=== PATIENT | female | born 1940 | race Caucasian/White ===

== ENCOUNTER → 2018-12-27 10:39 | Outpatient (CLI) | payer MEDICARE, OTHER, SELFPAY ==
[2018-12-24 13:00] VITALS: BMI 34.5
--- NOTE | 2018-12-27 10:43 | VDUE_ITS ---
Reason For Study: pre op testing, renal failure Right Arm Left Arm Right cephalic vein is compressible. Left cephalic vein is compressible. Right Cephalic Vein at the shoulder Left Cephalic Vein at the shoulder measures .269 x .285 cm. measures .333 x .366 cm. Right Cephalic Vein mid bicep measures .239 Left Cephalic Vein at mid bicep measures .316 x .255 cm. x .312 cm. Right Cephalic Vein above antecub Left Cephalic Vein above antecub measures .264 x .269 cm. measures .349 x .345 cm. Right Cephalic Vein below antecub Left Cephalic Vein below antecub measures .189 x .170 cm. measures .278 x .287 cm. Right Cephalic Vein in the forearm Left Cephalic Vein in the forearm measures .194 x .209 cm. measures .262 x .262 cm. Right Cephalic Vein at the wrist Left Cephalic Vein at the wrist measures .299 measures .254 x .259 cm. x .291 cm. Right basilic vein is compressible. Left basilic vein is compressible. Right Basilic Vein at the origin Basilic vein at origin measures .458 x .486 measures .332 x .332 cm. cm. Right Basilic Vein above antecub Basilic vein above antecub measures .316 measures .378 x .405 cm. x .325 cm. Right Basilic Vein below antecub Basilic vein below antecub measures .275 measures .199 x .224 cm. x .254 cm. Right Basilic Vein in the forearm Basilic vein in the forearm measures .242 measures .164 x .154 cm. x .270 cm. Right Basilic Vein at the wrist measures .119 Basilic vein at the wrist measures .212 x .135 cm. x .221 cm. Brachial artery 86.2 cm/s. Brachial artery 110 cm/s. Brachial artery .333 x .363 cm. Brachial artery .329 x .329 cm. Radial artery 83.8 cm/s. Radial artery 77.4 cm/s. Radial artery .191 x .179 cm. Radial artery .162 x .170 cm. Interpretation Summary Patent and compressible bilateral cephalic and basilic veins as noted. Small right forearm cephalic vein Adequate left forearm and upper arm cephalic vein. Adequate bilateral upper arm basilic veins. Small bilateral radial arteries. Normal bilateral brachial arteries. Ordering Physician: Hans Rousseau Performed By: Preston Hebert RVT ?
== END ==
PROVIDERS: Family Provider Internal Medicine; PCP Internal Medicine; Referring Provider Internal Medicine Cardiovascular Disease; Visit Provider Internal Medicine Cardiovascular Disease
DX: Z01.818 Encounter for other preprocedural examination (principal); N18.4 Chronic kidney disease, stage 4 (severe)
CPT/HCPCS: 93970; 93971; G0365

== ENCOUNTER 2019-01-14 07:28 | Day surgery (SDC) | payer MEDICARE, OTHER, SELFPAY ==
[2018-12-24 13:00] VITALS: BMI 34.5
[2019-01-14 07:55] VITALS: BP 141/61; PULSE 68; RESP 16; TEMP 36; O2SAT 94; BMI 33.2
[2019-01-14 08:20] LABS: Bedside Glucose 281 mg/dL (70-110)
[2019-01-14] MEDS: Insulin Lispro 100 UNIT/ML INSULN.PEN 6 UNIT SC (08:46)
[2019-01-14] MEDS: Heparin Injection (Vial) 5,000 UNIT/ML VIAL 5000 UNIT (09:37)
--- NOTE | 2019-01-14 09:57 | DCINST_ITS ---
Discharge Diet: Renal Diet Discharge Activity: May Not Drive - for 2-3 days or while taking narcotic pain medications., May Shower, May Take a Tub Bath - in 5 days. Lifting Restrictions: 5 pounds Keep extremity elevated above heart level: - - Keep arm elevated above the heart level for 3 days. Additional Activity Instructions:: Exercise hand vigorously with a stress ball. Call your doctor if your incision/area has: Continuous Slow Oozing, Sudden Increased Bleeding - apply pressure and call your doctor., Increased Pain/ Swelling, Increased Redness, Foul Smelling Discharge Call your doctor if you observe: Fever of 101 or Higher Suture Line Care: Avoid Pulling/Pushing, Avoid Pinching/Bending Cleanse incision/area with: Keep Dressing Clean & Dry Additional Dressing/Incision Instructions:: Change or remove dressing in 2-3 days. You may then protect with a gauze bandaid as needed Allergies/Adverse Reactions: Allergies No Known Allergies Allergy (Verified 01/07/19 12:46) Medications to take at Discharge Fenofibrate 134 mg PO DAILY 03/01/16 aspirin 81 mg tablet,delayed release 81 mg PO QDAY 11/09/17 atorvastatin 40 mg tablet 40 mg PO QDAY 11/09/17 carvedilol 25 mg tablet 12.5 mg PO BID tab 06/18/18 ranitidine 150 mg tablet 150 mg PO QDAY 06/18/18 clonidine HCl 0.3 mg tablet 0.3 mg PO TID tab 10/09/18 furosemide 40 mg tablet 40 mg PO BID 10/09/18 Insulin Glargine,Hum.rec.anlog [Basaglar Kwikpen U-100] 32 unit SC QHS 01/07/19 Insulin Lispro [Humalog] 20 unit SQ BREAKFAST 01/07/19 Insulin Lispro [Humalog] 20 unit SQ LUNCH 01/07/19 Insulin Lispro [Humalog] 29 unit SQ DINNER 01/07/19 Primary Care Physician: Gabriela Dickens [Primary Care Provider] - Test Results: Test results from this visit will be discussed in further detail at your follow- up appointment, if applicable. Please Follow Up With: Hans Rousseau MD - [phone] When: Call to make an appointment for suture removal and follow up in 7-10 days
[2019-01-14] MEDS: Bupivacaine Mpf 0.5% 30 ML VIAL (10:08)
--- NOTE | 2019-01-14 11:18 | OP.PCM_ITS ---
Problem List (1) Chronic renal failure, stage 4 (severe) Status: Acute Report of Operation Date of Procedure: 01/14/19 Pre-Operative Diagnosis: Stage IV chronic renal insufficiency Post-Operative Diagnosis: Same Surgery/Procedure Performed:: Left forearm radial to cephalic arteriovenous hemodialysis fistula creation Description of Surgical Findings:: Timeout and informed consent was obtained. 79-year-old female taken down from placement table underwent monitored anesthesia care. Left upper extremity was sterilely prepped and draped. Ultrasound mapping had been performed. 1% lidoc irving mixed 50-50 with 0.5% Marcaine was used as local anesthetic. A total of 8 cc was used. A slightly oblique transverse incision was made the left volar radial wrist. Sharp and blunt dissection was used to identify the cephalic vein and it was dissected free. Then sharp blunt dissection was used to identify the radial artery. The patient received 7000 units of heparin intravenously. The vein was secured distally with a Hemoclip was then spatulated to length. A peripheral vascular clamps were placed on these partially mobilized radial artery. 11 blade was used to make an arteriotomy which was extended with Jordan scissors. A end-to-side anastomosis was created with running 7-0 Prolene. Prior to completion there appeared to be adequate inflow and outflow. The anastomosis was completed with good flow. Some venospasm was gently treated with some massage. The vein appeared to have a good positional lie. Doppler suggested good flow. The wound was closed with a deep layer of interrupted 3-0 Vicryl and then a running septic or 4-0 Monocryl. Steri-Strips Telfa tape dressings applied. Sponge and instrument and needle counts were reported the surgery were correct. Blood loss was minimal. She tolerated procedure well was taken to the recovery area in satisfactory condition with a viable hand and no apparent complication. Specimens none. Drains none. Blood loss minimal. Hans Rousseau M.D., F.A.C.S. Type of Anesthesia:: Local MAC Anesthesiologist: Aaron Ruth
[2019-01-14 11:25] VITALS: BP 125/60; BP 141/61; PULSE 73; PULSE 75; RESP 18; TEMP 36.3; O2SAT 95; O2SAT 96
[2019-01-14 11:31] VITALS: BP 139/64; BP 141/61; PULSE 72; RESP 18; O2SAT 95
[2019-01-14 11:35] VITALS: BP 135/58; BP 141/61; PULSE 72; RESP 18; O2SAT 96
[2019-01-14 11:36] LABS: Bedside Glucose 205 mg/dL (70-110)
[2019-01-14 11:39] VITALS: BP 139/61; BP 141/61; PULSE 71; RESP 18; TEMP 36.2; O2SAT 96
[2019-01-14 12:58] VITALS: BP 141/57; BP 141/61; PULSE 65; RESP 18; TEMP 36.6; O2SAT 95
== END 2019-01-14 13:00 | disposition home or self-care (01) ==
LOC: SDC 07:29 → AC 07:30
PROVIDERS: Family Provider Internal Medicine; PCP Internal Medicine; Referring Provider Surgery; Visit Provider Surgery
PROC: (CPT 36821; principal; 2019-01-14 09:30)
DX: Z45.2 Encounter for adjustment and management of vascular access device (principal); I12.9 Hypertensive chronic kidney disease with stage 1 through stage 4 chronic kidney disease, or unspecified chronic kidney disease; E11.22 Type 2 diabetes mellitus with diabetic chronic kidney disease; N18.4 Chronic kidney disease, stage 4 (severe); E78.00 Pure hypercholesterolemia, unspecified; K21.9 Gastro-esophageal reflux disease without esophagitis; Z99.2 Dependence on renal dialysis; Z79.4 Long term (current) use of insulin; Z87.891 Personal history of nicotine dependence; Z79.899 Other long term (current) drug therapy
CPT/HCPCS: 36821; 82962

== ENCOUNTER 2019-02-14 11:49 | Day surgery (SDC) | payer MEDICARE, OTHER, SELFPAY ==
[2019-02-05 13:43] VITALS: BMI 34.2
[2019-02-14] VITALS (7 sets, daily range): BP systolic 141–165; BP diastolic 60–68; PULSE 65–73; RESP 16–17; TEMP 36.3–36.6; O2SAT 96–99; BMI 31.8
[2019-02-14 12:36] LABS: Bedside Glucose 155 mg/dL (70-110)
[2019-02-14] MEDS: Heparin Injection (Vial) 5,000 UNIT/ML VIAL 5000 UNIT (15:30)
[2019-02-14] MEDS: Bupivacaine Mpf 0.5% 30 ML VIAL (15:30)
--- NOTE | 2019-02-14 16:24 | PCM.OPRPT ---
Problem List (1) Problem with dialysis access Status: Acute Qualifiers: Encounter type: subsequent encounter Qualified Code(s): T82.898D - Other specified complication of vascular prosthetic devices, implants and grafts, subsequent encounter Report of Operation Date of Procedure: 02/14/19 Pre-Operative Diagnosis: Problem with left forearm radiocephalic hemodialysis access to deep for utilization Post-Operative Diagnosis: Same Surgery/Procedure Performed:: Transposition left forearm cephalic vein to radial artery arteriovenous hemodialysis fistula creation Description of Surgical Findings:: Timeout and informed consent was obtained. 79-year-old female was taken out from placement table underwent monitored anesthesia care local anesthetic. 30 cc of 1% lidocaine mixed 50-50 with 0.5% Marcaine and 15 cc of 0.5% lidocaine was used. The left upper extremity sterilely prepped draped. Ultrasound was used to map the course of the vein. Local was instilled. A longitudinal incision was made in the left forearm. Tedious sharp and blunt dissection was used to identify the cephalic vein. Side branches were secured with 3-0 Vicryl ligatures and hemoclips. The vein was completely released up to the antecubital space. Then sharp and blunt dissection was used at the wrist to identify the radial artery and circumferential control was obtained. The vein was ligated distally with 3-0 Vicryl it was irrigated and then using a [place] tunneler closer to the surface medial to the harvest site it was placed through the tunnel. Then the patient received 8000 units of heparin. Peripheral vascular clamps were placed on the radial artery and 11 blade was used to make an arteriotomy which was extended with Jordan scissors. The vein had been spatulated. A end-to-side anastomosis was created with a running 7-0 Prolene. Prior to completion was good antegrade and retrograde flow. The anastomosis was completed and noted to be widely patent. There was good flow through the fistula and this was confirmed with Doppler there was good positional lie. The wound was then closed with multiple deep layers of interrupted 3-0 Vicryl. The skin edges were approximated with a running subcuticular 4-0 Monocryl. Steri-Strips Telfa soft roll Uzair wrap applied. Sponge and instrument and needle counts were reported the surgeon be correct. Blood loss was she tolerated the procedure well hand was viable at the completion no apparent complication. Specimens none. Drains none. Blood loss minimal. Hans Rousseau M.D., F.A.C.S. Type of Anesthesia:: Local MAC Anesthesiologist: Aaron Ruth
--- NOTE | 2019-02-14 17:34 | DCINST_ITS ---
Discharge Diet: Renal Diet Discharge Activity: May Not Drive - for 2-3 days or while taking narcotic pain medications., May Not Shower, May Take a Tub Bath - in 5 days. Lifting Restrictions: 5 pounds Keep extremity elevated above heart level: - - Keep arm elevated above the heart level for 3 days. Additional Activity Instructions:: Exercise hand vigorously with a stress ball. Call your doctor if your incision/area has: Continuous Slow Oozing, Sudden Increased Bleeding - apply pressure and call your doctor., Increased Pain/ Swelling, Increased Redness, Foul Smelling Discharge Call your doctor if you observe: Fever of 101 or Higher Suture Line Care: Avoid Pulling/Pushing, Avoid Pinching/Bending Cleanse incision/area with: Keep Dressing Clean & Dry Additional Dressing/Incision Instructions:: You may remove your dressings in two days. Leave the steri strips on for one week. Elevate your arm for comfort. Please keep the incision clean and dry for 4 days then you may shower if no drainage from the wound Allergies/Adverse Reactions: Allergies No Known Allergies Allergy (Verified 02/11/19 11:09) Medications to take at Discharge Fenofibrate 134 mg PO DAILY 03/01/16 aspirin 81 mg tablet,delayed release 81 mg PO QDAY 11/09/17 atorvastatin 40 mg tablet 40 mg PO QDAY 11/09/17 ranitidine 150 mg tablet 150 mg PO QDAY 06/18/18 clonidine HCl 0.3 mg tablet 0.3 mg PO TID tab 10/09/18 furosemide 40 mg tablet 40 mg PO BID 10/09/18 Insulin Lispro [Humalog] 20 unit SQ BREAKFAST 01/07/19 Insulin Lispro [Humalog] 20 unit SQ LUNCH 01/07/19 Insulin Lispro [Humalog] 29 unit SQ DINNER 01/07/19 carvedilol 25 mg tablet 25 mg PO BID tab 01/29/19 Insulin Glargine [Lantus (BKC)] 32 units SC QHS 02/11/19 Primary Care Physician: Gabriela Dickens [Primary Care Provider] - Test Results: Test results from this visit will be discussed in further detail at your follow- up appointment, if applicable. Please Follow Up With: Hans Rousseau MD - [phone] When: Call to make an appointment for suture removal and follow up in 7-10 days
== END 2019-02-14 18:00 | disposition home or self-care (01) ==
LOC: SDC 11:51 → AC 11:51
PROVIDERS: Family Provider Internal Medicine; PCP Internal Medicine; Referring Provider Surgery; Visit Provider Surgery
PROC: (CPT 36820; principal; 2019-02-14 13:45)
DX: T82.898A Other specified complication of vascular prosthetic devices, implants and grafts, initial encounter (principal); I12.9 Hypertensive chronic kidney disease with stage 1 through stage 4 chronic kidney disease, or unspecified chronic kidney disease; E11.22 Type 2 diabetes mellitus with diabetic chronic kidney disease; N18.4 Chronic kidney disease, stage 4 (severe); E11.65 Type 2 diabetes mellitus with hyperglycemia; E78.5 Hyperlipidemia, unspecified; K21.9 Gastro-esophageal reflux disease without esophagitis; Z99.2 Dependence on renal dialysis; Z79.4 Long term (current) use of insulin; Z79.82 Long term (current) use of aspirin; Z79.899 Other long term (current) drug therapy; Z87.891 Personal history of nicotine dependence
CPT/HCPCS: 01844; 36820; 82962; J7120

== ENCOUNTER → 2020-01-01 13:58 | Outpatient (CLI) | payer MEDICARE, OTHER, SELFPAY ==
[2019-04-08 12:39] VITALS: BMI 31.8
--- NOTE | 2020-01-01 14:58 | NEURO_ITS ---
NCS and/or EMG Patient Report Ordering Doctor: Gabriela Dickens DATE OF SERVICE: 01/01/20 Brian Bentley is an 79-year-old female presents for electrodiagnostic testing of the left upper limb. She reports numbness and tingling in the left hand. Electrodiagnostic findings: Left median motor nerve demonstrates prolonged dista l latency with normal amplitude and reduced conduction velocity. Normal left ulnar motor response, including conduction across the elbow. Normal median ulnar F-wave. Prolonged left median sensory latency at the wrist. Needle EMG testing was deferred due to dialysis catheter in the left forearm. Electrodiagnostic impression: This is an abnormal study. 1. Electrodiagnostic findings demonstrate left-sided median mononeuropathy. This is consistent with a moderate left carpal tunnel syndrome. If there are any further questions, please do not hesitate to contact me.
== END ==
PROVIDERS: PCP Internal Medicine; Referring Provider Internal Medicine; Visit Provider Internal Medicine
DX: R20.0 Anesthesia of skin (principal); R20.2 Paresthesia of skin
CPT/HCPCS: 95909

== ENCOUNTER 2020-06-30 07:29 | Inpatient (IN) | payer MEDICARE, OTHER, SELFPAY ==
[2020-01-24 13:25] VITALS: BMI 31.8
[2020-06-30] VITALS (23 sets, daily range): BP systolic 92–167; BP diastolic 23–112; PULSE 77–93; RESP 17–24; TEMP 36.1–37.3; O2SAT 93–100; BMI 36.0
--- NOTE | 2020-06-30 06:50 | RAD_ITS ---
STUDY: X-RAY CHEST REASON FOR EXAM: Female, 80 years old. reps insufficiency, severe sepsis TECHNIQUE: Single AP portable view of the chest. COMPARISON: None. FINDINGS: EKG electrodes are seen. Minimal increased markings at the lung bases suggestive of bibasilar atelectasis. There is no demonstrated pleural abnormality. There is mild cardiac enlargement. Normal mediastinum and chaz. Normal visualized pulmonary arteries. There is atherosclerotic calcification of the aortic arch with tortuosity. Normal visualized thoracic spine. Normal visualized ribs, clavicles, and shoulders. There is no demonstrated abnormality of the visualized soft tissue structures of the upper abdomen. RAD/Chest 1 View (Portable) IMPRESSION: Minimal degree of increased linear markings at the lung bases suggestive of bibasilar atelectasis. Electronically Signed: Gal Guzman, at 9:49 EDT , Service support ,
--- NOTE | 2020-06-30 06:55 | CON.PCM_ITS ---
Reason for Consult Date of Consultation: 06/30/20 Reason for Consultation: Severe Sepsis History of Present Illness: The patient is an 80-year-old female, with a history as outlined below, who presented to the medical intensive care unit as a transfer of care from [facility] on the morning of June 30. The patient apparently presented to the outside emergency department at 2316 hours with subjective fever, chills and shortness of breath. The patient does have end-stage renal disease and is on hemodialysis on a Monday, Monday, Monday schedule. Outside laboratory work-up was significant for a creatinine of 4.2. Arterial blood gas revealed a pH of 7.4 with a corresponding PCO2 of 42 and PO2 of 72. Urine analysis was negative for nitrites, positive for leukocytes with greater than 50 white blood cells and 4+ urine bacteria. Lactate was elevated to 2.2. BNP and troponin were within normal limits. White blood cell count was within normal limits. The patient did have normal documented systolic blood pressures throughout her stay at the outside hospital emergency department. Of note, the patient was only given 500 cc of LR at the outside hospital but did receive both vancomycin and Zosyn. A CTA chest was obtained and revealed no evidence for pulmonary embolism. There was evidence of scattered subsegmental atelectasis without evidence of focal infiltrate. On initial presentation to the medical intensive care unit, the patient had several blood pressure readings with mean arterial pressures less than 60 mmHg. Orders for sepsis fluids at 30 cc/kg were ordered. Past Medical History Past Medical History (Chronic Problems): Chronic Problems (Last Reviewed 06/30/20 @ 09:[address] 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 Continues to use salt as well Hypertension associated with chronic kidney disease due to type 2 diabetes mellitus (Chronic) BP remains elevated. 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 Diet and food choices remain an issue. Has not changed her eating habits and therefore BG readings have never stabilized. Pt has made choices which have continued to create high BG readings. She is now being prepped for upcoming dialysis. She is doing well with making insulin adjustments and making BG corrections. She is doing fairly well with exercise. Lymphedema of left lower extremity (Chronic) Medical History: Medical History (Last Reviewed 06/30/20 @ 09:[address] Tadeo Larsen MD) Carpal tunnel syndrome of left wrist (Chronic) G56.02 Problem with dialysis access (Chronic) T82.898A Chronic renal failure, stage 4 (severe) (Chronic) N18.4 Melanoma (Chronic) C43.9 Carpal tunnel syndrome (Chronic) G56.00 HTN (hypertension) (Chronic) I10 Hyperlipidemia (Chronic) E78.5 Diabetes type 2, uncontrolled (Chronic) E11.65 dx : last exacerbation : dka : never hypoglycemic episode : 11/22 er visit : never Allergies No Known Allergies Allergy (Verified 06/30/20 06:11) Home Medications: Ambulatory Orders Medication Instructions Recorded Fenofibrate 134 mg PO DAILY 03/01/16 aspirin 81 mg tablet,delayed 81 mg PO QDAY 11/09/17 release atorvastatin 40 mg tablet 40 mg PO QHS 11/09/17 ranitidine HCl 150 mg tablet 150 mg PO QDAY 06/18/18 clonidine HCl 0.3 mg tablet 0.3 mg PO BID tab 10/09/18 furosemide 40 mg tablet 40 mg PO BID 10/09/18 Insulin Lispro [Humalog] 20 - 26 unit SQ TIDCM 01/07/19 carvedilol 25 mg tablet 25 mg PO QHS tab 01/29/19 Insulin Glargine [Lantus (BKC)] 45 units SUBCUT QHS 02/11/19 calcium carbonate 500 mg calcium 500 mg PO BID 01/24/20 (1,250 mg) chewable tablet pregabalin 100 mg capsule 100 mg PO QHS cap 01/24/20 Calcium Acetate 667 mg PO TID 06/30/20 Carvedilol [Coreg] 12.5 mg PO DAILY 06/30/20 Cholecalciferol (Vitamin D3) 5,000 unit PO DAILY 06/30/20 [Vitamin D3] Folic Acid/Vit B Complex and C 0.8 mg PO DAILY 06/30/20 [Renal-Shameka Tablet] Gabapentin [Neurontin] 100 mg PO DAILY 06/30/20 Surgical History: Surgical History (Last Reviewed 01/24/20 @ 13:23 by Jolene Juan) Hx of arteriovenostomy for renal dialysis (Chronic) Z99.2 01/14/19 Fistulagram- 02/14/19 S/P CECILIO-BSO (Chronic) Z90.710, Z90.722, Z90.79 H/O bilateral cataract extraction (Inactive) Z98.41, Z98.42 H/O colonoscopy (Inactive) Z98.890 H/O laminectomy (Inactive) Z98.890 melanoma removal (Acute) H/O carpal tunnel repair (Inactive) Z98.890 Surgical History: - - Lymph node resection L groin, otherwise noncontributory Smoking Status: Former smoker - *Family History Maternal Family History: Family History (Last Reviewed 06/30/20 @ 09:[address] Tadeo Larsen MD) Mother Diabetes Heart disease Hypertension High cholesterol Seizures Father Diabetes Heart disease High cholesterol Hypertension Kidney disease CVA (cerebral vascular accident) Review of Systems Constitutional: Reports: Chills, Fever Eyes: Denies: Blurred vision, Double vision HEENT: Denies: Head Aches, Sinus Congestion, Sinus Drainage Cardiovascular: Denies: Chest Pain, Palpitations Respiratory: Reports: Shortness of Breath. Denies: Cough Gastrointestinal: Denies: Abdominal Pain, Nausea, Vomiting Genitourinary: Denies: Dysuria Musculoskeletal: Denies: Joint Pain, Joint Tenderness Skin: Denies: Rash, Wounds Neurological: Denies: Numbness, Tingling, Focal weakness Psychiatric: Denies: Anxiety, Depression, Homicidal Ideations, Suicidal Ideations Hematologic/ Lymphatic: Reports: Anemia Patient Problems: Active and Suspected Problems (Last Reviewed 06/30/20 @ 09:[address] Tadeo Larsen MD) Sepsis (Acute) UTI (urinary tract infection) (Acute) ESRD (end stage renal disease) on dialysis (Acute) Objective: The patient's most recent lab work, culture data and imaging studies have all been personally reviewed. - Physical Exam Vitals/I&O's: Vital Signs Temp Pulse Resp BP Pulse Ox 98.1 F 90 17 92/23 L 93 06/30/20 06:07 06/30/20 06:30 06/30/20 06:30 06/30/20 06:30 06/30/20 06:30 Oxygen Flow Rate (L/min) 4 Oxygen Delivery Method Nasal Cannula Weight: 203 lb 7.787 oz Body Mass Index (BMI) 36.0 General: Alert, Cooperative HEENT: Atraumatic, PERRLA, Normocephalic Oral: Dry Mucosa Neck: Supple, No Nodes, Trachea Midline Lungs: No rhonchi, No wheeze, No rales, Diminished Cardiovascular: Regular rate, Regular Rhythm Abdomen: Bowel Sounds Present, Soft, Non Tender Extremities: No clubbing, No cyanosis, No edema Skin: No breakdown Musculoskeletal: No Muscle Wasting Lymphatic: No Cervical, Supraclavicular, or Inguinal Adenopathy Neurological: Cranial nerves II-XII grossly intact, Neuro grossly intact Psych/Mental Status: Flat Affect Labs (Last 48 Hours) 06/30/20 06/30/20 06/30/20 06:48 07:05 07:05 WBC 4.4 RBC 2.12 L Hgb 6.7 L Hct 22.1 L MCV 104.2 H MCH 31.6 MCHC 30.3 L RDW Std Deviation 54.6 H RDW Coeff of Rohan 14.6 Plt Count MPV 12.1 H Immature Gran % (Auto) 0.900 Neut % (Auto) 84.0 H Lymph % (Auto) 5.5 L [place] % (Auto) 7.1 Eos % (Auto) 2.5 Baso % (Auto) 0.0 Absolute Neuts (auto) 3.7 Absolute Lymphs (auto) 0.24 L Total Counted DISASTER OR DAMAGE [employer]OL SPECIALIST Neutrophils % (Manual) 82 H Lymphocytes % (Manual) 12 L Monocytes % (Manual) 6 Nucleated RBC % 0 Differential Comment MANUAL DIFF Platelet Estimate ADEQUATE Plt Morphology Comment LARGE RBC Morphology NORM C+C Hypochromasia 1+ Sodium 139 Potassium 3.7 Chloride 108 H Carbon Dioxide 16.0 L Anion Gap 15 BUN 28 H Creatinine 2.36 H Estim Creat Clear Calc 15.20 Est GFR (MDRD) Af Amer 25 L Est GFR (MDRD) Non-Af 21 L BUN/Creatinine Ratio 11.9 Glucose 72 L Lactic Acid Calcium 6.7 L Total Bilirubin 0.30 AST 26 ALT 18 Alkaline Phosphatase 32 L Total Protein 3.2 L Albumin 1.4 L Globulin 1.8 L Albumin/Globulin Ratio 0.8 L Urine Color Urine Clarity Urine pH Ur Specific [place] Urine Protein Urine Glucose (UA) Urine Ketones Urine Occult Blood Urine Nitrite Urine Bilirubin Urine Urobilinogen Ur Leukocyte Esterase Urine RBC Urine WBC Ur Squamous Epith Cells Urine Bacteria Urine Mucus COVID-19 (BRIAN) Not Detected MRSA (PCR) POC Glucose 06/30/20 06/30/20 06/30/20 07:05 08:10 09:40 WBC RBC Hgb Hct MCV MCH MCHC RDW Std Deviation RDW Coeff of Rohan Plt Count MPV Immature Gran % (Auto) Neut % (Auto) Lymph % (Auto) [place] % (Auto) Eos % (Auto) Baso % (Auto) Absolute Neuts (auto) Absolute Lymphs (auto) Total Counted Neutrophils % (Manual) Lymphocytes % (Manual) Monocytes % (Manual) Nucleated RBC % Differential Comment Platelet Estimate Plt Morphology Comment RBC Morphology Hypochromasia Sodium Potassium Chloride Carbon Dioxide Anion Gap BUN Creatinine Estim Creat Clear Calc Est GFR (MDRD) Af Amer Est GFR (MDRD) Non-Af BUN/Creatinine Ratio Glucose Lactic Acid 11.3 H* 1.3 Calcium Total Bilirubin AST ALT Alkaline Phosphatase Total Protein Albumin Globulin Albumin/Globulin Ratio Urine Color Urine Clarity Urine pH Ur Specific [place] Urine Protein Urine Glucose (UA) Urine Ketones Urine Occult Blood Urine Nitrite Urine Bilirubin Urine Urobilinogen Ur Leukocyte Esterase Urine RBC Urine WBC Ur Squamous Epith Cells Urine Bacteria Urine Mucus COVID-19 (BRIAN) MRSA (PCR) Negative POC Glucose 06/30/20 06/30/20 06/30/20 09:40 09:40 12:42 WBC 6.4 RBC 3.21 L Hgb 9.7 L Hct 32.3 L MCV 100.6 H MCH 30.2 MCHC 30.0 L RDW Std Deviation 54.1 H RDW Coeff of Rohan 14.6 Plt Count MPV 12.7 H Immature Gran % (Auto) 0.500 Neut % (Auto) 83.2 H Lymph % (Auto) 6.9 L [place] % (Auto) 6.4 Eos % (Auto) 2.8 Baso % (Auto) 0.2 Absolute Neuts (auto) 5.4 Absolute Lymphs (auto) 0.44 L Total Counted Neutrophils % (Manual) Lymphocytes % (Manual) Monocytes % (Manual) Nucleated RBC % 0 Differential Comment Not Reportable Platelet Estimate SLT DEC Plt Morphology Comment RBC Morphology Hypochromasia Sodium Potassium Chloride Carbon Dioxide Anion Gap BUN Creatinine Estim Creat Clear Calc Est GFR (MDRD) Af Amer Est GFR (MDRD) Non-Af BUN/Creatinine Ratio Glucose Lactic Acid Calcium Total Bilirubin AST ALT Alkaline Phosphatase Total Protein Albumin Globulin Albumin/Globulin Ratio Urine Color Straw Urine Clarity Sl. Cloudy Urine pH 5.0 Ur Specific [place] 1.015 Urine Protein 100 H Urine Glucose (UA) Normal Urine Ketones Negative Urine Occult Blood 50 H Urine Nitrite Negative Urine Bilirubin Negative Urine Urobilinogen Normal Ur Leukocyte Esterase 500 H Urine RBC 0-5 SEEN Urine WBC >100 SEEN Ur Squamous Epith Cells 0-5 SEEN Urine Bacteria 3+ Urine Mucus 0 SEEN COVID-19 (BRIAN) MRSA (PCR) POC Glucose 124 H Microbiology 06/30/20 06:55 Mucosa - Nasopharyngeal Respiratory Panel (PCR) - Final Clinical Impression(s) from Imaging Studies Chest X-Ray 06/30/20 06:50 IMPRESSION: Minimal degree of increased linear markings at the lung bases suggestive of bibasilar atelectasis. Electronically Signed: Gal Guzman, at 9:49 EDT , Service support , Current Medications Sodium Chloride () 250 mls @ 15 mls/hr IV .[id number] PRN PRN Reason: Saline Flush Sodium Chloride () 250 mls @ 15 mls/hr IV .[id number] PRN PRN Reason: Additional IVPB Infusion Sodium Chloride () 250 mls @ 15 mls/hr IV .[id number] PRN PRN Reason: Saline Flush Piperacillin Sod/Tazobactam (Sod 3.375 gm/ Sodium Chloride) 50 mls @ 12.5 mls/hr IV Q8 RAH Vancomycin IV Pharmacy to Dose (1 ea/ Sodium Chloride) 500 mls @ 250 mls/hr IV X1 PRN; Protocol PRN Reason: Rx to Dose Lactated Ringer's () 1,000 mls @ 999 mls/hr IV .[id number] [facility] Stop: 06/30/20 07:50 Sodium Chloride () 10 - 40 ml IV UD PRN PRN Reason: SALINE FLUSH Sodium Chloride () 10 - 40 ml IV UD PRN PRN Reason: SALINE FLUSH Assessment/Plan Active and Suspected Problems (Last Reviewed 06/30/20 @ 09:[address] Tadeo Larsen MD) Sepsis (Acute) UTI (urinary tract infection) (Acute) ESRD (end stage renal disease) on dialysis (Acute) RECOMMENDATIONS: 1. Additional fluid resuscitation per sepsis protocol. 2. Obtain repeat lactate level. 3. Initiate broad-spectrum antimicrobials. 4. Obtain blood and urine cultures. 5. Check MRSA screen and await results of coronavirus PCR. IMPRESSIONS: 1. Severe sepsis Most likely secondary to urinary tract source of infection. Sepsis protocol fluids have been ordered. The patient only received 500 cc at the outside hospital prior to transfer. Upon arrival to the ICU she was notably hypotensive. Plan to completely fluid resuscitate and reassess hemodynamics. In the interim, broad-spectrum antimicrobials will be initiated. Cultures will be obtained. MRSA screen and coronavirus PCR are pending. Although initial lactate was elevated to 11.3, I do suspect that this is erroneous, and likely the consequence of tourniquet use with blood draw. We will plan to repeat lactate and confirm. 2. End-stage renal disease on hemodialysis Nephrology will be consulted to assist with hemodialysis needs. The patient has not missed any sessions recently. 3. History of hypertension/hyperlipidemia/diabetes mellitus Complicates care, management, recovery and prognosis. Hold antihypertensives/Lasix for now, given tenuous hemodynamics. This note was generated with [employer] dictation software. It may contain incorrect words, spelling, and punctuation that were not noted in checking the note before signing. Inpatient E&M: [id number] Init Hosp L3
--- NOTE | 2020-06-30 06:56 | SEPSIS_ITS ---
Sepsis Note - Physical Exam/Vitals Subjective: The patient was reevaluated after fluid resuscitation efforts were completed. Objective: Temp Pulse Resp BP Pulse Ox 98.1 F 90 17 92/23 L 93 06/30/20 06:07 06/30/20 06:30 06/30/20 06:30 06/30/20 06:30 06/30/20 06:30 General: Alert, Cooperative Lungs: Diminished Cardiovascular: Regular rate, Regular Rhythm Capillary Refill: <3 seconds Peripheral Pulses: Normal Skin Color: [place] - Assessment/Plan Continue current supportive measures. - Attestation Sepsis Attestation: Sepsis re-evaluation was performed
[2020-06-30] MEDS: Lactated Ringers 1,000 ML 750 ML IV (07:05)
--- NOTE | 2020-06-30 07:28 | HP.PCM_ITS ---
Problem List (1) Carpal tunnel syndrome of left wrist Status: Chronic (2) Problem with dialysis access Status: Chronic Qualifiers: Encounter type: subsequent encounter Qualified Code(s): T82.898D - Other specified complication of vascular prosthetic devices, implants and grafts, subsequent encounter (3) Hx of arteriovenostomy for renal dialysis Status: Chronic Comment: 01/14/19 Fistulagram- 02/14/19 (4) Chronic renal failure, stage 4 (severe) Status: Chronic (5) S/P CECILIO-BSO Status: Chronic (6) Melanoma Status: Chronic (7) Carpal tunnel syndrome Status: Chronic (8) HTN (hypertension) Status: Chronic (9) Hyperlipidemia Status: Chronic (10) Diabetes type 2, uncontrolled Status: Chronic Comment: dx : last exacerbation : dka : never hypoglycemic episode : 11/22 er visit : never (11) melanoma removal Status: Acute (12) 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 Continues to use salt as well (14) Hypertension associated with chronic kidney disease due to type 2 diabetes mellitus Status: Chronic Comment: BP remains elevated. 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 Diet and food choices remain an issue. Has not changed her eating habits and therefore BG readings have never stabilized. Pt has made choices which have continued to create high BG readings. She is now being prepped for upcoming dialysis. She is doing well with making insulin adjustments and making BG corrections. She is doing fairly well with exercise. (17) Lymphedema of left lower extremity Status: Chronic (18) Sepsis Status: Acute (19) UTI (urinary tract infection) Status: Acute History of Present Illness Date of Admission: 06/30/20 Chief Complaint: Severe sepsis The patient is a 80 year old F last medical history single for diabetes mellitus type 2, end-stage renal disease on hemodialysis transferred from [facility] account of severe sepsis. Patient did have dialysis the day prior to his admission. Was seen and evaluated at the above hospital a diagnosis of sepsis secondary to UTI was made. Patient did ask to be transferred to the [facility]. Was transferred directly from [facility] ED to the ICU. Patient upon arrival to the emergency department was found to be hypotensive with elevated lactic acid level management was initiated per protocol. Severe sepsis order set. On further questioning patient admitted to still making urine. She also admitted to fever and chills. Past Medical History Past Medical History (Chronic Problems): Chronic Problems (Last Reviewed 06/30/20 @ 09:[address] 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 Continues to use salt as well Hypertension associated with chronic kidney disease due to type 2 diabetes mellitus (Chronic) BP remains elevated. 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 Diet and food choices remain an issue. Has not changed her eating habits and therefore BG readings have never stabilized. Pt has made choices which have continued to create high BG readings. She is now being prepped for upcoming dialysis. She is doing well with making insulin adjustments and making BG corrections. She is doing fairly well with exercise. Lymphedema of left lower extremity (Chronic) Medical History: Medical History (Last Reviewed 06/30/20 @ 09:[address] Tadeo Larsen MD) Carpal tunnel syndrome of left wrist (Chronic) G56.02 Problem with dialysis access (Chronic) T82.898A Chronic renal failure, stage 4 (severe) (Chronic) N18.4 Melanoma (Chronic) C43.9 Carpal tunnel syndrome (Chronic) G56.00 HTN (hypertension) (Chronic) I10 Hyperlipidemia (Chronic) E78.5 Diabetes type 2, uncontrolled (Chronic) E11.65 dx : last exacerbation : dka : never hypoglycemic episode : 11/22 er visit : never Allergies No Known Allergies Allergy (Verified 06/30/20 06:11) Home Medications: Ambulatory Orders Medication Instructions Recorded Fenofibrate 134 mg PO DAILY 03/01/16 aspirin 81 mg tablet,delayed 81 mg PO QDAY 11/09/17 release atorvastatin 40 mg tablet 40 mg PO QDAY 11/09/17 ranitidine HCl 150 mg tablet 150 mg PO QDAY 06/18/18 clonidine HCl 0.3 mg tablet 0.2 mg PO BID tab 10/09/18 furosemide 40 mg tablet 40 mg PO BID 10/09/18 Insulin Lispro [Humalog] 20 - 26 unit SQ TIDCM 01/07/19 carvedilol 25 mg tablet 25 mg PO BID tab 01/29/19 Insulin Glargine [Lantus (BKC)] 40 units SUBCUT QHS 02/11/19 calcium carbonate 500 mg calcium 500 mg PO BID 01/24/20 (1,250 mg) chewable tablet pregabalin 100 mg capsule 100 mg PO QHS cap 01/24/20 Surgical History: Surgical History (Last Reviewed 01/24/20 @ 13:23 by Jolene Juan) Hx of arteriovenostomy for renal dialysis (Chronic) Z99.2 01/14/19 Fistulagram- 02/14/19 S/P CECILIO-BSO (Chronic) Z90.710, Z90.722, Z90.79 H/O bilateral cataract extraction (Inactive) Z98.41, Z98.42 H/O colonoscopy (Inactive) Z98.890 H/O laminectomy (Inactive) Z98.890 melanoma removal (Acute) H/O carpal tunnel repair (Inactive) Z98.890 Surgical History: - - Lymph node resection L groin, otherwise noncontributory Smoking Status: Former smoker - *Family History Maternal Family History: Family History (Last Reviewed 06/30/20 @ 09:[address] Tadeo Larsen MD) Mother Diabetes Heart disease Hypertension High cholesterol Seizures Father Diabetes Heart disease High cholesterol Hypertension Kidney disease CVA (cerebral vascular accident) Review of Systems Constitutional: Reports: Chills, Fever, Malaise, Weakness HEENT: Denies: Head Aches, Sinus Congestion, Sinus Drainage Cardiovascular: Denies: Chest Pain, Orthopnea, Palpitations, Paroxysmal Noc. Dyspnea Respiratory: Denies: Cough, Shortness of breath at rest, Shortness of breath upon exertion, Sputum production Gastrointestinal: Denies: Abdominal Pain, Hematemesis, Hematochezia, Nausea, Melena, Vomiting Genitourinary: Denies: Dysuria, Frequency, Hematuria, Urgency Musculoskeletal: Denies: Joint Pain, Joint Tenderness Skin: Denies: Rash Neurological: Denies: Focal weakness, Numbness, Tingling Psychiatric: Denies: Homicidal Ideations, Suicidal Ideations Hematologic/ Lymphatic: Denies: Easy Bruising, Easy Bleeding VTE Information - Inpt Only VTE Present on Admission: No VTE Mechan Device Prophylaxis: None VTE Pharm Prophylaxis ordered?: Yes Patient Problems: Active and Suspected Problems (Last Reviewed 06/30/20 @ 09:[address] Tadeo Larsen MD) Sepsis (Acute) UTI (urinary tract infection) (Acute) Objective: GENERAL: Somewhat lethargic HEENT: Atraumatic; EYES; Anicteric, Normal Conjunctiva NECK; supple, normal thyroid, RESPIRATORY: Diminished to auscultation CARDIOVASCULAR: Regular S1 S2, GI: soft, normoactive bowel sounds, : No Renal angle tenderness; EXTREMITIES: No edema, no clubbing, MUSCULOSKELETAL: no muscle waisting NEURO: no lateralizing signs. SKIN: No Rash PSYCH; Flat affect - Physical Exam Vitals/I&O's: Vital Signs Temp Pulse Resp BP Pulse Ox 98.1 F 90 17 92/23 L 93 06/30/20 06:07 06/30/20 06:30 06/30/20 06:30 06/30/20 06:30 06/30/20 07:15 Oxygen Flow Rate (L/min) 4 Oxygen Delivery Method Nasal Cannula Weight: 92.3 kg Body Mass Index (BMI) 36.0 Laboratory Results 06/30/20 06:48: COVID-19 (BRIAN) Pending 06/30/20 07:05: WBC Pending, RBC Pending, Hgb Pending, Hct Pending, MCV Pending, MCH Pending, MCHC Pending, RDW Std Deviation Pending, RDW Coeff of Rohan Pending, Plt Count Pending, Neut % (Auto) Pending, Absolute Neuts (auto) Pending 06/30/20 07:05: Sodium Pending, Potassium Pending, Chloride Pending, Carbon Dioxide Pending, Anion Gap Pending, BUN Pending, Creatinine Pending, Est GFR (MDRD) Af Amer Pending, Est GFR (MDRD) Non-Af Pending, BUN/Creatinine Ratio Pending, Glucose Pending, Calcium Pending, Total Bilirubin Pending, AST Pending, ALT Pending, Alkaline Phosphatase Pending, Total Protein Pending, Albumin Pending 06/30/20 07:05: Lactic Acid Pending Current Medications Sodium Chloride () 250 mls @ 15 mls/hr IV .[id number] PRN PRN Reason: Saline Flush Sodium Chloride () 250 mls @ 15 mls/hr IV .[id number] PRN PRN Reason: Additional IVPB Infusion Sodium Chloride () 250 mls @ 15 mls/hr IV .[id number] PRN PRN Reason: Saline Flush Piperacillin Sod/Tazobactam (Sod 3.375 gm/ Sodium Chloride) 50 mls @ 12.5 mls/hr IV Q8 RAH Vancomycin IV Pharmacy to Dose (1 ea/ Sodium Chloride) 500 mls @ 250 mls/hr IV X1 PRN; Protocol PRN Reason: Rx to Dose Lactated Ringer's () 1,000 mls @ 999 mls/hr IV .Q1H1M RAH Stop: 06/30/20 07:50 Sodium Chloride () 1,000 mls @ 500 mls/hr IV .Q2H RAH Stop: 06/30/20 08:59 Sodium Chloride () 500 mls @ 999 mls/hr IV .Q31M ONE Stop: 06/30/20 07:30 Sodium Chloride () 10 - 40 ml IV UD PRN PRN Reason: SALINE FLUSH Sodium Chloride () 10 - 40 ml IV UD PRN PRN Reason: SALINE FLUSH Assessment/Plan All Active Problems (Last Reviewed 01/24/20 @ 13:23 by Jolene Juan) Sepsis (Acute) UTI (urinary tract infection) (Acute) melanoma removal (Acute) Patient is an 80-year-old lady admitted with severe sepsis 1. Septic shock ?Secondary to acute cystitis. Patient had markedly elevated lactic acid level of 11. Patient was hypotensive with a map of 50 when first arrived on the floor resuscitated with IV fluids per protocol in addition to broad-spectrum antibiotic therapy and consultation placed to interventional radiologist. Patient was placed in droplet and contact isolation whilst ruling out COVID-19 2. End-stage renal disease ?Patient is on hemodialysis on Wednesdays and Fridays consultation placed to nephrology for dialysis orders 3. Diabetes mellitus type II -Complications including diabetic nephropathy . Placed on long acting insulin, Accu-Cheks a.c. and at bedtime and covered with sliding scale insulin 4. Dyslipidemia ?Patient is on fenofibrate 5. Essential hypertension ?Patient blood pressure medications on hold in view of her presentation 6. DVT prophylaxis ?SC heparin Advance planning; did discuss with the patient and family regarding advanced directives as well as CODE STATUS. Did explain the various scenarios involved ( FULL CODE, DNR CCA, DNR CCA with no intubation, and DNR CC and what each meant) patient elected to be DNR CCA no intubation. Order was placed. Time spent on discussion 18 minutes. Inpatient E&M: 86957 Init Hosp L3 Procedures: 69223 Advncd Care Plan 30 Min
[2020-06-30 07:31] LABS: ALB/GLOB Ratio 0.8 RATIO (0.9-2.4); AST(SGOT) 26 U/L (15-37); Alanine Aminotransfer ALT/SGPT 18 U/L (13-56); Albumin, Serum 1.4 g/dL (3.2-5.0); Alkaline Phosphatase 32 U/L (45-117); Anion Gap 15 (5-15); BUN 28 mg/dL (7-18); BUN/Creat Ratio 11.9 RATIO (10-20); Calcium,Total 6.7 mg/dL (8.5-10.1); Chloride 108 mmol/L (98-107); Creatinine, Serum 2.36 mg/dL (0.55-1.02); EST Glomerular Filtration Rate 21 mL/min (>60); Est Glom Filt Rate - Afr Amer 25 mL/min (>60); Globulin 1.8 g/dL (2.2-4.2); Glucose 72 mg/dL (74-106); Potassium 3.7 mmol/L (3.5-5.1); Protein, Total 3.2 g/dL (6.4-8.2); Sodium Level 139 mmol/L (136-145)
[2020-06-30 07:43] LABS: Lymphocyte 12 % (19-41); Monocyte 6 % (0-10); Neutrophil-Segmented 82 % (47-70)
[2020-06-30 07:44] LABS: Differential Comment MANUAL DIFF; Platelet Estimate ADEQUATE (ADEQ); Red Cell Morphology NORM C+C NORMAL (NORM C&C)
[2020-06-30 07:45] LABS: Lactic Acid 11.3 mmol/L (0.4-1.9)
[2020-06-30 08:36] LABS: Absolute Lymphocyte Count 0.24 X10^3/uL (0.83-4.51); Absolute Neutrophil Count 3.7 X10^3/uL (2.0-7.7); Eosinophil# 0.11 X10^3/uL; Eosinophils% 2.5 % (0-5); Hematocrit 22.1 % (37-47); Hemoglobin 6.7 g/dL (12.0-15.0); Lymphocyte # 0.24 X10^3/ul (4.0); Lymphocyte % 5.5 % (19-41); Mean Corp Hgb Conc 30.3 g/dL (32-36); Mean Corpuscular Hgb 31.6 pg (27.0-32.0); Mean Corpuscular Volume 104.2 fL (81-99); Mean Platelet Vol. 12.1 fl (6.2-12.0); Monocyte# 0.31 X10^3/uL; Monocyte% 7.1 % (0-10); NRBC Flagged by Analyzer 0 % (0-5); Neutrophil # 3.66 X10^3/uL (2.7-7.7); POSITIVE COUNT YES; POSITIVE DIFFERENTIAL YES; POSITIVE MORPHOLOGY YES; RBC Distribution Width CV 14.6 % (11.6-14.6); RBC Distribution Width SD 54.6 fl (35.1-43.9); Red Blood Count 2.12 M/mm3 (4.2-5.4); White Blood Count 4.4 K/mm3 (4.4-11.0)
[2020-06-30] MEDS: 0.9% Normal Saline 1,000 ML 500 ML IV (09:27)
[2020-06-30 09:30] LABS: Differential Indicated SCAN CRITERIA MET
[2020-06-30 09:34] LABS: Hypochromasia 1+; Platelet Morphology LARGE
[2020-06-30] MEDS: Heparin Injection (Vial) 5,000 UNIT/ML VIAL 5000 UNIT SC ×2 (09:34→21:39)
[2020-06-30 09:47] LABS: Mucous, Urine 0 SEEN /hpf (<or=2+)
[2020-06-30 09:50] LABS: Color, Urine Straw (Yellow); Glucose, Dipstick Normal (Normal); Ketone-Dipstick Negative (Negative); Leukocyte Esterase-Dipstick 500 /ul (Negative); Nitrite-Dipstick Negative (Negative); Occult Blood-Urine 50 /ul (Negative); Protein-Dipstick 100 mg/dl (Negative); Specific Gravity, Urine 1.015 (1.002-1.030); Urine Bilirubin Dipstick Negative (Negative); Urine Clarity Sl. Cloudy (Clear); Urine Urobilinogen Normal (Normal)
[2020-06-30 10:03] LABS: Absolute Lymphocyte Count 0.44 X10^3/uL (0.83-4.51); Absolute Neutrophil Count 5.4 X10^3/uL (2.0-7.7); Basophil# 0.01 X10^3/uL; Basophil% 0.2 % (0-1); Eosinophil# 0.18 X10^3/uL; Eosinophils% 2.8 % (0-5); Hematocrit 32.3 % (37-47); Hemoglobin 9.7 g/dL (12.0-15.0); Lymphocyte # 0.44 X10^3/ul (4.0); Lymphocyte % 6.9 % (19-41); Mean Corpuscular Hgb 30.2 pg (27.0-32.0); Mean Corpuscular Volume 100.6 fL (81-99); Mean Platelet Vol. 12.7 fl (6.2-12.0); Monocyte# 0.41 X10^3/uL; Monocyte% 6.4 % (0-10); NRBC Flagged by Analyzer 0 % (0-5); Neutrophil # 5.35 X10^3/uL (2.7-7.7); Neutrophil % 83.2 % (47-70); POSITIVE COUNT YES; POSITIVE DIFFERENTIAL YES; POSITIVE MORPHOLOGY YES; RBC Distribution Width CV 14.6 % (11.6-14.6); RBC Distribution Width SD 54.1 fl (35.1-43.9); Red Blood Count 3.21 M/mm3 (4.2-5.4); White Blood Count 6.4 K/mm3 (4.4-11.0)
[2020-06-30 10:08] LABS: M R Staph aureus DNA By PCR Negative (Negative); Probe Check PASS; Specimen Processing Control PASS
[2020-06-30 10:08] LABS: Bacteria 3+ /hpf (None Seen); Red Blood Cells-Urine 0-5 SEEN /hpf (0-5); Squamous Epithelial Cells - UA 0-5 SEEN /hpf (5-10); White Blood Cells >100 SEEN /hpf (0-5)
--- NOTE | 2020-06-30 10:16 | CASEMGMT ---
RN CM Assessment Note: Unable to speak with patient currently for assessment. Mary MCCANNN RN ACM
[2020-06-30 10:26] LABS: Lactic Acid 1.3 mmol/L (0.4-1.9)
[2020-06-30 10:28] LABS: Differential Indicated SCAN CRITERIA MET
[2020-06-30 10:29] LABS: Platelet Estimate SLT DEC (ADEQ)
[2020-06-30 11:10] LABS: Reflex Lactate? Y
[2020-06-30 12:46] LABS: Bedside Glucose 124 mg/dL (70-110)
--- NOTE | 2020-06-30 14:43 | CASEMGMT ---
RN CM Assessment Note Intro role of CM to patient in room. COVID testing was negative and isolation discontinued. Patient is sitting in the chair and able to participate in assessment. Demographics, PCP, insurance verified. Patient states she lives independently at home with her . Patient states she is completes own ADL's, but does admit to difficulty with house cleaning. Denies using ambulatory DME or oxygen at home. Presentation: from [facility] with severe sepsis/UTI Diagnosis: sepsis, UTI PMH: CRF, hemodialysis, HTN, Melanoma, DM 2 PCP: Dr. Gabriela Dickens Specialists: [facility] in [place] Dialysis: hemodialysis MWF @ [facility] in [place] @ 6:15 am Insurance: [facility] Preferred Pharmacy: [facility] Prescription Benefit: yes LNOK: , Anders Bentley Living Arrangements: Lives independently in home with 6 steps into home, but has railing and pt states she does not have difficulty with stairs. No care needs identified by patient. Tranportation: drives to dialysis herself. DME: does not use ambulatory DME. states they have walker, cane, wheelchair @ home that her used in past, but not being used currently. HHC: None SNF: None Patient DC Goals: Home DC Plan: Home on discharge. Denies any needs at this time.Contact CM for any concerns/needs that may arise. Mary THOMPSON RN ACM
--- NOTE | 2020-06-30 15:00 | PCM.RX.CS ---
Consult Pharmacy has been consulted to manage selected antiobiotic: Vancomycin Type of Consult: New start Suspected Infection: Sepsis Labs: Sodium 139 mmol/L (136-145) 06/30/20 07:05 Potassium 3.7 mmol/L (3.5-5.1) 06/30/20 07:05 Chloride 108 mmol/L (98-107) H 06/30/20 07:05 Carbon Dioxide 16.0 mmol/L (21.0-32.0) L 06/30/20 07:05 Anion Gap 15 (5-15) 06/30/20 07:05 BUN 28 mg/dL (7-18) H 06/30/20 07:05 Creatinine 2.36 mg/dL (0.55-1.02) H 06/30/20 07:05 Est GFR (MDRD) Af Amer 25 mL/min (>60) L 06/30/20 07:05 Est GFR (MDRD) Non-Af 21 mL/min (>60) L 06/30/20 07:05 BUN/Creatinine Ratio 11.9 RATIO (10-20) 06/30/20 07:05 Glucose 72 mg/dL (74-106) L 06/30/20 07:05 Microbiology: Microbiology 06/30/20 06:55 Mucosa - Nasopharyngeal Respiratory Panel (PCR) - Final Goal Trough: 15-20 mcg/mL Pharmacy Plan for Drug Dosing: NEW START IV VANCOMYCIN Consulting Physician: AGUS Indication: SEPSIS/UTI Goal Trough: 15-20 MG/DL SrCr: 2.36 --> HD PT WITH M/W/F SCHEDULE CrCl: HD (15ML/MIN) Comments: OUTSIDE ED DOSE OF 1000MG GIVEN 06/30 @ 0105 Vancomycin Dose: 750MG X1 TO GIVE 07/01 AFTER HD Pharmacy Service will continue to monitor and adjust dosing as required. Labs to be done on [date and time ordered]: 07/03 @ 0600 (RANDOM)
--- NOTE | 2020-06-30 16:02 | PCM.CONS.R ---
Problem List (1) ESRD (end stage renal disease) on dialysis Status: Acute Consultation - Renal 06/30/20 PCP/ Referring MD: Requesting physician: [] Primary care physician: Dr. Gabriela Dickens MD Reason for Consultation:: ESRD - History of Present Illness History of Present Illness: The patient is a 80 year old F admitted to hospital with complaints of abdomen discomfort, nausea, vomitings, chills. renal consulted for ESRD. ESRD on HD MWF schedule. last HD was yesterday. access is left arm AVF. apparently HD yesterday was uneventful. admitted for sepsis. lactate was high, now better. gm positive cocci in blood as per prelim data from [facility]. - Allergies Allergies: Allergies No Known Allergies Allergy (Verified 06/30/20 06:11) - Current Medications Current Medications: Current Medications Acetaminophen (Tylenol) 650 mg PO Q6H PRN PRN PRN Reason: Pain Score 1-10/Temp > 100.7 F Al Hydroxide/Mg Hydroxide (Mylanta Ii) 30 ml PO Q6H PRN PRN PRN Reason: Gastric Burning Albuterol Sulfate (Ventolin Aerosols) 2.5 mg INHALATION Q2H PRN PRN PRN Reason: SOB/Wheezing Aspirin (Ecotrin) 81 mg PO DAILY [facility] Atorvastatin Calcium (Lipitor) 40 mg PO QHS [facility] Calcium Carbonate (Tums) 500 mg PO BIDCM [facility] Famotidine (Pepcid) 20 mg PO DAILY [facility] Guaifenesin (Robitussin) 10 ml PO Q4H PRN PRN PRN Reason: COUGH Heparin Sodium (Porcine) (Heparin Na) 5,000 unit SC Q12 [facility] Last Admin: 06/30/20 09:34 Dose: 5,000 unit Documented by: Sodium Chloride () 250 mls @ 15 mls/hr IV .[id number] PRN PRN Reason: Saline Flush Last Infusion: 06/30/20 09:31 Dose: 0 mls/hr Documented by: Sodium Chloride () 250 mls @ 15 mls/hr IV .[id number] PRN PRN Reason: Additional IVPB Infusion Sodium Chloride () 250 mls @ 15 mls/hr IV .[id number] PRN PRN Reason: Saline Flush Piperacillin Sod/Tazobactam (Sod 3.375 gm/ Sodium Chloride) 50 mls @ 12.5 mls/hr IV Q12 [facility] Last Infusion: 06/30/20 15:02 Dose: Infused Documented by: Vancomycin IV Pharmacy to Dose (1 ea/ Sodium Chloride) 500 mls @ 250 mls/hr IV X1 PRN; Protocol PRN Reason: Rx to Dose Vancomycin HCl 750 mg/ Sodium (Chloride) 265 mls @ 250 mls/hr IV X1 ONE Stop: 07/01/20 18:03 Insulin Human Lispro (Humalog Kwikpen (Bkc)) 0 unit SC ACHS [facility]; Protocol Last Admin: 06/30/20 13:23 Dose: Not Given Documented by: Melatonin (Melatonin) 3 mg PO QHS PRN PRN PRN Reason: INSOMNIA Ondansetron HCl (Zofran) 4 mg IV Q8H PRN PRN PRN Reason: NAUSEA/VOMITING Pregabalin (Lyrica) 100 mg PO QHS [facility] Promethazine HCl (Phenergan) 25 mg IM Q6H PRN PRN PRN Reason: Breakthrough Nausea/Vomiting Senna/Docusate Sodium (Senokot-S, Justa-Colace) 2 tablet PO BID PRN PRN Reason: Constipation Sodium Chloride () 10 - 40 ml IV UD PRN PRN Reason: SALINE FLUSH Sodium Chloride () 10 - 40 ml IV UD PRN PRN Reason: SALINE FLUSH - Past Medical History Past Medical History (Chronic Problems): Chronic Problems (Last Reviewed 06/30/20 @ 09:[address] 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 Continues to use salt as well Hypertension associated with chronic kidney disease due to type 2 diabetes mellitus (Chronic) BP remains elevated. 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 Diet and food choices remain an issue. Has not changed her eating habits and therefore BG readings have never stabilized. Pt has made choices which have continued to create high BG readings. She is now being prepped for upcoming dialysis. She is doing well with making insulin adjustments and making BG corrections. She is doing fairly well with exercise. Lymphedema of left lower extremity (Chronic) - Past Surgical History Surgical History: - - Lymph node resection L groin, otherwise noncontributory - Social History Smoking Status: Former smoker - Family History Maternal Family History: Family History (Last Reviewed 06/30/20 @ 09:[address] Tadeo Larsen MD) Mother Diabetes Heart disease Hypertension High cholesterol Seizures Father Diabetes Heart disease High cholesterol Hypertension Kidney disease CVA (cerebral vascular accident) Review of Systems Constitutional: Denies: Chills, Fever, Weight Change HEENT: Denies: Head Aches, Sinus Congestion, Sinus Drainage Cardiovascular: Denies: Chest Pain, Palpitations Respiratory: Denies: Cough, Shortness of breath at rest, Sputum production Gastrointestinal: Denies: Abdominal Pain, Nausea, Vomiting Genitourinary: Denies: Dysuria Musculoskeletal: Denies: Joint Pain, Joint Tenderness Skin: Denies: Rash, Wounds Neurological: Denies: Numbness, Tingling, Focal weakness Psychiatric: Denies: Anxiety, Depression, Homicidal Ideations, Suicidal Ideations Hematologic/ Lymphatic: Denies: Easy Bruising, Easy Bleeding Patient Problems: Active and Suspected Problems (Last Reviewed 06/30/20 @ 09:[address] Tadeo Larsen MD) Sepsis (Acute) UTI (urinary tract infection) (Acute) ESRD (end stage renal disease) on dialysis (Acute) - Physical Exam Vitals/I&O's: Vital Signs Temp Pulse Resp BP Pulse Ox 97.5 F L 80 21 H 134/57 H 100 06/30/20 12:00 06/30/20 15:00 06/30/20 15:00 06/30/20 15:00 06/30/20 15:00 Oxygen Flow Rate (L/min) 3 Oxygen Delivery Method Nasal Cannula Weight: 92.3 kg Body Mass Index (BMI) 36.0 Intake and Output for Last 24 Hours 06/28/20 06/29/20 06/30/20 23:59 23:59 23:59 Intake Total 2551.25 / 2551.25 Output Total 250 / 250 Balance 2301.25 / 2301.25 General: Alert, Oriented x3, Cooperative HEENT: Atraumatic, PERRLA, EOMI, Normocephalic Neck: Supple, No JVD, Negative Carotid Bruits Lungs: Clear to auscultation, Normal air movement Cardiovascular: Regular rate, No murmurs Abdomen: Bowel Sounds Present, Soft, Non Tender Extremities: No edema, Capillary Refill Less than 3 Seconds Skin: No rashes, No breakdown Musculoskeletal: No Tenderness to Palpation of Joints or Extremities Neurological: Cranial nerves II-XII grossly intact Psych/Mental Status: Normal Affect, Appropriate Microbiology Past 72 Hours 06/30/20 06:55 Mucosa - Nasopharyngeal Respiratory Panel (PCR) - Final Laboratory Results 06/30/20 06:48: COVID-19 (BRIAN) Not Detected 06/30/20 07:05: WBC 4.4, RBC 2.12 L, Hgb 6.7 L, Hct 22.1 L, MCV 104.2 H, MCH 31.6, MCHC 30.3 L, RDW Std Deviation 54.6 H, RDW Coeff of Rohan 14.6, Plt Count , MPV 12.1 H, Immature Gran % (Auto) 0.900, Neut % (Auto) 84.0 H, Lymph % (Auto) 5.5 L, Z[place]ala % (Auto) 7.1, Eos % (Auto) 2.5, Baso % (Auto) 0.0, Absolute Neuts (auto) 3.7, Absolute Lymphs (auto) 0.24 L, Total Counted [employer], Neutrophils % (Manual) 82 H, Lymphocytes % (Manual) 12 L, Monocytes % (Manual) 6, Nucleated RBC % 0, Differential Comment MANUAL DIFF, Platelet Estimate ADEQUATE, Plt Morphology Comment LARGE, RBC Morphology NORM C+C, Hypochromasia 1+ 06/30/20 07:05: Sodium 139, Potassium 3.7, Chloride 108 H, Carbon Dioxide 16.0 L, Anion Gap 15, BUN 28 H, Creatinine 2.36 H, Estim Creat Clear Calc 15.20, Est GFR (MDRD) Af Amer 25 L, Est GFR (MDRD) Non-Af 21 L, BUN/Creatinine Ratio 11.9, Glucose 72 L, Calcium 6.7 L, Total Bilirubin 0.30, AST 26, ALT 18, Alkaline Phosphatase 32 L, Total Protein 3.2 L, Albumin 1.4 L, Globulin 1.8 L, Albumin/Globulin Ratio 0.8 L 06/30/20 07:05: Lactic Acid 11.3 H* 06/30/20 08:10: MRSA (PCR) Negative 06/30/20 09:40: Lactic Acid 1.3 06/30/20 09:40: Urine Color Straw, Urine Clarity Sl. Cloudy, Urine pH 5.0, Ur Specific Basye 1.015, Urine Protein 100 H, Urine Glucose (UA) Normal, Urine Ketones Negative, Urine Occult Blood 50 H, Urine Nitrite Negative, Urine Bilirubin Negative, Urine Urobilinogen Normal, Ur Leukocyte Esterase 500 H, Urine RBC 0-5 SEEN, Urine WBC >100 SEEN, Ur Squamous Epith Cells 0-5 SEEN, Urine Bacteria 3+, Urine Mucus 0 SEEN 06/30/20 09:40: WBC 6.4, RBC 3.21 L, Hgb 9.7 L, Hct 32.3 L, MCV 100.6 H, MCH 30.2, MCHC 30.0 L, RDW Std Deviation 54.1 H, RDW Coeff of Rohan 14.6, Plt Count , MPV 12.7 H, Immature Gran % (Auto) 0.500, Neut % (Auto) 83.2 H, Lymph % (Auto) 6.9 L, Zavala % (Auto) 6.4, Eos % (Auto) 2.8, Baso % (Auto) 0.2, Absolute Neuts (auto) 5.4, Absolute Lymphs (auto) 0.44 L, Nucleated RBC % 0, Differential Comment Not Reportable, Platelet Estimate SLT 06/30/20 12:42: POC Glucose 124 H Current Medications Acetaminophen (Tylenol) 650 mg PO Q6H PRN PRN PRN Reason: Pain Score 1-10/Temp > 100.7 F Al Hydroxide/Mg Hydroxide (Mylanta Ii) 30 ml PO Q6H PRN PRN PRN Reason: Gastric Burning Albuterol Sulfate (Ventolin Aerosols) 2.5 mg INHALATION Q2H PRN PRN PRN Reason: SOB/Wheezing Aspirin (Ecotrin) 81 mg PO DAILY [facility] Atorvastatin Calcium (Lipitor) 40 mg PO QHS [facility] Calcium Carbonate (Tums) 500 mg PO BIDCM [facility] Famotidine (Pepcid) 20 mg PO DAILY [facility] Guaifenesin (Robitussin) 10 ml PO Q4H PRN PRN PRN Reason: COUGH Heparin Sodium (Porcine) (Heparin Na) 5,000 unit SC Q12 [facility] Last Admin: 06/30/20 09:34 Dose: 5,000 unit Documented by: Sodium Chloride () 250 mls @ 15 mls/hr IV .[id number] PRN PRN Reason: Saline Flush Last Infusion: 06/30/20 09:31 Dose: 0 mls/hr Documented by: Sodium Chloride () 250 mls @ 15 mls/hr IV .[id number] PRN PRN Reason: Additional IVPB Infusion Sodium Chloride () 250 mls @ 15 mls/hr IV .[id number] PRN PRN Reason: Saline Flush Piperacillin Sod/Tazobactam (Sod 3.375 gm/ Sodium Chloride) 50 mls @ 12.5 mls/hr IV Q12 [facility] Last Infusion: 06/30/20 15:02 Dose: Infused Documented by: Vancomycin IV Pharmacy to Dose (1 ea/ Sodium Chloride) 500 mls @ 250 mls/hr IV X1 PRN; Protocol PRN Reason: Rx to Dose Vancomycin HCl 750 mg/ Sodium (Chloride) 265 mls @ 250 mls/hr IV X1 ONE Stop: 07/01/20 18:03 Insulin Human Lispro (Humalog Kwikpen (Bkc)) 0 unit SC ACHS [facility]; Protocol Last Admin: 06/30/20 13:23 Dose: Not Given Documented by: Melatonin (Melatonin) 3 mg PO QHS PRN PRN PRN Reason: INSOMNIA Ondansetron HCl (Zofran) 4 mg IV Q8H PRN PRN PRN Reason: NAUSEA/VOMITING Pregabalin (Lyrica) 100 mg PO QHS [facility] Promethazine HCl (Phenergan) 25 mg IM Q6H PRN PRN PRN Reason: Breakthrough Nausea/Vomiting Senna/Docusate Sodium (Senokot-S, Justa-Colace) 2 tablet PO BID PRN PRN Reason: Constipation Sodium Chloride () 10 - 40 ml IV UD PRN PRN Reason: SALINE FLUSH Sodium Chloride () 10 - 40 ml IV UD PRN PRN Reason: SALINE FLUSH Assessment/Plan All Active Problems (Last Reviewed 01/24/20 @ 13:23 by Jolene Juan) Sepsis (Acute) UTI (urinary tract infection) (Acute) ESRD (end stage renal disease) on dialysis (Acute) melanoma removal (Acute) ESRD. HD tomorrow as per schedule anemia. JUSTIN with HD Bacteremia. Gm positive cocci in clusters as per staff. received vanco. no catheters, hardware.
[2020-06-30] MEDS: Calcium Carbonate 500 MG Tablet PO (16:39)
[2020-06-30] MEDS: Aspirin E.C. 81 MG Tablet PO (16:40)
[2020-06-30 16:56] LABS: Bedside Glucose 206 mg/dL (70-110)
[2020-06-30] MEDS: Insulin Lispro 100 UNIT/ML INSULN.PEN SC ×2 (16:56→21:47)
[2020-06-30] MEDS: Atorvastatin Calcium 40 MG Tablet PO (21:39)
[2020-06-30] MEDS: Pregabalin 50 MG Capsule 100 MG PO (21:47)
[2020-06-30 22:11] LABS: Bedside Glucose 235 mg/dL (70-110)
[2020-07-01] VITALS (13 sets, daily range): BP systolic 110–181; BP diastolic 43–84; PULSE 74–99; RESP 18–20; TEMP 36.6–37.8; O2SAT 92–96
[2020-07-01 05:53] LABS: Absolute Lymphocyte Count 0.58 X10^3/uL (0.83-4.51); Basophil# 0.01 X10^3/uL; Basophil% 0.2 % (0-1); Eosinophil# 0.01 X10^3/uL; Eosinophils% 0.2 % (0-5); Hematocrit 31.1 % (37-47); Hemoglobin 9.4 g/dL (12.0-15.0); Lymphocyte # 0.58 X10^3/ul (4.0); Lymphocyte % 9.3 % (19-41); Mean Corp Hgb Conc 30.2 g/dL (32-36); Mean Corpuscular Hgb 30.8 pg (27.0-32.0); Mean Platelet Vol. 12.2 fl (6.2-12.0); Monocyte# 0.44 X10^3/uL; NRBC Flagged by Analyzer 0 % (0-5); Neutrophil # 5.04 X10^3/uL (2.7-7.7); Neutrophil % 80.3 % (47-70); POSITIVE COUNT YES; POSITIVE DIFFERENTIAL YES; POSITIVE MORPHOLOGY YES; RBC Distribution Width CV 14.8 % (11.6-14.6); RBC Distribution Width SD 55.9 fl (35.1-43.9); Red Blood Count 3.05 M/mm3 (4.2-5.4); White Blood Count 6.3 K/mm3 (4.4-11.0)
[2020-07-01 05:56] LABS: Differential Indicated SCAN CRITERIA MET
[2020-07-01] MEDS: Acetaminophen 325 MG Tablet 650 MG PO (05:59)
[2020-07-01 06:30] LABS: Differential Comment SCANNED; Platelet Estimate ADEQUATE (ADEQ)
[2020-07-01] MEDS: Insulin Lispro 100 UNIT/ML INSULN.PEN SC ×3 (06:54→21:32)
[2020-07-01 06:55] LABS: Bedside Glucose 217 mg/dL (70-110)
[2020-07-01 06:55] LABS: ALB/GLOB Ratio 0.7 RATIO (0.9-2.4); AST(SGOT) 43 U/L (15-37); Alanine Aminotransfer ALT/SGPT 40 U/L (13-56); Albumin, Serum 2.4 g/dL (3.2-5.0); Alkaline Phosphatase 35 U/L (45-117); Anion Gap 10 (5-15); BUN 55 mg/dL (7-18); BUN/Creat Ratio 10.9 RATIO (10-20); Calcium,Total 7.3 mg/dL (8.5-10.1); Chloride 108 mmol/L (98-107); Creatinine, Serum 5.03 mg/dL (0.55-1.02); EST Glomerular Filtration Rate 9 mL/min (>60); Est Glom Filt Rate - Afr Amer 11 mL/min (>60); Estimated Creatinine Clearance 7.13 ml/min; Globulin 3.4 g/dL (2.2-4.2); Glucose 202 mg/dL (74-106); Phosphorus 4.5 mg/dL (2.5-4.9); Potassium 4.3 mmol/L (3.5-5.1); Protein, Total 5.8 g/dL (6.4-8.2); Sodium Level 140 mmol/L (136-145)
[2020-07-01] MEDS: Heparin Injection (Vial) 5,000 UNIT/ML VIAL 5000 UNIT SC ×2 (09:34→21:32)
[2020-07-01] MEDS: Famotidine 20 MG Tablet PO (09:34)
[2020-07-01] MEDS: Aspirin E.C. 81 MG Tablet PO (09:34)
[2020-07-01] MEDS: 0.9% Saline Lock 10 ML Syringe IV ×2 (09:35→21:31)
--- NOTE | 2020-07-01 10:44 | PCM.PN.REN ---
Patient Problems: Active and Suspected Problems (Last Reviewed 06/30/20 @ 09:[address] Tadeo Larsen MD) Sepsis (Acute) UTI (urinary tract infection) (Acute) ESRD (end stage renal disease) on dialysis (Acute) Subjective: no new complaints - Physical Exam Vitals/I&O's: Vital Signs Temp Pulse Resp BP Pulse Ox 98.0 F 79 18 110/73 94 07/01/20 09:29 07/01/20 09:29 07/01/20 09:29 07/01/20 09:29 07/01/20 09:38 Oxygen Flow Rate (L/min) 2 Oxygen Delivery Method Room Air Weight: 94.6 kg Body Mass Index (BMI) 36.0 Intake and Output for Last 24 Hours 06/29/20 06/30/20 07/01/20 23:59 23:59 23:59 Intake Total 2559.00 / 2559.00 532.75 / 532.75 Output Total 450 / 450 1050 / 1050 Balance 2109.00 / 2109.00 -517.25 / -517.25 General: Alert, Oriented x3, Cooperative HEENT: Atraumatic, PERRLA, EOMI, Normocephalic Neck: Supple, No JVD, Negative Carotid Bruits Lungs: Clear to auscultation, Normal air movement Cardiovascular: Regular rate, No murmurs Abdomen: Bowel Sounds Present, Soft, Non Tender Extremities: No edema, Capillary Refill Less than 3 Seconds Skin: No rashes, No breakdown Musculoskeletal: No Tenderness to Palpation of Joints or Extremities Neurological: Cranial nerves II-XII grossly intact Psych/Mental Status: Normal Affect, Appropriate Microbiology Past 72 Hours 06/30/20 06:55 Mucosa - Nasopharyngeal Respiratory Panel (PCR) - Final Laboratory Results 06/30/20 12:42: POC Glucose 124 H 06/30/20 16:48: POC Glucose 206 H 06/30/20 21:46: POC Glucose 235 H 07/01/20 05:14: WBC 6.3, RBC 3.05 L, Hgb 9.4 L, Hct 31.1 L, MCV 102.0 H, MCH 30.8, MCHC 30.2 L, RDW Std Deviation 55.9 H, RDW Coeff of Rohan 14.8 H, Plt Count Not Reportable, MPV 12.2 H, Immature Gran % (Auto) 3.000 H, Neut % (Auto) 80.3 H, Lymph % (Auto) 9.3 L, [place] % (Auto) 7.0, Eos % (Auto) 0.2, Baso % (Auto) 0.2, Absolute Neuts (auto) 5.0, Absolute Lymphs (auto) 0.58 L, Nucleated RBC % 0, Differential Comment SCANNED, Platelet Estimate ADEQUATE 07/01/20 05:14: Sodium 140, Potassium 4.3, Chloride 108 H, Carbon Dioxide 22.0, Anion Gap 10, BUN 55 H, Creatinine 5.03 H, Estim Creat Clear Calc 7.13, Est GFR (MDRD) Af Amer 11 L, Est GFR (MDRD) Non-Af 9 L, BUN/Creatinine Ratio 10.9, Glucose 202 H, Calcium 7.3 L, Phosphorus 4.5, Total Bilirubin 0.50, AST 43 H, ALT 40, Alkaline Phosphatase 35 L, Total Protein 5.8 L, Albumin 2.4 L, Globulin 3.4, Albumin/Globulin Ratio 0.7 L 07/01/20 06:44: POC Glucose 217 H Current Medications Acetaminophen (Tylenol) 650 mg PO Q6H PRN PRN PRN Reason: Pain Score 1-10/Temp > 100.7 F Last Admin: 07/01/20 05:59 Dose: 650 mg Documented by: Al Hydroxide/Mg Hydroxide (Mylanta Ii) 30 ml PO Q6H PRN PRN PRN Reason: Gastric Burning Albuterol Sulfate (Ventolin Aerosols) 2.5 mg INHALATION Q2H PRN PRN PRN Reason: SOB/Wheezing Aspirin (Ecotrin) 81 mg PO DAILY [facility] Last Admin: 07/01/20 09:34 Dose: 81 mg Documented by: Atorvastatin Calcium (Lipitor) 40 mg PO QHS [facility] Last Admin: 06/30/20 21:39 Dose: 40 mg Documented by[facility] Last Admin: 07/01/20 09:35 Dose: Not Given Documented by: Famotidine (Pepcid) 20 mg PO DAILY [facility] Last Admin: 07/01/20 09:34 Dose: 20 mg Documented by: Guaifenesin (Robitussin) 10 ml PO Q4H PRN PRN PRN Reason: COUGH Heparin Sodium (Porcine) (Heparin Na) 5,000 unit SC Q12 [facility] Last Admin: 07/01/20 09:34 Dose: 5,000 unit Documented by: Sodium Chloride () 250 mls @ 15 mls/hr IV .[id number] PRN PRN Reason: Saline Flush Last Infusion: 07/01/20 08:14 Dose: 0 mls/hr Documented by: Sodium Chloride () 250 mls @ 15 mls/hr IV .[id number] PRN PRN Reason: Additional IVPB Infusion Sodium Chloride () 250 mls @ 15 mls/hr IV .[id number] PRN PRN Reason: Saline Flush Piperacillin Sod/Tazobactam (Sod 3.375 gm/ Sodium Chloride) 50 mls @ 12.5 mls/hr IV Q12 [facility] Last Admin: 07/01/20 09:34 Dose: 12.5 mls/hr Documented by: Vancomycin IV Pharmacy to Dose (1 ea/ Sodium Chloride) 500 mls @ 250 mls/hr IV X1 PRN; Protocol PRN Reason: Rx to Dose Vancomycin HCl 750 mg/ Sodium (Chloride) 265 mls @ 250 mls/hr IV X1 ONE Stop: 07/01/20 18:03 Insulin Human Lispro (Humalog Kwikpen (Bkc)) 0 unit SC ACHS [facility]; Protocol Last Admin: 07/01/20 06:54 Dose: 2 u Documented by: Melatonin (Melatonin) 3 mg PO QHS PRN PRN PRN Reason: INSOMNIA Ondansetron HCl (Zofran) 4 mg IV Q8H PRN PRN PRN Reason: NAUSEA/VOMITING Pregabalin (Lyrica) 100 mg PO QHS [facility] Last Admin: 06/30/20 21:47 Dose: 100 mg Documented by: Promethazine HCl (Phenergan) 25 mg IM Q6H PRN PRN PRN Reason: Breakthrough Nausea/Vomiting Senna/Docusate Sodium (Senokot-S, Justa-Colace) 2 tablet PO BID PRN PRN Reason: Constipation Sodium Chloride () 10 - 40 ml IV UD PRN PRN Reason: SALINE FLUSH Last Admin: 07/01/20 09:35 Dose: 10 ml Documented by: Sodium Chloride () 10 - 40 ml IV UD PRN PRN Reason: SALINE FLUSH Medical Necessity - Tobacco Use Smoking Status: Former smoker Assessment/Plan All Active Problems (Last Reviewed 01/24/20 @ 13:23 by Jolene Juan) Sepsis (Acute) UTI (urinary tract infection) (Acute) ESRD (end stage renal disease) on dialysis (Acute) melanoma removal (Acute) ESRD. HD today anemia. JUSTIN with HD Bacteremia. Gm positive cocci in clusters as per staff. received vanco. no catheters, hardware.
[2020-07-01 11:25] LABS: Bedside Glucose 283 mg/dL (70-110)
--- NOTE | 2020-07-01 14:10 | PN_ITS ---
Patient Problems: Active and Suspected Problems (Last Reviewed 06/30/20 @ 09:[address] Tadeo Larsen MD) Sepsis (Acute) UTI (urinary tract infection) (Acute) ESRD (end stage renal disease) on dialysis (Acute) Subjective: The patient was seen and examined at the bedside this morning. Events from the last 24 hours have been reviewed. The patient is currently afebrile, hemodynamically stable and maintaining appropriate oxygen saturations on room air. The patient has remained clinically stable following transfer out of the intensive care unit last evening. Objective: The patient's most recent lab work, culture data and imaging studies have all been personally reviewed. Urine culture revealed presumptive E. coli. Blood cultures are still pending. - Physical Exam Vitals/I&O's: Vital Signs Temp Pulse Resp BP Pulse Ox 98.0 F 79 18 110/73 94 07/01/20 09:29 07/01/20 09:29 07/01/20 09:29 07/01/20 09:29 07/01/20 09:38 Oxygen Flow Rate (L/min) 2 Oxygen Delivery Method Room Air Weight: 208 lb 8.917 oz Body Mass Index (BMI) 36.0 Intake and Output for Last 24 Hours 06/29/20 06/30/20 07/01/20 23:59 23:59 23:59 Intake Total 2559.00 / 2559.00 582.75 / 582.75 Output Total 450 / 450 1050 / 1050 Balance 2109.00 / 2109.00 -467.25 / -467.25 General: Alert, Cooperative, No apparent distress HEENT: Atraumatic, Normocephalic Oral: Moist Mucosa, No Gingival or Mucosal Lesions/ Ulcerations Neck: Supple, No Nodes, Trachea Midline Lungs: Diminished Cardiovascular: Regular rate, Regular Rhythm Abdomen: Bowel Sounds Present, Soft, Non Tender, Obese Extremities: No clubbing, No cyanosis, No edema Skin: No breakdown Musculoskeletal: No Tenderness to Palpation of Joints or Extremities Lymphatic: No Cervical, Supraclavicular, or Inguinal Adenopathy Neurological: Cranial nerves II-XII grossly intact, Neuro grossly intact Psych/Mental Status: Normal Affect, Appropriate Labs (Last 48 Hours) 06/30/20 06/30/20 06/30/20 06:48 07:05 07:05 WBC 4.4 RBC 2.12 L Hgb 6.7 L Hct 22.1 L MCV 104.2 H MCH 31.6 MCHC 30.3 L RDW Std Deviation 54.6 H RDW Coeff of Rohan 14.6 Plt Count MPV 12.1 H Immature Gran % (Auto) 0.900 Neut % (Auto) 84.0 H Lymph % (Auto) 5.5 L [place] % (Auto) 7.1 Eos % (Auto) 2.5 Baso % (Auto) 0.0 Absolute Neuts (auto) 3.7 Absolute Lymphs (auto) 0.24 L Total Counted [employer] Neutrophils % (Manual) 82 H Lymphocytes % (Manual) 12 L Monocytes % (Manual) 6 Nucleated RBC % 0 Differential Comment MANUAL DIFF Platelet Estimate ADEQUATE Plt Morphology Comment LARGE RBC Morphology NORM C+C Hypochromasia 1+ Sodium 139 Potassium 3.7 Chloride 108 H Carbon Dioxide 16.0 L Anion Gap 15 BUN 28 H Creatinine 2.36 H Estim Creat Clear Calc 15.20 Est GFR (MDRD) Af Amer 25 L Est GFR (MDRD) Non-Af 21 L BUN/Creatinine Ratio 11.9 Glucose 72 L Lactic Acid Calcium 6.7 L Phosphorus Total Bilirubin 0.30 AST 26 ALT 18 Alkaline Phosphatase 32 L Total Protein 3.2 L Albumin 1.4 L Globulin 1.8 L Albumin/Globulin Ratio 0.8 L Urine Color Urine Clarity Urine pH Ur Specific [place] Urine Protein Urine Glucose (UA) Urine Ketones Urine Occult Blood Urine Nitrite Urine Bilirubin Urine Urobilinogen Ur Leukocyte Esterase Urine RBC Urine WBC Ur Squamous Epith Cells Urine Bacteria Urine Mucus COVID-19 (BRIAN) Not Detected MRSA (PCR) POC Glucose 06/30/20 06/30/20 06/30/20 07:05 08:10 09:40 WBC RBC Hgb Hct MCV MCH MCHC RDW Std Deviation RDW Coeff of Rohan Plt Count MPV Immature Gran % (Auto) Neut % (Auto) Lymph % (Auto) [place] % (Auto) Eos % (Auto) Baso % (Auto) Absolute Neuts (auto) Absolute Lymphs (auto) Total Counted Neutrophils % (Manual) Lymphocytes % (Manual) Monocytes % (Manual) Nucleated RBC % Differential Comment Platelet Estimate Plt Morphology Comment RBC Morphology Hypochromasia Sodium Potassium Chloride Carbon Dioxide Anion Gap BUN Creatinine Estim Creat Clear Calc Est GFR (MDRD) Af Amer Est GFR (MDRD) Non-Af BUN/Creatinine Ratio Glucose Lactic Acid 11.3 H* 1.3 Calcium Phosphorus Total Bilirubin AST ALT Alkaline Phosphatase Total Protein Albumin Globulin Albumin/Globulin Ratio Urine Color Urine Clarity Urine pH Ur Specific [place] Urine Protein Urine Glucose (UA) Urine Ketones Urine Occult Blood Urine Nitrite Urine Bilirubin Urine Urobilinogen Ur Leukocyte Esterase Urine RBC Urine WBC Ur Squamous Epith Cells Urine Bacteria Urine Mucus COVID-19 (BRIAN) MRSA (PCR) Negative POC Glucose 06/30/20 06/30/20 06/30/20 09:40 09:40 12:42 WBC 6.4 RBC 3.21 L Hgb 9.7 L Hct 32.3 L MCV 100.6 H MCH 30.2 MCHC 30.0 L RDW Std Deviation 54.1 H RDW Coeff of Rohan 14.6 Plt Count MPV 12.7 H Immature Gran % (Auto) 0.500 Neut % (Auto) 83.2 H Lymph % (Auto) 6.9 L [place] % (Auto) 6.4 Eos % (Auto) 2.8 Baso % (Auto) 0.2 Absolute Neuts (auto) 5.4 Absolute Lymphs (auto) 0.44 L Total Counted Neutrophils % (Manual) Lymphocytes % (Manual) Monocytes % (Manual) Nucleated RBC % 0 Differential Comment Not Reportable Platelet Estimate SLT DEC Plt Morphology Comment RBC Morphology Hypochromasia Sodium Potassium Chloride Carbon Dioxide Anion Gap BUN Creatinine Estim Creat Clear Calc Est GFR (MDRD) Af Amer Est GFR (MDRD) Non-Af BUN/Creatinine Ratio Glucose Lactic Acid Calcium Phosphorus Total Bilirubin AST ALT Alkaline Phosphatase Total Protein Albumin Globulin Albumin/Globulin Ratio Urine Color Straw Urine Clarity Sl. Cloudy Urine pH 5.0 Ur Specific [place] 1.015 Urine Protein 100 H Urine Glucose (UA) Normal Urine Ketones Negative Urine Occult Blood 50 H Urine Nitrite Negative Urine Bilirubin Negative Urine Urobilinogen Normal Ur Leukocyte Esterase 500 H Urine RBC 0-5 SEEN Urine WBC >100 SEEN Ur Squamous Epith Cells 0-5 SEEN Urine Bacteria 3+ Urine Mucus 0 SEEN COVID-19 (BRIAN) MRSA (PCR) POC Glucose 124 H 06/30/20 06/30/20 07/01/20 16:48 21:46 05:14 WBC 6.3 RBC 3.05 L Hgb 9.4 L Hct 31.1 L MCV 102.0 H MCH 30.8 MCHC 30.2 L RDW Std Deviation 55.9 H RDW Coeff of Rohan 14.8 H Plt Count Not Reportable MPV 12.2 H Immature Gran % (Auto) 3.000 H Neut % (Auto) 80.3 H Lymph % (Auto) 9.3 L [place] % (Auto) 7.0 Eos % (Auto) 0.2 Baso % (Auto) 0.2 Absolute Neuts (auto) 5.0 Absolute Lymphs (auto) 0.58 L Total Counted Neutrophils % (Manual) Lymphocytes % (Manual) Monocytes % (Manual) Nucleated RBC % 0 Differential Comment SCANNED Platelet Estimate ADEQUATE Plt Morphology Comment RBC Morphology Hypochromasia Sodium Potassium Chloride Carbon Dioxide Anion Gap BUN Creatinine Estim Creat Clear Calc Est GFR (MDRD) Af Amer Est GFR (MDRD) Non-Af BUN/Creatinine Ratio Glucose Lactic Acid Calcium Phosphorus Total Bilirubin AST ALT Alkaline Phosphatase Total Protein Albumin Globulin Albumin/Globulin Ratio Urine Color Urine Clarity Urine pH Ur Specific [place] Urine Protein Urine Glucose (UA) Urine Ketones Urine Occult Blood Urine Nitrite Urine Bilirubin Urine Urobilinogen Ur Leukocyte Esterase Urine RBC Urine WBC Ur Squamous Epith Cells Urine Bacteria Urine Mucus COVID-19 (BRIAN) MRSA (PCR) POC Glucose 206 H 235 H 07/01/20 07/01/20 07/01/20 05:14 06:44 11:19 WBC RBC Hgb Hct MCV MCH MCHC RDW Std Deviation RDW Coeff of Rohan Plt Count MPV Immature Gran % (Auto) Neut % (Auto) Lymph % (Auto) [place] % (Auto) Eos % (Auto) Baso % (Auto) Absolute Neuts (auto) Absolute Lymphs (auto) Total Counted Neutrophils % (Manual) Lymphocytes % (Manual) Monocytes % (Manual) Nucleated RBC % Differential Comment Platelet Estimate Plt Morphology Comment RBC Morphology Hypochromasia Sodium 140 Potassium 4.3 Chloride 108 H Carbon Dioxide 22.0 Anion Gap 10 BUN 55 H Creatinine 5.03 H Estim Creat Clear Calc 7.13 Est GFR (MDRD) Af Amer 11 L Est GFR (MDRD) Non-Af 9 L BUN/Creatinine Ratio 10.9 Glucose 202 H Lactic Acid Calcium 7.3 L Phosphorus 4.5 Total Bilirubin 0.50 AST 43 H ALT 40 Alkaline Phosphatase 35 L Total Protein 5.8 L Albumin 2.4 L Globulin 3.4 Albumin/Globulin Ratio 0.7 L Urine Color Urine Clarity Urine pH Ur Specific [place] Urine Protein Urine Glucose (UA) Urine Ketones Urine Occult Blood Urine Nitrite Urine Bilirubin Urine Urobilinogen Ur Leukocyte Esterase Urine RBC Urine WBC Ur Squamous Epith Cells Urine Bacteria Urine Mucus COVID-19 (BRIAN) MRSA (PCR) POC Glucose 217 H 283 H Microbiology 06/30/20 08:35 Urine Catheter - Catheter Urine Culture - Preliminary Presumptive E. coli 06/30/20 06:55 Mucosa - Nasopharyngeal Respiratory Panel (PCR) - Final Clinical Impression(s) from Imaging Studies Chest X-Ray 06/30/20 06:50 IMPRESSION: Minimal degree of increased linear markings at the lung bases suggestive of bibasilar atelectasis. Electronically Signed: Gal Jenningslove, at 9:49 EDT , Service support , Current Medications Acetaminophen (Tylenol) 650 mg PO Q6H PRN PRN PRN Reason: Pain Score 1-10/Temp > 100.7 F Last Admin: 07/01/20 05:59 Dose: 650 mg Documented by: Al Hydroxide/Mg Hydroxide (Mylanta Ii) 30 ml PO Q6H PRN PRN PRN Reason: Gastric Burning Albuterol Sulfate (Ventolin Aerosols) 2.5 mg INHALATION Q2H PRN PRN PRN Reason: SOB/Wheezing Aspirin (Ecotrin) 81 mg PO DAILY [facility] Last Admin: 07/01/20 09:34 Dose: 81 mg Documented by: Atorvastatin Calcium (Lipitor) 40 mg PO QHS [facility] Last Admin: 06/30/20 21:39 Dose: 40 mg Documented by: Calcium Carbonate (Tums) 500 mg PO BIDCM [facility] Last Admin: 07/01/20 09:35 Dose: Not Given Documented by: Famotidine (Pepcid) 20 mg PO DAILY [facility] Last Admin: 07/01/20 09:34 Dose: 20 mg Documented by: Guaifenesin (Robitussin) 10 ml PO Q4H PRN PRN PRN Reason: COUGH Heparin Sodium (Porcine) (Heparin Na) 5,000 unit SC Q12 [facility] Last Admin: 07/01/20 09:34 Dose: 5,000 unit Documented by: Sodium Chloride () 250 mls @ 15 mls/hr IV .[id number] PRN PRN Reason: Saline Flush Last Infusion: 07/01/20 08:14 Dose: 0 mls/hr Documented by: Sodium Chloride () 250 mls @ 15 mls/hr IV .[id number] PRN PRN Reason: Additional IVPB Infusion Sodium Chloride () 250 mls @ 15 mls/hr IV .[id number] PRN PRN Reason: Saline Flush Piperacillin Sod/Tazobactam (Sod 3.375 gm/ Sodium Chloride) 50 mls @ 12.5 mls/hr IV Q12 [facility] Last Infusion: 07/01/20 13:34 Dose: Infused Documented by: Vancomycin IV Pharmacy to Dose (1 ea/ Sodium Chloride) 500 mls @ 250 mls/hr IV X1 PRN; Protocol PRN Reason: Rx to Dose Vancomycin HCl 750 mg/ Sodium (Chloride) 265 mls @ 250 mls/hr IV X1 ONE Stop: 07/01/20 18:03 Insulin Human Lispro (Humalog Kwikpen (Bkc)) 0 unit SC [facility]; Protocol Last Admin: 07/01/20 11:21 Dose: 4 u Documented by: Melatonin (Melatonin) 3 mg PO QHS PRN PRN PRN Reason: INSOMNIA Ondansetron HCl (Zofran) 4 mg IV Q8H PRN PRN PRN Reason: NAUSEA/VOMITING Pregabalin (Lyrica) 100 mg PO QHS [facility] Last Admin: 06/30/20 21:47 Dose: 100 mg Documented by: Promethazine HCl (Phenergan) 25 mg IM Q6H PRN PRN PRN Reason: Breakthrough Nausea/Vomiting Senna/Docusate Sodium (Senokot-S, Justa-Colace) 2 tablet PO BID PRN PRN Reason: Constipation Sodium Chloride () 10 - 40 ml IV UD PRN PRN Reason: SALINE FLUSH Last Admin: 07/01/20 09:35 Dose: 10 ml Documented by: Sodium Chloride () 10 - 40 ml IV UD PRN PRN Reason: SALINE FLUSH Medical Necessity - Tobacco Use Smoking Status: Former smoker Assessment/Plan All Active Problems (Last Reviewed 01/24/20 @ 13:23 by Jolene Juan) Sepsis (Acute) UTI (urinary tract infection) (Acute) ESRD (end stage renal disease) on dialysis (Acute) melanoma removal (Acute) RECOMMENDATIONS: 1. Antimicrobial de-escalation once sensitivities are resulted. Okay to discontinue vancomycin from my perspective. 2. Hemodialysis support per nephrology recommendations. 3. Encourage incentive spirometer use while in bed and mobilize patient as tolerated. 4. As the patient has no further ICU or pulmonary needs, will sign off. Please call with any additional questions. IMPRESSIONS: 1. Severe sepsis Most likely secondary to urinary tract source of infection. Although initially hypotensive on presentation to the hospital, the patient did respond favorably to volume expansion. She never required vasopressor support. She remains hemodynamically stable. Preliminary urine culture was positive for E. coli. Antibiotics can be de-escalated accordingly. 2. End-stage renal disease on hemodialysis Nephrology following to assist with hemodialysis needs. 3. History of hypertension/hyperlipidemia/diabetes mellitus Complicates care, management, recovery and prognosis. Home medications can be restarted from my perspective. This note was generated with [employer] dictation software. It may contain incorrect words, spelling, and punctuation that were not noted in checking the note before signing. Inpatient E&M: 60004 Subs Hosp L2
--- NOTE | 2020-07-01 14:35 | PCM.PN.HOSP ---
Patient Problems: Active and Suspected Problems (Last Reviewed 06/30/20 @ 09:[address] Tadeo Larsen MD) Sepsis (Acute) UTI (urinary tract infection) (Acute) ESRD (end stage renal disease) on dialysis (Acute) Subjective: Pt states that she is feeling so much better since she came in. On RA. at bedside and inquiring about d/c to arrange for HD on Monday. Vitals/I&O's: Vital Signs Temp Pulse Resp BP Pulse Ox 98.0 F 79 18 110/73 94 07/01/20 09:29 07/01/20 09:29 07/01/20 09:29 07/01/20 09:29 07/01/20 09:38 Oxygen Flow Rate (L/min) 2 Oxygen Delivery Method Room Air Weight: 94.6 kg Body Mass Index (BMI) 36.0 Intake and Output for Last 24 Hours 06/29/20 06/30/20 07/01/20 23:59 23:59 23:59 Intake Total 2559.00 / 2559.00 582.75 / 582.75 Output Total 450 / 450 1050 / 1050 Balance 2109.00 / 2109.00 -467.25 / -467.25 General: Alert, Oriented x3, Cooperative, No apparent distress, Well developed, Well nourished HEENT: Atraumatic, PERRLA, EOMI, Normocephalic, TM's Clear Oral: Moist Mucosa, No Gingival or Mucosal Lesions/ Ulcerations, - - Mallampati 3 Neck: Supple, No JVD, No Nodes, No Nuchal Rigidity, Trachea Midline, Thyroid Normal Size and Texture Lungs: Clear to auscultation, Normal air movement, No rhonchi, No wheeze, No rales Cardiovascular: Regular rate, Regular Rhythm, Normal S1, Normal S2, No murmurs, No Ectopic Activity, No rub noted, No Gallop Abdomen: Bowel Sounds Present, Soft, Non Tender, Non-Distended, No Hepato-splenomegaly, No hernias noted Extremities: No clubbing, No cyanosis, No edema, Capillary Refill Less than 3 Seconds, Peripheral Pulses Normal Skin: No rashes, No breakdown Musculoskeletal: No Tenderness to Palpation of Joints or Extremities, No Muscle Wasting, Arthritic Changes Lymphatic: No Cervical, Supraclavicular, or Inguinal Adenopathy Neurological: Cranial nerves II-XII grossly intact, Neuro grossly intact, Muscle tone normal, Coordination normal, - - B LE neuropathy at feet Psych/Mental Status: Normal Affect, Appropriate, Alert and oriented to time, place, person, mood and affect Microbiology Past 72 Hours 06/30/20 08:35 Urine Catheter - Catheter Urine Culture - Preliminary Presumptive E. coli 06/30/20 06:55 Mucosa - Nasopharyngeal Respiratory Panel (PCR) - Final Laboratory Results 06/30/20 16:48: POC Glucose 206 H 06/30/20 21:46: POC Glucose 235 H 07/01/20 05:14: WBC 6.3, RBC 3.05 L, Hgb 9.4 L, Hct 31.1 L, MCV 102.0 H, MCH 30.8, MCHC 30.2 L, RDW Std Deviation 55.9 H, RDW Coeff of Rohan 14.8 H, Plt Count Not Reportable, MPV 12.2 H, Immature Gran % (Auto) 3.000 H, Neut % (Auto) 80.3 H, Lymph % (Auto) 9.3 L, [place] % (Auto) 7.0, Eos % (Auto) 0.2, Baso % (Auto) 0.2, Absolute Neuts (auto) 5.0, Absolute Lymphs (auto) 0.58 L, Nucleated RBC % 0, Differential Comment SCANNED, Platelet Estimate ADEQUATE 07/01/20 05:14: Sodium 140, Potassium 4.3, Chloride 108 H, Carbon Dioxide 22.0, Anion Gap 10, BUN 55 H, Creatinine 5.03 H, Estim Creat Clear Calc 7.13, Est GFR (MDRD) Af Amer 11 L, Est GFR (MDRD) Non-Af 9 L, BUN/Creatinine Ratio 10.9, Glucose 202 H, Calcium 7.3 L, Phosphorus 4.5, Total Bilirubin 0.50, AST 43 H, ALT 40, Alkaline Phosphatase 35 L, Total Protein 5.8 L, Albumin 2.4 L, Globulin 3.4, Albumin/Globulin Ratio 0.7 L 07/01/20 06:44: POC Glucose 217 H 07/01/20 11:19: POC Glucose 283 H Current Medications Acetaminophen (Tylenol) 650 mg PO Q6H PRN PRN PRN Reason: Pain Score 1-10/Temp > 100.7 F Last Admin: 07/01/20 05:59 Dose: 650 mg Documented by: Al Hydroxide/Mg Hydroxide (Mylanta Ii) 30 ml PO Q6H PRN PRN PRN Reason: Gastric Burning Albuterol Sulfate (Ventolin Aerosols) 2.5 mg INHALATION Q2H PRN PRN PRN Reason: SOB/Wheezing Aspirin (Ecotrin) 81 mg PO DAILY [facility] Last Admin: 07/01/20 09:34 Dose: 81 mg Documented by: Atorvastatin Calcium (Lipitor) 40 mg PO QHS [facility] Last Admin: 06/30/20 21:39 Dose: 40 mg Documented by: Calcium Carbonate (Tums) 500 mg PO BIDCM [facility] Last Admin: 07/01/20 09:35 Dose: Not Given Documented by: Famotidine (Pepcid) 20 mg PO DAILY [facility] Last Admin: 07/01/20 09:34 Dose: 20 mg Documented by: Guaifenesin (Robitussin) 10 ml PO Q4H PRN PRN PRN Reason: COUGH Heparin Sodium (Porcine) (Heparin Na) 5,000 unit SC Q12 [facility] Last Admin: 07/01/20 09:34 Dose: 5,000 unit Documented by: Sodium Chloride () 250 mls @ 15 mls/hr IV .[id number] PRN PRN Reason: Saline Flush Last Infusion: 07/01/20 08:14 Dose: 0 mls/hr Documented by: Sodium Chloride () 250 mls @ 15 mls/hr IV .[id number] PRN PRN Reason: Additional IVPB Infusion Sodium Chloride () 250 mls @ 15 mls/hr IV .[id number] PRN PRN Reason: Saline Flush Piperacillin Sod/Tazobactam (Sod 3.375 gm/ Sodium Chloride) 50 mls @ 12.5 mls/hr IV Q12 [facility] Last Infusion: 07/01/20 13:34 Dose: Infused Documented by: Vancomycin IV Pharmacy to Dose (1 ea/ Sodium Chloride) 500 mls @ 250 mls/hr IV X1 PRN; Protocol PRN Reason: Rx to Dose Vancomycin HCl 750 mg/ Sodium (Chloride) 265 mls @ 250 mls/hr IV X1 ONE Stop: 07/01/20 18:03 Insulin Human Lispro (Humalog Kwikpen (Bkc)) 0 unit SC [facility]; Protocol Last Admin: 07/01/20 11:21 Dose: 4 u Documented by: Melatonin (Melatonin) 3 mg PO QHS PRN PRN PRN Reason: INSOMNIA Ondansetron HCl (Zofran) 4 mg IV Q8H PRN PRN PRN Reason: NAUSEA/VOMITING Pregabalin (Lyrica) 100 mg PO QHS [facility] Last Admin: 06/30/20 21:47 Dose: 100 mg Documented by: Promethazine HCl (Phenergan) 25 mg IM Q6H PRN PRN PRN Reason: Breakthrough Nausea/Vomiting Senna/Docusate Sodium (Senokot-S, Justa-Colace) 2 tablet PO BID PRN PRN Reason: Constipation Sodium Chloride () 10 - 40 ml IV UD PRN PRN Reason: SALINE FLUSH Last Admin: 07/01/20 09:35 Dose: 10 ml Documented by: Sodium Chloride () 10 - 40 ml IV UD PRN PRN Reason: SALINE FLUSH Medical Necessity - Tobacco Use Smoking Status: Former smoker Assessment/Plan All Active Problems (Last Reviewed 01/24/20 @ 13:23 by Jolene Juan) Sepsis (Acute) UTI (urinary tract infection) (Acute) ESRD (end stage renal disease) on dialysis (Acute) melanoma removal (Acute) Severe Sepsis 2/2 UTI -resolved -responded to IVF and pressors never needed -BP normalized -urine + for UTI -Blood cx pending -MRSA PCR is pending E. Coli UTI -continue Zosyn and await sens -d/c Vanc Lactic Acidosis -resolved Anemia-Macrocytic -chronic and stable ESRD on HD -iHD MWF -was seen by Nephro today DM-2 -SSI -add Lantus 20 u now (home dose is 45 u at HS) HPL/HTN -continue statin -continue fenofibrate -restart coreg/clonidine once BP trends back up -hold lasix Neuropathy -Gabapentin GERD -continue H2 juan m DVT prophylaxis -Heparin Code Status -Full Inpatient E&M: 90828 [facility] Hosp L3
[2020-07-01 17:13] LABS: Hepatitis B Surface Antigen Non-Reactive (Nonreactive)
[2020-07-01] MEDS: Carvedilol 25 MG Tablet PO ×2 (17:39→21:31)
[2020-07-01] MEDS: cloNIDine HCl 0.1 MG Tablet 0.3 MG PO ×2 (17:39→21:32)
[2020-07-01 17:50] LABS: Bedside Glucose 134 mg/dL (70-110)
--- NOTE | 2020-07-01 18:24 | DIALYSIS ---
HD x3.5hrs completed at 1800 on a 3K bath, tolerated well, UF 1200mL, accessed via LFA AVF using 16G needles, worked well, needles pulled post tx and stasis achieved without issue
[2020-07-01] MEDS: Atorvastatin Calcium 40 MG Tablet PO (21:31)
[2020-07-01] MEDS: Pregabalin 50 MG Capsule 100 MG PO (21:31)
[2020-07-01 21:56] LABS: Bedside Glucose 319 mg/dL (70-110)
[2020-07-02 03:30] VITALS: BP 138/52; PULSE 73; RESP 16; TEMP 36.7; O2SAT 92
[2020-07-02 03:33] VITALS: PULSE 70
[2020-07-02 06:34] LABS: Absolute Lymphocyte Count 1.02 X10^3/uL (0.83-4.51); Absolute Neutrophil Count 4.8 X10^3/uL (2.0-7.7); Basophil# 0.02 X10^3/uL; Basophil% 0.3 % (0-1); Eosinophil# 0.12 X10^3/uL; Eosinophils% 1.9 % (0-5); Hemoglobin 9.2 g/dL (12.0-15.0); Lymphocyte # 1.02 X10^3/ul (4.0); Lymphocyte % 16.2 % (19-41); Mean Corp Hgb Conc 30.7 g/dL (32-36); Mean Corpuscular Hgb 30.4 pg (27.0-32.0); Mean Platelet Vol. 13.9 fl (6.2-12.0); Monocyte# 0.25 X10^3/uL; NRBC Flagged by Analyzer 0 % (0-5); Neutrophil # 4.83 X10^3/uL (2.7-7.7); Neutrophil % 76.8 % (47-70); POSITIVE COUNT YES; Platelet Count 61 K/mm3 (150-450); RBC Distribution Width CV 14.4 % (11.6-14.6); RBC Distribution Width SD 52.5 fl (35.1-43.9); Red Blood Count 3.03 M/mm3 (4.2-5.4); White Blood Count 6.3 K/mm3 (4.4-11.0)
[2020-07-02 06:40] LABS: Differential Indicated SCAN CRITERIA MET
[2020-07-02] MEDS: Insulin Lispro 100 UNIT/ML INSULN.PEN SC ×2 (06:42→11:06)
[2020-07-02 06:45] LABS: Bedside Glucose 234 mg/dL (70-110)
[2020-07-02 06:51] VITALS: PULSE 68
[2020-07-02 06:58] LABS: ALB/GLOB Ratio 0.6 RATIO (0.9-2.4); AST(SGOT) 28 U/L (15-37); Alanine Aminotransfer ALT/SGPT 35 U/L (13-56); Albumin, Serum 2.2 g/dL (3.2-5.0); Alkaline Phosphatase 46 U/L (45-117); Anion Gap 8 (5-15); BUN 36 mg/dL (7-18); BUN/Creat Ratio 9.3 RATIO (10-20); Calcium,Total 7.6 mg/dL (8.5-10.1); Chloride 100 mmol/L (98-107); Creatinine, Serum 3.87 mg/dL (0.55-1.02); EST Glomerular Filtration Rate 12 mL/min (>60); Est Glom Filt Rate - Afr Amer 14 mL/min (>60); Estimated Creatinine Clearance 9.27 ml/min; Globulin 3.7 g/dL (2.2-4.2); Glucose 225 mg/dL (74-106); Potassium 3.8 mmol/L (3.5-5.1); Protein, Total 5.9 g/dL (6.4-8.2); Sodium Level 136 mmol/L (136-145)
[2020-07-02 07:28] LABS: Differential Comment SCANNED
[2020-07-02 07:29] LABS: Platelet Estimate SLT DEC (ADEQ); Platelet Morphology CLUMPED
[2020-07-02 09:22] VITALS: BP 138/38; PULSE 74; RESP 18; TEMP 36.4; O2SAT 94
[2020-07-02] MEDS: Heparin Injection (Vial) 5,000 UNIT/ML VIAL 5000 UNIT SC (09:25)
[2020-07-02] MEDS: Famotidine 20 MG Tablet PO (09:25)
[2020-07-02] MEDS: Carvedilol 12.5 MG Tablet PO (09:25)
[2020-07-02] MEDS: Aspirin E.C. 81 MG Tablet PO (09:25)
[2020-07-02] MEDS: cloNIDine HCl 0.1 MG Tablet 0.3 MG PO (09:25)
[2020-07-02] MEDS: 0.9% Saline Lock 10 ML Syringe IV (09:25)
[2020-07-02 11:11] LABS: Bedside Glucose 306 mg/dL (70-110)
--- NOTE | 2020-07-02 11:47 | CASEMGMT ---
This RN CM to room to discuss discharge plan with pt at this time. Pt states no concerns with going home at time of discharge and states no need for any further therapy at discharge at this time. Pt states she does do water therapy twice daily. Pt voices no further questions/concerns/needs at this time. Pt states has equipment at home but does not currently use. Pt awaiting discharge at this time. [place] GEORGE TRIMBLE
--- NOTE | 2020-07-02 12:28 | DCINST_ITS ---
- Discharge Diagnoses Current Active Problems: Current Active and Chronic Problems (Last Reviewed 06/30/20 @ 09:[address] Tadeo Larsen MD) Sepsis (Acute) UTI (urinary tract infection) (Acute) ESRD (end stage renal disease) on dialysis (Acute) You will use the following diet at home:: Renal (restricted protein/sodium) Your food should be the consistency of: Regular Your liquids should be the consistency of: Regular/Thin Discharge Activity: Return to Normal Activity, No Restrictions Allergies/Adverse Reactions: Allergies No Known Allergies Allergy (Verified 06/30/20 06:11) Medications to take at Discharge Fenofibrate 134 mg PO DAILY 03/01/16 aspirin 81 mg tablet,delayed release 81 mg PO QDAY 11/09/17 atorvastatin 40 mg tablet 40 mg PO QHS 11/09/17 ranitidine HCl 150 mg tablet 150 mg PO QDAY 06/18/18 clonidine HCl 0.3 mg tablet 0.3 mg PO BID tab 10/09/18 furosemide 40 mg tablet 40 mg PO BID 10/09/18 Insulin Lispro [Humalog] 20 - 26 unit SQ TIDCM 01/07/19 carvedilol 25 mg tablet 25 mg PO QHS tab 01/29/19 Insulin Glargine [Lantus (BKC)] 45 units SUBCUT QHS 02/11/19 calcium carbonate 500 mg calcium (1,250 mg) chewable tablet 500 mg PO BID 01/24/20 pregabalin 100 mg capsule 100 mg PO QHS cap 01/24/20 Calcium Acetate 667 mg PO TID 06/30/20 Carvedilol [Coreg] 12.5 mg PO DAILY 06/30/20 Cholecalciferol (Vitamin D3) [Vitamin D3] 5,000 unit PO DAILY 06/30/20 Folic Acid/Vit B Complex and C [Renal-Shameka Tablet] 0.8 mg PO DAILY 06/30/20 Gabapentin [Neurontin] 100 mg PO DAILY 06/30/20 Ciprofloxacin [Cipro] 250 mg PO BID 3 Days #6 tab 07/02/20 The following prescriptions were given: Ciprofloxacin [Cipro] 250 mg PO BID 3 Days #6 tab Transmission Status: Pending to [id number] Primary Care Physician: Gabriela Dickens MD [Primary Care Provider] - Please follow up with your Primary Care Physician in: 1 week for hospital follow-up Test Results: Test results from this visit will be discussed in further detail at your follow- up appointment, if applicable.
--- NOTE | 2020-07-02 12:29 | DS.PCM_ITS ---
Discharge Date and Diagnosis - Problem List Patient Problems: Active and Suspected Problems (Last Reviewed 06/30/20 @ 09:[address] Tadeo Larsen MD) Sepsis (Acute) UTI (urinary tract infection) (Acute) ESRD (end stage renal disease) on dialysis (Acute) Date of Admission: 06/30/20 Date of Discharge: 07/02/20 - Primary Discharge Diagnosis Acute Problems: Active Problems (Last Reviewed 06/30/20 @ 09:[address] Tadeo Larsen MD) Sepsis (Acute) UTI (urinary tract infection) (Acute) ESRD (end stage renal disease) on dialysis (Acute) - Secondary Discharge Diagnosis Chronic Problems: Chronic Problems (Last Reviewed 06/30/20 @ 09:[address] 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 Continues to use salt as well Hypertension associated with chronic kidney disease due to type 2 diabetes mellitus (Chronic) BP remains elevated. 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 Diet and food choices remain an issue. Has not changed her eating habits and therefore BG readings have never stabilized. Pt has made choices which have continued to create high BG readings. She is now being prepped for upcoming dialysis. She is doing well with making insulin adjustments and making BG corrections. She is doing fairly well with exercise. Lymphedema of left lower extremity (Chronic) Hospital Course and Treatment Imaging Results: STUDY: X-RAY CHEST REASON FOR EXAM: Female, 80 years old. reps insufficiency, severe sepsis TECHNIQUE: Single AP portable view of the chest. COMPARISON: None. FINDINGS: EKG electrodes are seen. Minimal increased markings at the lung bases suggestive of bibasilar atelectasis. There is no demonstrated pleural abnormality. There is mild cardiac enlargement. Normal mediastinum and chaz. Normal visualized pulmonary arteries. There is atherosclerotic calcification of the aortic arch with tortuosity. Normal visualized thoracic spine. Normal visualized ribs, clavicles, and shoulders. There is no demonstrated abnormality of the visualized soft tissue structures of the upper abdomen. RAD/Chest 1 View (Portable) IMPRESSION: Minimal degree of increased linear markings at the lung bases suggestive of bibasilar atelectasis. CCM Operations: None Procedures: None Summary of Care Provided: The patient is a 80 year old F last medical history single for diabetes mellitus type 2 and end-stage renal disease on hemodialysis transferred from [facility] account of severe sepsis. Patient did have dialysis the day prior to his admission. She was seen and evaluated at the [facility] and a diagnosis of sepsis secondary to UTI was made. the patient asked to be transferred to the [facility] and was transferred directly from [facility] ED to the ICU. Patient upon arrival she was found to be hypotensive with elevated lactic acid level of 11 and management was initiated per sepsis protocol. Despite being ESRD the pt makes urine. Blood and urine cultures were sent. She responded well to IVF and never required pressors. She was able to be transferred out of the ICU shortly after arriving with stable BP and resolved lactic acidosis. She was found to have E. coli on urine cx with lower colony counts but she did receive abx prior to this culture and she was treated with IV zosyn. Blood cx were NGTD at 48 hrs. She was feeling much better after volume resuscitation and antibiotics. She will complete a course of ABX for uncomplicated UTI with Cipro based on sensitivities and a script was sent for this at d/c. She tolerated her normal HD on 07/01 and will go to her iHD site tomorrow am for HD. She was seen by PT and they felt she was ok for d/c home at this time. >31' D/C time Patient Problems: Active and Suspected Problems (Last Reviewed 06/30/20 @ 09:[address] Tadeo Larsen MD) Sepsis (Acute) UTI (urinary tract infection) (Acute) ESRD (end stage renal disease) on dialysis (Acute) Subjective: Pt is feeling much better overall. Got up with therapy today and she was able to ambulate but states she got tired to the end. Anxious to go home - Physical Exam Vitals/I&O's: Vital Signs Temp Pulse Resp BP Pulse Ox 97.5 F L 74 18 138/38 H 94 07/02/20 09:22 07/02/20 09:22 07/02/20 09:22 07/02/20 09:22 07/02/20 09:22 Oxygen Flow Rate (L/min) 2 Oxygen Delivery Method Room Air Weight: 93.1 kg Body Mass Index (BMI) 36.0 Intake and Output for Last 24 Hours 06/30/20 07/01/20 07/02/20 23:59 23:59 23:59 Intake Total 2559.00 / 2559.00 1222.75 / 1422.75 321.25 / 321.25 Output Total 450 / 450 2250 / 2250 Balance 2109.00 / 2109.00 -1027.25 / -827.25 321.25 / 321.25 General: Alert, Oriented x3, Cooperative, No apparent distress, Well developed, Well nourished, - - Obese WF sitting up in a chair, just arrived HEENT: Atraumatic, PERRLA, EOMI, Normocephalic, EAC Clear Oral: Moist Mucosa, No Gingival or Mucosal Lesions/ Ulcerations Neck: Supple, Trachea Midline, Thyroid Normal Size and Texture Lungs: Clear to auscultation, Normal air movement, No rhonchi, No wheeze, No rales Cardiovascular: Regular rate, Regular Rhythm, Normal S1, Normal S2, No murmurs, No Ectopic Activity, No rub noted, No Gallop Abdomen: Bowel Sounds Present, Soft, Non Tender, Non-Distended, Obese Extremities: No clubbing, No cyanosis, No edema, Capillary Refill Less than 3 Seconds, Peripheral Pulses Normal Skin: No rashes, No breakdown Musculoskeletal: No Tenderness to Palpation of Joints or Extremities, No Muscle Wasting, Arthritic Changes Neurological: Cranial nerves II-XII grossly intact, Neuro grossly intact, - - generalized weakness Psych/Mental Status: Normal Affect, Appropriate, Alert and oriented to time, place, person, mood and affect Microbiology Past 72 Hours 06/30/20 09:40 Blood Culture (Wb) - Right Forearm Blood Culture - Preliminary No growth in 48 hours. 06/30/20 07:05 Blood Culture (Wb) - Anticubital Right Blood Culture - Preliminary No growth in 48 hours. 06/30/20 08:35 Urine Catheter - Catheter Urine Culture - Final Presumptive E. coli 06/30/20 06:55 Mucosa - Nasopharyngeal Respiratory Panel (PCR) - Final Laboratory Results 07/01/20 15:55: Hep Bs Antigen Non-Reactive 07/01/20 17:44: POC Glucose 134 H 07/01/20 21:30: POC Glucose 319 H 07/02/20 05:40: WBC 6.3, RBC 3.03 L, Hgb 9.2 L, Hct 30.0 L, MCV 99.0, MCH 30.4, MCHC 30.7 L, RDW Std Deviation 52.5 H, RDW Coeff of Rohan 14.4, Plt Count 61 L, MPV 13.9 H, Immature Gran % (Auto) 0.800, Neut % (Auto) 76.8 H, Lymph % (Auto) 16.2 L, [place] % (Auto) 4.0, Eos % (Auto) 1.9, Baso % (Auto) 0.3, Absolute Neuts (auto) 4.8, Absolute Lymphs (auto) 1.02, Nucleated RBC % 0, Differential Comment SCANNED, Platelet Estimate SLT DEC, Plt Morphology Comment CLUMPED 07/02/20 05:40: Sodium 136, Potassium 3.8, Chloride 100, Carbon Dioxide 28.0, Anion Gap 8, BUN 36 H, Creatinine 3.87 H, Estim Creat Clear Calc 9.27, Est GFR (MDRD) Af Amer 14 L, Est GFR (MDRD) Non-Af 12 L, BUN/Creatinine Ratio 9.3 L, Glucose 225 H, Calcium 7.6 L, Total Bilirubin 0.60, AST 28, ALT 35, Alkaline Phosphatase 46, Total Protein 5.9 L, Albumin 2.2 L, Globulin 3.7, Albumin/Globulin Ratio 0.6 L 07/02/20 06:41: POC Glucose 234 H 07/02/20 11:05: POC Glucose 306 H Current Medications Acetaminophen (Tylenol) 650 mg PO Q6H PRN PRN PRN Reason: Pain Score 1-10/Temp > 100.7 F Last Admin: 07/01/20 05:59 Dose: 650 mg Documented by: Al Hydroxide/Mg Hydroxide (Mylanta Ii) 30 ml PO Q6H PRN PRN PRN Reason: Gastric Burning Albuterol Sulfate (Ventolin Aerosols) 2.5 mg INHALATION Q2H PRN PRN PRN Reason: SOB/Wheezing Aspirin (Ecotrin) 81 mg PO DAILY [facility] Last Admin: 07/02/20 09:25 Dose: 81 mg Documented by: Atorvastatin Calcium (Lipitor) 40 mg PO QHS [facility] Last Admin: 07/01/20 21:31 Dose: 40 mg Documented by: Calcium Carbonate (Tums) 500 [facility] Last Admin: 07/02/20 09:23 Dose: Not Given Documented by: Carvedilol (Coreg) 12.5 mg PO DAILY [facility] Last Admin: 07/02/20 09:25 Dose: 12.5 mg Documented by: Carvedilol (Coreg) 25 mg PO QHS [facility] Last Admin: 07/01/20 21:31 Dose: 25 mg Documented by: Clonidine (Catapres) 0.3 mg PO BID [facility] Last Admin: 07/02/20 09:25 Dose: 0.3 mg Documented by: Famotidine (Pepcid) 20 mg PO DAILY [facility] Last Admin: 07/02/20 09:25 Dose: 20 mg Documented by: Guaifenesin (Robitussin) 10 ml PO Q4H PRN PRN PRN Reason: COUGH Heparin Sodium (Porcine) (Heparin Na) 5,000 unit SC Q12 [facility] Last Admin: 07/02/20 09:25 Dose: 5,000 unit Documented by: Hydralazine HCl (Apresoline Iv) 10 mg IV Q6H PRN PRN PRN Reason: SBP >160 Sodium Chloride () 250 mls @ 15 mls/hr IV .[id number] PRN PRN Reason: Saline Flush Last Infusion: 07/02/20 06:17 Dose: 0 mls/hr Documented by: Sodium Chloride () 250 mls @ 15 mls/hr IV .[id number] PRN PRN Reason: Additional IVPB Infusion Sodium Chloride () 250 mls @ 15 mls/hr IV .[id number] PRN PRN Reason: Saline Flush Piperacillin Sod/Tazobactam (Sod 3.375 gm/ Sodium Chloride) 50 mls @ 12.5 mls/hr IV Q12 [facility] Last Admin: 07/02/20 09:25 Dose: 12.5 mls/hr Documented by: Insulin Glargine (Lantus (Bk)) 20 units SC QHS [facility] Last Admin: 07/01/20 21:33 Dose: 20 units Documented by: Insulin Human Lispro (Humalog Kwikpen (Bk)) 0 unit SC [facility]; Protocol Last Admin: 07/02/20 11:06 Dose: 4 u Documented by: Melatonin (Melatonin) 3 mg PO QHS PRN PRN PRN Reason: INSOMNIA Ondansetron HCl (Zofran) 4 mg IV Q8H PRN PRN PRN Reason: NAUSEA/VOMITING Pregabalin (Lyrica) 100 mg PO QHS [facility] Last Admin: 07/01/20 21:31 Dose: 100 mg Documented by: Promethazine HCl (Phenergan) 25 mg IM Q6H PRN PRN PRN Reason: Breakthrough Nausea/Vomiting Senna/Docusate Sodium (Senokot-S, Justa-Colace) 2 tablet PO BID PRN PRN Reason: Constipation Sodium Chloride () 10 - 40 ml IV UD PRN PRN Reason: SALINE FLUSH Last Admin: 07/02/20 09:25 Dose: 10 ml Documented by: Sodium Chloride () 10 - 40 ml IV UD PRN PRN Reason: SALINE FLUSH Discharge Activity: Return to Normal Activity, No Restrictions Home Medications: Medications to take at Discharge Fenofibrate 134 mg PO DAILY 03/01/16 aspirin 81 mg tablet,delayed release 81 mg PO QDAY 11/09/17 atorvastatin 40 mg tablet 40 mg PO QHS 11/09/17 ranitidine HCl 150 mg tablet 150 mg PO QDAY 06/18/18 clonidine HCl 0.3 mg tablet 0.3 mg PO BID tab 10/09/18 furosemide 40 mg tablet 40 mg PO BID 10/09/18 Insulin Lispro [Humalog] 20 - 26 unit SQ TIDCM 01/07/19 carvedilol 25 mg tablet 25 mg PO QHS tab 01/29/19 Insulin Glargine [Lantus (BKC)] 45 units SUBCUT QHS 02/11/19 calcium carbonate 500 mg calcium (1,250 mg) chewable tablet 500 mg PO BID 01/24/20 pregabalin 100 mg capsule 100 mg PO QHS cap 01/24/20 Calcium Acetate 667 mg PO TID 06/30/20 Carvedilol [Coreg] 12.5 mg PO DAILY 06/30/20 Cholecalciferol (Vitamin D3) [Vitamin D3] 5,000 unit PO DAILY 06/30/20 Folic Acid/Vit B Complex and C [Renal-Shameka Tablet] 0.8 mg PO DAILY 06/30/20 Gabapentin [Neurontin] 100 mg PO DAILY 06/30/20 Ciprofloxacin [Cipro] 250 mg PO BID 3 Days #6 tab 07/02/20 Following Prescriptions Were Given to Patient: Ciprofloxacin [Cipro] 250 mg PO BID 3 Days #6 tab Transmission Status: Pending to [id number] Primary Care Physician: Gabriela Dickens MD [Primary Care Provider] - Please follow up with your Primary Care Physician in: 1 week for hospital follow-up Medical Necessity - Tobacco Use Smoking Status: Former smoker Meaningful Use Info Meaningful Use Diagnoses (Choose all that apply): None applicable Inpatient E&M: 33726 Disch Hosp
--- NOTE | 2020-07-02 13:34 | PCM.PN.REN ---
Subjective: no new events - Physical Exam Vitals/I&O's: Vital Signs Temp Pulse Resp BP Pulse Ox 97.5 F L 74 18 138/38 H 94 07/02/20 09:22 07/02/20 09:22 07/02/20 09:22 07/02/20 09:22 07/02/20 09:22 Oxygen Flow Rate (L/min) 2 Oxygen Delivery Method Room Air Weight: 93.1 kg Body Mass Index (BMI) 36.0 Intake and Output for Last 24 Hours 06/30/20 07/01/20 07/02/20 23:59 23:59 23:59 Intake Total 2559.00 / 2559.00 1222.75 / 1422.75 771.25 / 771.25 Output Total 450 / 450 2250 / 2250 Balance 2109.00 / 2109.00 -1027.25 / -827.25 771.25 / 771.25 General: Alert, Oriented x3, Cooperative HEENT: Atraumatic, PERRLA, EOMI, Normocephalic Neck: Supple, No JVD, Negative Carotid Bruits Lungs: Clear to auscultation, Normal air movement Cardiovascular: Regular rate, No murmurs Abdomen: Bowel Sounds Present, Soft, Non Tender Extremities: No edema, Capillary Refill Less than 3 Seconds Skin: No rashes, No breakdown Musculoskeletal: No Tenderness to Palpation of Joints or Extremities Neurological: Cranial nerves II-XII grossly intact Psych/Mental Status: Normal Affect, Appropriate Microbiology Past 72 Hours 06/30/20 09:40 Blood Culture (Wb) - Right Forearm Blood Culture - Preliminary No growth in 48 hours. 06/30/20 07:05 Blood Culture (Wb) - Anticubital Right Blood Culture - Preliminary No growth in 48 hours. 06/30/20 08:35 Urine Catheter - Catheter Urine Culture - Final Presumptive E. coli 06/30/20 06:55 Mucosa - Nasopharyngeal Respiratory Panel (PCR) - Final Laboratory Results 07/01/20 15:55: Hep Bs Antigen Non-Reactive 07/01/20 17:44: POC Glucose 134 H 07/01/20 21:30: POC Glucose 319 H 07/02/20 05:40: WBC 6.3, RBC 3.03 L, Hgb 9.2 L, Hct 30.0 L, MCV 99.0, MCH 30.4, MCHC 30.7 L, RDW Std Deviation 52.5 H, RDW Coeff of Rohan 14.4, Plt Count 61 L, MPV 13.9 H, Immature Gran % (Auto) 0.800, Neut % (Auto) 76.8 H, Lymph % (Auto) 16.2 L, [place] % (Auto) 4.0, Eos % (Auto) 1.9, Baso % (Auto) 0.3, Absolute Neuts (auto) 4.8, Absolute Lymphs (auto) 1.02, Nucleated RBC % 0, Differential Comment SCANNED, Platelet Estimate SLT DEC, Plt Morphology Comment CLUMPED 07/02/20 05:40: Sodium 136, Potassium 3.8, Chloride 100, Carbon Dioxide 28.0, Anion Gap 8, BUN 36 H, Creatinine 3.87 H, Estim Creat Clear Calc 9.27, Est GFR (MDRD) Af Amer 14 L, Est GFR (MDRD) Non-Af 12 L, BUN/Creatinine Ratio 9.3 L, Glucose 225 H, Calcium 7.6 L, Total Bilirubin 0.60, AST 28, ALT 35, Alkaline Phosphatase 46, Total Protein 5.9 L, Albumin 2.2 L, Globulin 3.7, Albumin/Globulin Ratio 0.6 L 07/02/20 06:41: POC Glucose 234 H 07/02/20 11:05: POC Glucose 306 H Medical Necessity - Tobacco Use Smoking Status: Former smoker Assessment/Plan All Active Problems (Last Reviewed 01/24/20 @ 13:23 by Jolene Juan) Sepsis (Acute) UTI (urinary tract infection) (Acute) ESRD (end stage renal disease) on dialysis (Acute) melanoma removal (Acute) ESRD. HD today anemia. JUSTIN with HD sepsis. resolved. management as per primary
== END 2020-07-02 13:28 | disposition home or self-care (01) | DRG 871 ==
LOC: ICU 16:47 → PCU 07-01
PROVIDERS: Internal Medicine; Internal Medicine Critical Care Medicine; Internal Medicine Nephrology; Admitting Provider Family Medicine; PCP Internal Medicine; Visit Provider Internal Medicine
DX: A41.51 Sepsis due to Escherichia coli [E. coli] (principal); N18.6 End stage renal disease; N30.00 Acute cystitis without hematuria; I12.0 Hypertensive chronic kidney disease with stage 5 chronic kidney disease or end stage renal disease; E87.2 Acidosis; R65.20 Severe sepsis without septic shock; E78.5 Hyperlipidemia, unspecified; E11.40 Type 2 diabetes mellitus with diabetic neuropathy, unspecified; K21.9 Gastro-esophageal reflux disease without esophagitis; D63.1 Anemia in chronic kidney disease; E11.22 Type 2 diabetes mellitus with diabetic chronic kidney disease; E66.9 Obesity, unspecified; I89.0 Lymphedema, not elsewhere classified; Z99.2 Dependence on renal dialysis; Z87.891 Personal history of nicotine dependence; Z68.36 Body mass index [BMI] 36.0-36.9, adult
CPT/HCPCS: 36415; 71045; 80053; 81001; 82962; 83605; 84100; 85025; 87040; 87086; 87088; 87186; 87340; 87633; 87635; 87641; 90937; 94799; 97116; 97162; 97166; 97530; J7030; J7040; J7050; J7120; A4216; G0257; U0003

== ENCOUNTER 2020-07-05 12:23 | Inpatient (IN) | payer MEDICARE, OTHER, SELFPAY ==
[2020-06-30 06:11] VITALS: BMI 36.0
[2020-07-05 12:24] VITALS: BP 138/96; PULSE 67; RESP 18; TEMP 36.6; O2SAT 97; BMI 35.4
[2020-07-05 13:13] VITALS: BP 138/96; PULSE 67; RESP 17; TEMP 36.7; O2SAT 97
--- NOTE | 2020-07-05 13:20 | VDLE_ITS ---
Reason For Study: LLE swelling & redness RIGHT LEFT CFV is compressible, spontaneous, phasic, GSV is normal. competent and demonstrates normal CFV is compressible, spontaneous, phasic, augmentation. competent, and demonstrates normal Procedure augmentation. Exam performed portable in patient room. FV is compressible, spontaneous, phasic, The exam was diagnostic. competent and demonstrates normal A preliminary report was called and/or faxed augmentation. to [facility]. POP V is compressible, spontaneous, phasic, competent and demonstrates normal augmentation. T/P Trunk is compressible. PTV is compressible. LT PerV is compressible. Interpretation Summary There is no evidence of left lower extremity deep vein thrombosis. Left great saphenous vein appears patent and compressible segmentally. Patent and compressible right common femoral vein Ordering Physician: Mikaela Jacobson Referring Physician: Gabriela Dickens Performed By: Melany Shukla, BRE, RVT
[2020-07-05 13:59] LABS: Erythrocyte Sedimentation Rate 73 mm/hr (0-30)
[2020-07-05 14:02] LABS: Absolute Lymphocyte Count 0.92 X10^3/uL (0.83-4.51); Basophil# 0.02 X10^3/uL; Basophil% 0.4 % (0-1); Eosinophil# 0.17 X10^3/uL; Eosinophils% 3.6 % (0-5); Hematocrit 31.9 % (37-47); Hemoglobin 10.1 g/dL (12.0-15.0); Lymphocyte # 0.92 X10^3/ul (4.0); Lymphocyte % 19.6 % (19-41); Mean Corp Hgb Conc 31.7 g/dL (32-36); Mean Corpuscular Hgb 30.7 pg (27.0-32.0); Monocyte# 0.46 X10^3/uL; Monocyte% 9.8 % (0-10); NRBC Flagged by Analyzer 0 % (0-5); Neutrophil % 63.8 % (47-70); POSITIVE COUNT YES; Platelet Count 109 K/mm3 (150-450); RBC Distribution Width CV 13.8 % (11.6-14.6); RBC Distribution Width SD 48.7 fl (35.1-43.9); Red Blood Count 3.29 M/mm3 (4.2-5.4); White Blood Count 4.7 K/mm3 (4.4-11.0)
[2020-07-05 14:15] LABS: Anion Gap 10 (5-15); BUN 58 mg/dL (7-18); BUN/Creat Ratio 11.8 RATIO (10-20); Chloride 105 mmol/L (98-107); Creatinine, Serum 4.93 mg/dL (0.55-1.02); EST Glomerular Filtration Rate 9 mL/min (>60); Est Glom Filt Rate - Afr Amer 11 mL/min (>60); Estimated Creatinine Clearance 7.28 ml/min; Glucose 321 mg/dL (74-106); Sodium Level 138 mmol/L (136-145)
[2020-07-05 14:20] LABS: International Normalized Ratio 1.1; Prothrombin Time (Protime)PT. 14.1 SECONDS (11.7-14.9)
[2020-07-05 14:29] LABS: Differential Comment SCANNED; Differential Indicated SCAN CRITERIA MET
[2020-07-05 14:41] LABS: Lactic Acid 1.1 mmol/L (0.4-1.9)
--- NOTE | 2020-07-05 14:54 | ED.DCSUM_ITS ---
History of Present Illness Chief Complaint: Cellulitis Informant: Patient Narrative: Is an 80-year-old female presenting from home with worsening redness, warmth and discomfort of her left lower leg. Patient was recently hospitalized from 06/30 to 07/02 for UTI and sepsis. Patient states for the past 5 days she is had worsening redness and pain of her left leg. It is now moving up her leg from below her knee to her mid thigh. Patient finished a course of Cipro just recently for her UTI. She has end-stage renal disease and her last hemodialysis session was on Monday, 2 days ago. She feels that the redness of her leg is worsening and she is also having worsening discomfort associated with this. She states since yesterday the redness is now above the level of her knee. She denies any fever but states she did have an episode of diaphoresis and felt like a fever was breaking after she took Tylenol yesterday. Past Medical History - Allergies and Home Meds Allergies/Adverse Reactions: Allergies No Known Allergies Allergy (Verified 07/05/20 12:26) Past Medical History: - - Dialysis, UTI, end-stage renal disease Surgical History: - - Lymph node resection L groin, otherwise noncontributory Lives: Spouse/ Significant Other Smoking Status: Never smoker - Family History Maternal Family History: Family History (Last Reviewed 07/05/20 @ 16:01 by MARIBELL Williamson) Mother Diabetes Heart disease Hypertension High cholesterol Seizures Father Diabetes Heart disease High cholesterol Hypertension Kidney disease CVA (cerebral vascular accident) Paternal Family History: Family History (Last Reviewed 07/05/20 @ 16:01 by MARIBELL Williamson) Mother Diabetes Heart disease Hypertension High cholesterol Seizures Father Diabetes Heart disease High cholesterol Hypertension Kidney disease CVA (cerebral vascular accident) Review of Systems General: Denies: Chills, Fever, Sweats Eyes: Denies: Visual changes - bilaterally, Diplopia ENT: Denies: Rhinorrhea, Sore throat Cardiovascular: Denies: Chest pain, Palpitations Respiratory: Denies: Dyspnea, Cough, Dyspnea on exertion Gastrointestinal: Denies: Abdominal pain, Nausea, Vomiting, Diarrhea, Melena, Hematochezia Genitourinary: Denies: Dysuria, Hematuria, Frequency Musculoskeletal: Reports: Swelling - Left Lower leg, Extremity Pain - Mild throbbing, left lower leg . Denies: Back pain Skin: Reports: Rash - Left lower leg. Denies: Wounds Neurological: Denies: Headache, Weakness, Numbness Physical Exam Vital Signs/Narrative: Vital Signs Temp Pulse Resp BP Pulse Ox 07/05/20 13:13 98.0 F 67 17 138/96 H 97 07/05/20 12:24 98 F 67 18 138/96 H 97 General: Well nourished, Well developed, No Acute Distress Head: Normocephalic, Atraumatic Eyes: Perrl, EOMI ENT: Moist mucous membranes, No rhinorrhea Neck: Supple, Nontender Cardiovascular: Regular rate, Regular rhythm, No murmurs, - - Fistula in the left forearm with palpable thrill Respiratory: No distress, CTA bilaterally, Chest nontender Abdomen: Soft, Nontender, Nondistended, Normal bowel sounds Back: Nontender, Normal Inspection Extremities: Tenderness, Edema - Nonpitting, left lower extremity, - - 2+ bilateral DP pulses. Negative for: Calf Tenderness Skin: Rash - Warmth, erythema and mild petechia of the left lower leg extending from the ankle to the knee and then satellite lesions above the knee, mild associated tenderness to palpation, blanching Neurological: Alert, Oriented x3, Cranial nerves II-XII grossly intact, Normal Strength, Normal Sensation Psychological: Normal affect, Normal Mood Diagnostic/Tx/Re-eval Laboratory Data 07/05/20 07/05/20 07/05/20 13:40 13:40 13:40 WBC 4.7 RBC 3.29 L Hgb 10.1 L Hct 31.9 L MCV 97.0 MCH 30.7 MCHC 31.7 L RDW Std Deviation 48.7 H RDW Coeff of Rohan 13.8 Plt Count 109 L Immature Gran % (Auto) 2.800 H Neut % (Auto) 63.8 Lymph % (Auto) 19.6 [place] % (Auto) 9.8 Eos % (Auto) 3.6 Baso % (Auto) 0.4 Absolute Neuts (auto) 3.0 Absolute Lymphs (auto) 0.92 Nucleated RBC % 0 Differential Comment SCANNED ESR 73 H PT 14.1 INR 1.1 Sodium 138 Potassium 5.0 Chloride 105 Carbon Dioxide 23.0 Anion Gap 10 BUN 58 H Creatinine 4.93 H Estim Creat Clear Calc 7.28 Est GFR (MDRD) Af Amer 11 L Est GFR (MDRD) Non-Af 9 L BUN/Creatinine Ratio 11.8 Glucose 321 H Lactic Acid Calcium 8.0 L C-React Prot High Sens 95.50 H 07/05/20 14:05 WBC RBC Hgb Hct MCV MCH MCHC RDW Std Deviation RDW Coeff of Rohan Plt Count Immature Gran % (Auto) Neut % (Auto) Lymph % (Auto) [place] % (Auto) Eos % (Auto) Baso % (Auto) Absolute Neuts (auto) Absolute Lymphs (auto) Nucleated RBC % Differential Comment ESR PT INR Sodium Potassium Chloride Carbon Dioxide Anion Gap BUN Creatinine Estim Creat Clear Calc Est GFR (MDRD) Af Amer Est GFR (MDRD) Non-Af BUN/Creatinine Ratio Glucose Lactic Acid 1.1 Calcium C-React Prot High Sens - Medical Decision Making Patient is evaluated for worsening redness and warmth of her left lower leg. Patient peers nontoxic in no acute distress however she does have what appears to be significant cellulitis of the leg. There is no lymphangitic streaking but it is spread from her ankle all the way up to her mid thigh. I did initially order an ultrasound to definitively rule out a DVT given her recent hospitalization however ultrasounds no longer available. Patient does not have any symptoms consistent with a PE at this time. I think she stable to wait till an ultrasound for tomorrow. This is communicated to the admitting physician. Given that patient was on Cipro and continued have worsening of the cellulitis, I do think she would benefit from admission for IV antibiotics. Patient started on Ancef in the emergency room. She is agreeable with plan of care. She does not have a leukocytosis and blood cultures are pending. She does have elevated inflammatory markers including her CRP and ESR. She denies any crepitus I do not suspect necrotizing fasciitis. ED Disposition - Plan for ED Patient: Disposition: Acute Care Hospital [facility] Diagnosis: Diabetes type 2, uncontrolled, ESRD (end stage renal disease) on dialysis, Cellulitis of leg, left
[2020-07-05] MEDS: Cefazolin 1 GM/50 ML BAG IV (15:40)
[2020-07-05 15:44] VITALS: BP 140/74; PULSE 70; RESP 16; TEMP 36.8; O2SAT 96
--- NOTE | 2020-07-05 15:56 | PCM.HP.STD ---
<Caro Castaneda - Last Filed: 07/05/20 16:08> Problem List (1) Sepsis Status: Resolved (2) UTI (urinary tract infection) Status: Resolved (3) ESRD (end stage renal disease) on dialysis Status: Chronic (4) Carpal tunnel syndrome of left wrist Status: Chronic (5) Problem with dialysis access Status: Chronic Qualifiers: Encounter type: subsequent encounter Qualified Code(s): T82.898D - Other specified complication of vascular prosthetic devices, implants and grafts, subsequent encounter (6) Hx of arteriovenostomy for renal dialysis Status: Chronic Comment: 01/14/19 Fistulagram- 02/14/19 (7) Chronic renal failure, stage 4 (severe) Status: Chronic (8) S/P CECILIO-BSO Status: Chronic (9) Melanoma Status: Chronic (10) Carpal tunnel syndrome Status: Chronic (11) HTN (hypertension) Status: Chronic (12) Hyperlipidemia Status: Chronic (13) Diabetes type 2, uncontrolled Status: Chronic Comment: dx : last exacerbation : dka : never hypoglycemic episode : 11/22 er visit : never (14) H/O bilateral cataract extraction Status: Inactive (15) H/O colonoscopy Status: Inactive (16) H/O laminectomy Status: Inactive (17) melanoma removal Status: Acute (18) H/O carpal tunnel repair Status: Inactive (19) 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 Diet and food choices remain an issue. Has not changed her eating habits and therefore BG readings have never stabilized. Pt has made choices which have continued to create high BG readings. She is now being prepped for upcoming dialysis. She is doing well with making insulin adjustments and making BG corrections. She is doing fairly well with exercise. (24) Lymphedema of left lower extremity Status: Chronic History of Present Illness Date of Admission: 07/05/20 Chief Complaint: Left lower extremity redness and warmth. The patient is a 80 year old F who presents the emergency room due to worsening left lower extremity redness and warmth. Patient reports leg is painful to the touch as well. Denies fever, chills. Denies nausea, vomiting. Patient was recently discharged 07/02/2020 following treatment for sepsis secondary to UTI. She states her left lower extremity was mildly reddened during her recent hospitalization however over the last few days has significantly worsened. She denies calf pain. Denies injury to left lower extremity. She has a past medical history of type 2 diabetes mellitus, end-stage renal disease on hemodialysis, hypertension, hyperlipidemia, GERD. Past Medical History Past Medical History (Chronic Problems): Chronic Problems (Last Reviewed 06/30/20 @ 09:[address] 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 Continues to use salt as well Hypertension associated with chronic kidney disease due to type 2 diabetes mellitus (Chronic) BP remains elevated. 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 Diet and food choices remain an issue. Has not changed her eating habits and therefore BG readings have never stabilized. Pt has made choices which have continued to create high BG readings. She is now being prepped for upcoming dialysis. She is doing well with making insulin adjustments and making BG corrections. She is doing fairly well with exercise. Lymphedema of left lower extremity (Chronic) Medical History: Medical History (Last Reviewed 06/30/20 @ 09:[address] Tadeo Larsen MD) Carpal tunnel syndrome of left wrist (Chronic) G56.02 Problem with dialysis access (Chronic) T82.898A Chronic renal failure, stage 4 (severe) (Chronic) N18.4 Melanoma (Chronic) C43.9 Carpal tunnel syndrome (Chronic) G56.00 HTN (hypertension) (Chronic) I10 Hyperlipidemia (Chronic) E78.5 Diabetes type 2, uncontrolled (Chronic) E11.65 dx : last exacerbation : dka : never hypoglycemic episode : 11/22 er visit : never Allergies No Known Allergies Allergy (Verified 07/05/20 12:26) Home Medications: Ambulatory Orders Medication Instructions Recorded Fenofibrate 134 mg PO DAILY 03/01/16 aspirin 81 mg tablet,delayed 81 mg PO QDAY 11/09/17 release atorvastatin 40 mg tablet 40 mg PO QHS 11/09/17 ranitidine HCl 150 mg tablet 150 mg PO QDAY 06/18/18 clonidine HCl 0.3 mg tablet 0.3 mg PO BID tab 10/09/18 furosemide 40 mg tablet 40 mg PO BID 10/09/18 Insulin Lispro [Humalog] 20 - 26 unit SQ TIDCM 01/07/19 carvedilol 25 mg tablet 25 mg PO QHS tab 01/29/19 Insulin Glargine [Lantus (BKC)] 45 units SUBCUT QHS 02/11/19 calcium carbonate 500 mg calcium 500 mg PO BID 01/24/20 (1,250 mg) chewable tablet pregabalin 100 mg capsule 100 mg PO QHS cap 01/24/20 Calcium Acetate 667 mg PO TID 06/30/20 Carvedilol [Coreg] 12.5 mg PO DAILY 06/30/20 Cholecalciferol (Vitamin D3) 5,000 unit PO DAILY 06/30/20 [Vitamin D3] Folic Acid/Vit B Complex and C 0.8 mg PO DAILY 06/30/20 [Renal-Shameka Tablet] Surgical History: Surgical History (Last Reviewed 07/05/20 @ 16:01 by MARIBELL Williamson) Hx of arteriovenostomy for renal dialysis (Chronic) Z99.2 01/14/19 Fistulagram- 02/14/19 S/P CECILIO-BSO (Chronic) Z90.710, Z90.722, Z90.79 H/O bilateral cataract extraction (Inactive) Z98.41, Z98.42 H/O colonoscopy (Inactive) Z98.890 H/O laminectomy (Inactive) Z98.890 melanoma removal (Acute) H/O carpal tunnel repair (Inactive) Z98.890 Surgical History: - - Lymph node resection L groin Psychiatric History: No pertinent psych hx HOME COMPANION History: No pertinent HOME COMPANION history Lives: Spouse/ Significant Other Smoking Status: Never smoker Alcohol: None Drugs: None - *Family History Maternal Family History: Family History (Last Reviewed 07/05/20 @ 16:01 by MARIBELL Williamson) Mother Diabetes Heart disease Hypertension High cholesterol Seizures Father Diabetes Heart disease High cholesterol Hypertension Kidney disease CVA (cerebral vascular accident) Paternal Family History: Family History (Last Reviewed 07/05/20 @ 16:01 by MARIBELL Williamson) Mother Diabetes Heart disease Hypertension High cholesterol Seizures Father Diabetes Heart disease High cholesterol Hypertension Kidney disease CVA (cerebral vascular accident) Review of Systems Constitutional: Denies: Chills, Fever, Weight Change HEENT: Denies: Head Aches, Sinus Congestion, Sinus Drainage Cardiovascular: Denies: Chest Pain, Palpitations Respiratory: Denies: Cough, Shortness of breath at rest, Sputum production Gastrointestinal: Denies: Abdominal Pain, Nausea, Vomiting Genitourinary: Denies: Dysuria Musculoskeletal: Denies: Joint Pain, Joint Tenderness Skin: Reports: - - Left lower extremity redness and warmth Neurological: Denies: Numbness, Tingling, Focal weakness Psychiatric: Denies: Anxiety, Depression, Homicidal Ideations, Suicidal Ideations Hematologic/ Lymphatic: Denies: Easy Bruising, Easy Bleeding VTE Information - Inpt Only VTE Present on Admission: No VTE Mechan Device Prophylaxis: None VTE Pharm Prophylaxis ordered?: Yes - Physical Exam Vitals/I&O's: Vital Signs Temp Pulse Resp BP Pulse Ox 98.2 F 70 16 140/74 H 96 07/05/20 15:44 07/05/20 15:44 07/05/20 15:44 07/05/20 15:44 07/05/20 15:44 Oxygen Delivery Method Room Air Weight: 200 lb Body Mass Index (BMI) 35.4 General: Alert, Oriented x3, Cooperative HEENT: Atraumatic, PERRLA, EOMI, Normocephalic Neck: Supple, No JVD, Negative Carotid Bruits Lungs: Clear to auscultation, Normal air movement Cardiovascular: Regular rate, No murmurs Abdomen: Bowel Sounds Present, Soft, Non Tender, Non-Distended Extremities: No clubbing, No cyanosis, Edema - Left lower extremity Skin: - - Left lower extremity diffuse erythema from ankle to above left knee. No wounds noted. Dry appearing. Musculoskeletal: No Tenderness to Palpation of Joints or Extremities Neurological: Cranial nerves II-XII grossly intact, Neuro grossly intact Psych/Mental Status: Normal Affect, Appropriate Laboratory Results 07/05/20 13:40: WBC 4.7, RBC 3.29 L, Hgb 10.1 L, Hct 31.9 L, MCV 97.0, MCH 30.7, MCHC 31.7 L, RDW Std Deviation 48.7 H, RDW Coeff of Rohan 13.8, Plt Count 109 L, Immature Gran % (Auto) 2.800 H, Neut % (Auto) 63.8, Lymph % (Auto) 19.6, [place] % (Auto) 9.8, Eos % (Auto) 3.6, Baso % (Auto) 0.4, Absolute Neuts (auto) 3.0, Absolute Lymphs (auto) 0.92, Nucleated RBC % 0, Differential Comment SCANNED, ESR 73 H 07/05/20 13:40: PT 14.1, INR 1.1 07/05/20 13:40: Sodium 138, Potassium 5.0, Chloride 105, Carbon Dioxide 23.0, Anion Gap 10, BUN 58 H, Creatinine 4.93 H, Estim Creat Clear Calc 7.28, Est GFR (MDRD) Af Amer 11 L, Est GFR (MDRD) Non-Af 9 L, BUN/Creatinine Ratio 11.8, Glucose 321 H, Calcium 8.0 L, C-React Prot High Sens 95.50 H 07/05/20 14:05: Lactic Acid 1.1 Current Medications Acetaminophen (Tylenol) 650 mg PO Q6H PRN PRN PRN Reason: Pain Score 1-10/Temp > 100.7 F Heparin Sodium (Porcine) (Heparin Na) 5,000 unit SC Q8 [facility] Sodium Chloride () 1,000 mls @ 75 mls/hr IV .[id number] [facility] Stop: 07/06/20 05:11 Cefazolin Sodium () 1 gm in 50 mls @ 100 mls/hr IV Q6 [facility] Insulin Human Lispro (Humalog Kwikpen (Bkc)) 0 unit SC ACHS RAH; Protocol Ondansetron HCl (Zofran) 4 mg IV Q8H PRN PRN PRN Reason: NAUSEA/VOMITING Senna/Docusate Sodium (Senokot-S, Justa-Colace) 2 tablet PO BID PRN PRN PRN Reason: Constipation Assessment/Plan All Active Problems (Last Reviewed 06/30/20 @ 09:[address] Tadeo Larsen MD) melanoma removal (Acute) Sepsis (Resolved) UTI (urinary tract infection) (Resolved) 1. Left lower extremity cellulitis-IV cefazolin. Obtain Doppler left lower extremity. Elevate left lower extremity. 2. Recent sepsis with UTI-resolved. Completed treatment with Cipro. 3. Type 2 diabetes [id number] with sliding scale insulin. Continue home insulin regimen. 4. End-stage renal disease on hemodialysis-Monday, Monday, Monday dialysis schedule. Consult nephrology. Continue Lyrica for neuropathy. 5. Hypertension-stable, continue carvedilol, clonidine. 6. Hyperlipidemia-continue statin, fenofibrate. 7. GERD-continue ranitidine. DVT prophylaxis- Heparin sc This patient was seen by MARIBELL Williamson under the supervision of Dr. Delvalle. <Merle Delvalle - Last Filed: 07/05/20 17:26> History of Present Illness The patient is a 80 year old F [] Past Medical History Medical History: Medical History (Last Reviewed 06/30/20 @ 09:[address] Tadeo Larsen MD) Carpal tunnel syndrome of left wrist (Chronic) G56.02 Problem with dialysis access (Chronic) T82.898A Chronic renal failure, stage 4 (severe) (Chronic) N18.4 Melanoma (Chronic) C43.9 Carpal tunnel syndrome (Chronic) G56.00 HTN (hypertension) (Chronic) I10 Hyperlipidemia (Chronic) E78.5 Diabetes type 2, uncontrolled (Chronic) E11.65 dx : last exacerbation : dka : never hypoglycemic episode : 11/22 er visit : never Allergies No Known Allergies Allergy (Verified 07/05/20 12:26) Surgical History: Surgical History (Last Reviewed 07/05/20 @ 16:01 by MARIBELL Williamson) Hx of arteriovenostomy for renal dialysis (Chronic) Z99.2 01/14/19 Fistulagram- 02/14/19 S/P CECILIO-BSO (Chronic) Z90.710, Z90.722, Z90.79 H/O bilateral cataract extraction (Inactive) Z98.41, Z98.42 H/O colonoscopy (Inactive) Z98.890 H/O laminectomy (Inactive) Z98.890 melanoma removal (Acute) H/O carpal tunnel repair (Inactive) Z98.890 - *Family History Maternal Family History: Family History (Last Reviewed 07/05/20 @ 16:01 by SHERRI WilliamsonC) Mother Diabetes Heart disease Hypertension High cholesterol Seizures Father Diabetes Heart disease High cholesterol Hypertension Kidney disease CVA (cerebral vascular accident) Paternal Family History: Family History (Last Reviewed 07/05/20 @ 16:01 by HSERRI WilliamsonC) Mother Diabetes Heart disease Hypertension High cholesterol Seizures Father Diabetes Heart disease High cholesterol Hypertension Kidney disease CVA (cerebral vascular accident) - Physical Exam Vitals/I&O's: Vital Signs Temp Pulse Resp BP Pulse Ox 98.4 F 63 16 157/70 H 95 07/05/20 16:01 07/05/20 16:01 07/05/20 16:01 07/05/20 16:01 07/05/20 16:01 Oxygen Delivery Method Room Air Weight: 90.9 kg Body Mass Index (BMI) 35.4 Intake and Output for Last 24 Hours 07/03/20 07/04/20 07/05/20 23:59 23:59 23:59 Intake Total 50 / 50 Balance 50 / 50 Laboratory Results 07/05/20 13:40: WBC 4.7, RBC 3.29 L, Hgb 10.1 L, Hct 31.9 L, MCV 97.0, MCH 30.7, MCHC 31.7 L, RDW Std Deviation 48.7 H, RDW Coeff of Rohan 13.8, Plt Count 109 L, Immature Gran % (Auto) 2.800 H, Neut % (Auto) 63.8, Lymph % (Auto) 19.6, [place] % (Auto) 9.8, Eos % (Auto) 3.6, Baso % (Auto) 0.4, Absolute Neuts (auto) 3.0, Absolute Lymphs (auto) 0.92, Nucleated RBC % 0, Differential Comment SCANNED, ESR 73 H 07/05/20 13:40: PT 14.1, INR 1.1 07/05/20 13:40: Sodium 138, Potassium 5.0, Chloride 105, Carbon Dioxide 23.0, Anion Gap 10, BUN 58 H, Creatinine 4.93 H, Estim Creat Clear Calc 7.28, Est GFR (MDRD) Af Amer 11 L, Est GFR (MDRD) Non-Af 9 L, BUN/Creatinine Ratio 11.8, Glucose 321 H, Calcium 8.0 L, C-React Prot High Sens 95.50 H 07/05/20 14:05: Lactic Acid 1.1 Current Medications Acetaminophen (Tylenol) 650 mg PO Q6H PRN PRN PRN Reason: Pain Score 1-10/Temp > 100.7 F Aspirin (Ecotrin) 81 mg PO DAILY [facility] Atorvastatin Calcium (Lipitor) 40 mg PO QHS [facility] Calcium Acetate (Phoslo Gel Cap) 667 mg PO TIDCM [facility] Last Admin: 07/05/20 17:13 Dose: 667 mg Documented by: [facility]cium [facility] ([facility]ums) [address] Last Admin: 07/05/20 17:13 Dose: 500 mg Documented by: Carvedilol (Coreg) 25 mg PO QHS [facility] Carvedilol (Coreg) 12.5 mg PO DAILY [facility] Cholecalciferol (Vitamin D (25mcg)) 5,000 unit PO DAILY [facility] Clonidine (Catapres) 0.3 mg PO BID [facility] Famotidine (Pepcid) 20 mg PO DAILY [facility] Fenofibrate (Tricor) 145 mg PO DAILYCM [facility] Furosemide (Lasix) 40 mg PO BIDLX [facility] Gabapentin (Neurontin) 100 mg PO DAILY [facility] Heparin Sodium (Porcine) (Heparin Na) 5,000 unit SC Q8 [facility] Sodium Chloride () 1,000 mls @ 75 mls/hr IV .[id number] [facility] Stop: 07/06/20 05:11 Last Admin: 07/05/20 16:30 Dose: 75 mls/hr Documented by: Cefazolin Sodium () 1 gm in 50 mls @ 100 mls/hr IV Q6 [facility] Insulin Glargine (Lantus (Bkc)) 45 units SC QHS [facility] Insulin Human Lispro (Humalog Kwikpen (Bkc)) 0 unit SC ACHS [facility]; Protocol Last Admin: 07/05/20 17:12 Dose: 3 u Documented by: Multivit/Ca Carb/B Cmplx/FA/Prenat (Nephrocaps, Renaphro) 1 capsule PO DAILYCM [facility] Ondansetron HCl (Zofran) 4 mg IV Q8H PRN PRN PRN Reason: NAUSEA/VOMITING Pregabalin (Lyrica) 100 mg PO QHS [facility] Senna/Docusate Sodium (Senokot-S, Justa-Colace) 2 tablet PO BID PRN PRN PRN Reason: Constipation Sodium Chloride () 10 - 40 ml IV UD PRN PRN Reason: SALINE FLUSH Assessment/Plan This patient was seen in conjunction with Caro Castaneda SCORING MACHINE OPERATOR. I have independently interviewed and examined the patient and reviewed pertinent historical, laboratory, and other data. Please refer to her note for patient's presentation, findings, and recommendations. 1-year-old female with past medical history of ESRD on hemodialysis who was recently discharged after admission for severe sepsis secondary to UTI on 07/02/20 comes in with progressive left lower extremity redness and swelling ongoing. Patient stated that prior to discharge she noticed some redness but was not bad. She completed her Cipro for her UTI at home. She however noticed over the last 2 days that the redness in the lower extremity was progressively worse and was warm to touch. She came to the emergency department insistence of the . Vitals are stable. Admitting blood work WBC count of 4.7, hemoglobin 10.0, platelet count 109, her chemistries are stable. Lactic Acid is 1.1 Vitals were reviewed -stable Physical Exam: Gen: Comfortable, obese, not pale, not jaundiced, alert oriented x3 CVS:HS I +II, regular, no murmurs RESP: Clinically clear to auscultation GI: BS present and normal, nontender, no palpable organs EXT: Left lower extremity edema and redness with differential warmth, to the left lower knee, some patchy evidence of spread starting in the anterior left thigh Labs reviewed: ASSESSMENT: 1. Left lower extremity cellulitis 2. Recent severe sepsis secondary to UTI 3. Type II DM 4. ESRD on hemodialysis 5. Hypertension 6. Hyperlipidemia 7. GERD 8. Obesity Code Status is DNR [facility] Meds reviewed Plan: We will continue on IV cefazolin, elevate lower extremity Nephrology consult Continue with home medications Blood glucose check with insulin sliding scale. Inpatient E&M: [id number] [facility] Hosp L3
[2020-07-05 16:01] VITALS: BP 157/70; PULSE 63; RESP 16; TEMP 36.9; O2SAT 95
[2020-07-05] MEDS: 0.9% Normal Saline 1,000 ML 75 ML IV (16:30)
[2020-07-05 16:31] VITALS: BMI 35.4
[2020-07-05 16:39] VITALS: BMI 35.5
[2020-07-05] MEDS: Insulin Lispro 100 UNIT/ML INSULN.PEN SC ×2 (17:12→21:50)
[2020-07-05] MEDS: Calcium Acetate 667 MG Capsule PO (17:13)
[2020-07-05] MEDS: Calcium Carbonate 500 MG Tablet PO (17:13)
[2020-07-05] MEDS: Furosemide 40 MG Tablet PO (17:20)
[2020-07-05 17:36] LABS: Bedside Glucose 317 mg/dL (70-110)
[2020-07-05 21:29] VITALS: BP 170/61; PULSE 72; RESP 18; TEMP 36.8; O2SAT 97
[2020-07-05] MEDS: Heparin Injection (Vial) 5,000 UNIT/ML VIAL 5000 UNIT SC (21:50)
[2020-07-05] MEDS: Atorvastatin Calcium 40 MG Tablet PO (21:53)
[2020-07-05] MEDS: cloNIDine HCl 0.2 MG Tablet 0.3 MG PO (21:53)
[2020-07-05] MEDS: Carvedilol 25 MG Tablet PO (21:53)
[2020-07-05] MEDS: Pregabalin 50 MG Capsule 100 MG PO (21:54)
[2020-07-05 22:55] LABS: Bedside Glucose 377 mg/dL (70-110)
[2020-07-06] MEDS: Cefazolin 1 GM/50 ML BAG IV ×2 (00:23→06:51)
[2020-07-06 03:32] VITALS: BP 143/51; PULSE 70; RESP 18; TEMP 37.1; O2SAT 96
[2020-07-06 06:10] LABS: Absolute Neutrophil Count 2.2 X10^3/uL (2.0-7.7); Basophil# 0.01 X10^3/uL; Basophil% 0.2 % (0-1); Eosinophil# 0.25 X10^3/uL; Eosinophils% 5.9 % (0-5); Hematocrit 30.2 % (37-47); Hemoglobin 9.7 g/dL (12.0-15.0); Lymphocyte % 28.4 % (19-41); Mean Corp Hgb Conc 32.1 g/dL (32-36); Mean Corpuscular Hgb 31.2 pg (27.0-32.0); Mean Corpuscular Volume 97.1 fL (81-99); Mean Platelet Vol. 12.8 fl (6.2-12.0); Monocyte# 0.42 X10^3/uL; NRBC Flagged by Analyzer 0 % (0-5); Neutrophil % 52.2 % (47-70); POSITIVE COUNT YES; RBC Distribution Width CV 13.8 % (11.6-14.6); RBC Distribution Width SD 48.4 fl (35.1-43.9); Red Blood Count 3.11 M/mm3 (4.2-5.4); White Blood Count 4.2 K/mm3 (4.4-11.0)
[2020-07-06 06:11] LABS: Differential Indicated SCAN CRITERIA MET
[2020-07-06 06:30] LABS: ALB/GLOB Ratio 0.6 RATIO (0.9-2.4); AST(SGOT) 23 U/L (15-37); Alanine Aminotransfer ALT/SGPT 28 U/L (13-56); Albumin, Serum 2.3 g/dL (3.2-5.0); Alkaline Phosphatase 66 U/L (45-117); Anion Gap 8 (5-15); BUN 61 mg/dL (7-18); BUN/Creat Ratio 11.8 RATIO (10-20); Calcium,Total 8.1 mg/dL (8.5-10.1); Chloride 106 mmol/L (98-107); Creatinine, Serum 5.16 mg/dL (0.55-1.02); EST Glomerular Filtration Rate 9 mL/min (>60); Est Glom Filt Rate - Afr Amer 10 mL/min (>60); Estimated Creatinine Clearance 6.95 ml/min; Glucose 190 mg/dL (74-106); Potassium 3.7 mmol/L (3.5-5.1); Protein, Total 6.3 g/dL (6.4-8.2); Sodium Level 139 mmol/L (136-145)
[2020-07-06] MEDS: Insulin Lispro 100 UNIT/ML INSULN.PEN SC ×4 (06:56→22:24)
[2020-07-06 07:01] LABS: Differential Comment SCANNED; Platelet Estimate ADEQUATE (ADEQ)
[2020-07-06 07:16] LABS: Bedside Glucose 171 mg/dL (70-110)
[2020-07-06 07:35] VITALS: BP 119/92; PULSE 71; RESP 16; TEMP 36.8; O2SAT 94
[2020-07-06] MEDS: Aspirin E.C. 81 MG Tablet PO (07:36)
[2020-07-06] MEDS: Folic Acid/Vitamin B Comp W-C 1 Capsule 1 CAP PO (07:36)
[2020-07-06] MEDS: Fenofibrate 145 MG Tablet PO (07:37)
[2020-07-06] MEDS: cloNIDine HCl 0.2 MG Tablet 0.3 MG PO ×2 (07:37→22:19)
[2020-07-06] MEDS: Calcium Acetate 667 MG Capsule PO ×2 (07:37→16:38)
[2020-07-06] MEDS: Calcium Carbonate 500 MG Tablet PO ×2 (07:37→16:38)
[2020-07-06] MEDS: Carvedilol 12.5 MG Tablet PO (07:38)
[2020-07-06] MEDS: Gabapentin 100 MG Capsule PO (07:38)
[2020-07-06] MEDS: Famotidine 20 MG Tablet PO (07:38)
--- NOTE | 2020-07-06 08:37 | NURSING ---
acute dialysis nurse called and confirmed they are aware of patients admittance and gets dialysis normally on monday.
--- NOTE | 2020-07-06 11:00 | NURSING ---
Blood sugar 207, patient receiving dialysis and is going to eat later, no coverage given at this time per patient request.
[2020-07-06 11:01] LABS: Bedside Glucose 207 mg/dL (70-110)
--- NOTE | 2020-07-06 11:46 | PN_ITS ---
<Caro Castaneda - Last Filed: 07/06/20 11:50> Patient Problems: Active and Suspected Problems (Last Reviewed 06/30/20 @ 09:[address] Tadeo Larsen MD) Cellulitis of leg, left (Acute) Subjective: Patient seen and examined. Left lower extremity redness and pain improving. Denies fever, chills. Denies other current complaints. - Physical Exam Vitals/I&O's: Vital Signs Temp Pulse Resp BP Pulse Ox 98.2 F 71 16 119/92 H 94 07/06/20 07:35 07/06/20 07:35 07/06/20 07:35 07/06/20 07:35 07/06/20 07:35 Oxygen Delivery Method Room Air Weight: 200 lb 2.876 oz Body Mass Index (BMI) 35.4 Intake and Output for Last 24 Hours 07/04/20 07/05/20 07/06/20 23:59 23:59 23:59 Intake Total 50 / 50 2152.25 / 2152.25 Output Total 900 / 900 Balance 50 / 50 1252.25 / 1252.25 General: Alert, Oriented x3, Cooperative HEENT: Atraumatic, PERRLA, EOMI, Normocephalic Neck: Supple, No JVD, Negative Carotid Bruits Lungs: Clear to auscultation, Normal air movement Cardiovascular: Regular rate, No murmurs Abdomen: Bowel Sounds Present, Soft, Non Tender, Non-Distended Extremities: No clubbing, No cyanosis, Edema - Left lower extremity Skin: - - Left lower extremity erythema slightly improved from yesterday. Musculoskeletal: No Tenderness to Palpation of Joints or Extremities Neurological: Cranial nerves II-XII grossly intact, Neuro grossly intact Psych/Mental Status: Normal Affect, Appropriate Laboratory Results 07/05/20 13:40: WBC 4.7, RBC 3.29 L, Hgb 10.1 L, Hct 31.9 L, MCV 97.0, MCH 30.7, MCHC 31.7 L, RDW Std Deviation 48.7 H, RDW Coeff of Rohan 13.8, Plt Count 109 L, Immature Gran % (Auto) 2.800 H, Neut % (Auto) 63.8, Lymph % (Auto) 19.6, [place] % (Auto) 9.8, Eos % (Auto) 3.6, Baso % (Auto) 0.4, Absolute Neuts (auto) 3.0, Absolute Lymphs (auto) 0.92, Nucleated RBC % 0, Differential Comment SCANNED, ESR 73 H 07/05/20 13:40: PT 14.1, INR 1.1 07/05/20 13:40: Sodium 138, Potassium 5.0, Chloride 105, Carbon Dioxide 23.0, Anion Gap 10, BUN 58 H, Creatinine 4.93 H, Estim Creat Clear Calc 7.28, Est GFR (MDRD) Af Amer 11 L, Est GFR (MDRD) Non-Af 9 L, BUN/Creatinine Ratio 11.8, Glucose 321 H, Calcium 8.0 L, C-React Prot High Sens 95.50 H 07/05/20 14:05: Lactic Acid 1.1 07/05/20 17:05: POC Glucose 317 H 07/05/20 21:41: POC Glucose 377 H 07/06/20 05:45: WBC 4.2 L, RBC 3.11 L, Hgb 9.7 L, Hct 30.2 L, MCV 97.1, MCH 31.2, MCHC 32.1, RDW Std Deviation 48.4 H, RDW Coeff of Rohan 13.8, Plt Count , MPV 12.8 H, Immature Gran % (Auto) 3.300 H, Neut % (Auto) 52.2, Lymph % (Auto) 28.4, [place] % (Auto) 10.0, Eos % (Auto) 5.9 H, Baso % (Auto) 0.2, Absolute Neuts (auto) 2.2, Absolute Lymphs (auto) 1.20, Nucleated RBC % 0, Differential Comment SCANNED, Platelet Estimate ADEQUATE 07/06/20 05:45: Sodium 139, Potassium 3.7, Chloride 106, Carbon Dioxide 25.0, Anion Gap 8, BUN 61 H, Creatinine 5.16 H, Estim Creat Clear Calc 6.95, Est GFR (MDRD) Af Amer 10 L, Est GFR (MDRD) Non-Af 9 L, BUN/Creatinine Ratio 11.8, Glucose 190 H, Calcium 8.1 L, Total Bilirubin 0.40, AST 23, ALT 28, Alkaline Phosphatase 66, Total Protein 6.3 L, Albumin 2.3 L, Globulin 4.0, Albumin/Globulin Ratio 0.6 L 07/06/20 06:54: POC Glucose 171 H 07/06/20 10:56: POC Glucose 207 H Current Medications Acetaminophen (Tylenol) 650 mg PO Q6H PRN PRN PRN Reason: Pain Score 1-10/Temp > 100.7 F Aspirin (Ecotrin) 81 mg PO DAILY [facility] Last Admin: 07/06/20 07:36 Dose: 81 mg Documented by: Atorvastatin Calcium (Lipitor) 40 mg PO QHS [facility] Last Admin: 07/05/20 21:53 Dose: 40 mg Documented by: Calcium Acetate (Phoslo Gel Cap) 667 mg PO TIDCM [facility] Last Admin: 07/06/20 07:37 Dose: 667 mg Documented by: Calcium [facility] ([facility]) [facility] Last Admin: 07/06/20 07:37 Dose: 500 mg Documented by: Carvedilol (Coreg) 25 mg PO QHS [facility] Last Admin: 07/05/20 21:53 Dose: 25 mg Documented by: Carvedilol (Coreg) 12.5 mg PO DAILY [facility] Last Admin: 07/06/20 07:38 Dose: 12.5 mg Documented by: Cholecalciferol (Vitamin D (25mcg)) 5,000 unit PO DAILY [facility] Last Admin: 07/06/20 07:36 Dose: 5,000 unit Documented by: Clonidine (Catapres) 0.3 mg PO BID [facility] Last Admin: 07/06/20 07:37 Dose: 0.3 mg Documented by: Famotidine (Pepcid) 20 mg PO DAILY [facility] Last Admin: 07/06/20 07:38 Dose: 20 mg Documented by: Fenofibrate (Tricor) [facility] Last Admin: 07/06/20 07:37 Dose: 145 mg Documented by: Furosemide (Lasix) 40 mg PO SuSa@1000,1800 [facility] Gabapentin (Neurontin) 100 mg PO DAILY [facility] Last Admin: 07/06/20 07:38 Dose: 100 mg Documented by: Heparin Sodium (Porcine) (Heparin Na) 5,000 unit SC Q8 [facility] Last Admin: 07/06/20 06:50 Dose: Not Given Documented by: Cefazolin Sodium () 1 gm in 50 mls @ 100 mls/hr IV Q6 [facility] Last Infusion: 07/06/20 07:23 Dose: Infused Documented by: Sodium Chloride () 250 mls @ 15 mls/hr IV .[id number] PRN PRN Reason: Saline Flush Last Infusion: 07/06/20 08:21 Dose: Infused Documented by: Sodium Chloride () 250 mls @ 15 mls/hr IV .[id number] PRN PRN Reason: Additional IVPB Infusion Insulin Glargine (Lantus ([facility])) 45 units SC QHS [facility] Last Admin: 07/05/20 21:51 Dose: 45 u Documented by: Insulin Human Lispro (Humalog Kwikpen ([facility])) [facility]; Protocol Last Admin: 07/06/20 06:56 Dose: 1 u Documented by: Multivit/Ca Carb/B Cmplx/FA/Prenat (Nephrocaps, Renaphro) [facility] Last Admin: 07/06/20 07:36 Dose: 1 capsule Documented by: Ondansetron HCl (Zofran) 4 mg IV Q8H PRN PRN PRN Reason: NAUSEA/VOMITING Pregabalin (Lyrica) 100 mg PO QHS [facility] Last Admin: 07/05/20 21:54 Dose: 100 mg Documented by: Senna/Docusate Sodium (Senokot-S, Justa-Colace) 2 tablet PO BID PRN PRN PRN Reason: Constipation Sodium Chloride () 10 - 40 ml IV UD PRN PRN Reason: SALINE FLUSH Medical Necessity - Tobacco Use Smoking Status: Never smoker Assessment/Plan All Active Problems (Last Reviewed 06/30/20 @ 09:[address] Tadeo Larsen MD) Cellulitis of leg, left (Acute) melanoma removal (Acute) Sepsis (Resolved) UTI (urinary tract infection) (Resolved) 1. Left lower extremity cellulitis-IV cefazolin. Doppler of left lower extremity pending. Elevate left lower extremity. PRN pain regimen. 2. Recent sepsis with UTI-resolved. Completed treatment with Cipro. 3. Type 2 diabetes [id number] with sliding scale insulin. Continue home insulin regimen. 4. End-stage renal disease on hemodialysis-Monday, Monday, Monday dialysis schedule. Consult nephrology. Continue Lyrica for neuropathy. 5. Hypertension-stable, continue carvedilol, clonidine. 6. Hyperlipidemia-continue statin, fenofibrate. 7. GERD-continue ranitidine. DVT prophylaxis- Heparin sc This patient was seen by MARIBELL Williamson under the supervision of Dr. Delvalle. <Merle Delvalle - Last Filed: 07/06/20 12:49> - Physical Exam Vitals/I&O's: Vital Signs Temp Pulse Resp BP Pulse Ox 98.2 F 71 16 119/92 H 94 07/06/20 07:35 07/06/20 07:35 07/06/20 07:35 07/06/20 07:35 07/06/20 07:35 Oxygen Delivery Method Room Air Weight: 90.8 kg Body Mass Index (BMI) 35.4 Intake and Output for Last 24 Hours 07/04/20 07/05/20 07/06/20 23:59 23:59 23:59 Intake Total 50 / 50 2152.25 / 2152.25 Output Total 900 / 900 Balance 50 / 50 1252.25 / 1252.25 Laboratory Results 07/05/20 13:40: WBC 4.7, RBC 3.29 L, Hgb 10.1 L, Hct 31.9 L, MCV 97.0, MCH 30.7, MCHC 31.7 L, RDW Std Deviation 48.7 H, RDW Coeff of Rohan 13.8, Plt Count 109 L, Immature Gran % (Auto) 2.800 H, Neut % (Auto) 63.8, Lymph % (Auto) 19.6, [place] % (Auto) 9.8, Eos % (Auto) 3.6, Baso % (Auto) 0.4, Absolute Neuts (auto) 3.0, Absolute Lymphs (auto) 0.92, Nucleated RBC % 0, Differential Comment SCANNED, ESR 73 H 07/05/20 13:40: PT 14.1, INR 1.1 07/05/20 13:40: Sodium 138, Potassium 5.0, Chloride 105, Carbon Dioxide 23.0, Anion Gap 10, BUN 58 H, Creatinine 4.93 H, Estim Creat Clear Calc 7.28, Est GFR (MDRD) Af Amer 11 L, Est GFR (MDRD) Non-Af 9 L, BUN/Creatinine Ratio 11.8, Glucose 321 H, Calcium 8.0 L, C-React Prot High Sens 95.50 H 07/05/20 14:05: Lactic Acid 1.1 07/05/20 17:05: POC Glucose 317 H 07/05/20 21:41: POC Glucose 377 H 07/06/20 05:45: WBC 4.2 L, RBC 3.11 L, Hgb 9.7 L, Hct 30.2 L, MCV 97.1, MCH 31.2, MCHC 32.1, RDW Std Deviation 48.4 H, RDW Coeff of Rohan 13.8, Plt Count , MPV 12.8 H, Immature Gran % (Auto) 3.300 H, Neut % (Auto) 52.2, Lymph % (Auto) 28.4, [place] % (Auto) 10.0, Eos % (Auto) 5.9 H, Baso % (Auto) 0.2, Absolute Neuts (auto) 2.2, Absolute Lymphs (auto) 1.20, Nucleated RBC % 0, Differential Comment SCANNED, Platelet Estimate ADEQUATE 07/06/20 05:45: Sodium 139, Potassium 3.7, Chloride 106, Carbon Dioxide 25.0, Anion Gap 8, BUN 61 H, Creatinine 5.16 H, Estim Creat Clear Calc 6.95, Est GFR (MDRD) Af Amer 10 L, Est GFR (MDRD) Non-Af 9 L, BUN/Creatinine Ratio 11.8, Glucose 190 H, Calcium 8.1 L, Total Bilirubin 0.40, AST 23, ALT 28, Alkaline Phosphatase 66, Total Protein 6.3 L, Albumin 2.3 L, Globulin 4.0, Albumin/Globulin Ratio 0.6 L 07/06/20 06:54: POC Glucose 171 H 07/06/20 10:56: POC Glucose 207 H Current Medications Acetaminophen (Tylenol) 650 mg PO Q6H PRN PRN PRN Reason: Pain Score 1-10/Temp > 100.7 F Aspirin (Ecotrin) 81 mg PO DAILY [facility] Last Admin: 07/06/20 07:36 Dose: 81 mg Documented by: Atorvastatin Calcium (Lipitor) 40 mg PO QHS [facility] Last Admin: 07/05/20 21:53 Dose: 40 mg Documented by: Calcium Acetate (Phoslo Gel Cap) 667 mg PO TIDCM [facility] Last Admin: 07/06/20 07:37 Dose: 667 mg Documented by: Calcium Carbonate (Tums) 500 mg PO BIDCM [facility] Last Admin: 07/06/20 07:37 Dose: 500 mg Documented by: Carvedilol (Coreg) 25 mg PO QHS [facility] Last Admin: 07/05/20 21:53 Dose: 25 mg Documented by: Carvedilol (Coreg) 12.5 mg PO DAILY [facility] Last Admin: 07/06/20 07:38 Dose: 12.5 mg Documented by: Cholecalciferol (Vitamin D (25mcg)) 5,000 unit PO DAILY [facility] Last Admin: 07/06/20 07:36 Dose: 5,000 unit Documented by: Clonidine (Catapres) 0.3 mg PO BID [facility] Last Admin: 07/06/20 07:37 Dose: 0.3 mg Documented by: Famotidine (Pepcid) 20 mg PO DAILY [facility] Last Admin: 07/06/20 07:38 Dose: 20 mg Documented by: Fenofibrate (Tricor) [facility] Last Admin: 07/06/20 07:37 Dose: 145 mg Documented by: Furosemide (Lasix) 40 mg PO SuSa@1000,1800 [facility] Gabapentin (Neurontin) 100 mg PO DAILY [facility] Last Admin: 07/06/20 07:38 Dose: 100 mg Documented by: Heparin Sodium (Porcine) (Heparin Na) 5,000 unit SC Q8 [facility] Last Admin: 07/06/20 06:50 Dose: Not Given Documented by: Cefazolin Sodium () 1 gm in 50 mls @ 100 mls/hr IV Q6 [facility] Last Infusion: 07/06/20 07:23 Dose: Infused Documented by: Sodium Chloride () 250 mls @ 15 mls/hr IV .[id number] PRN PRN Reason: Saline Flush Last Infusion: 07/06/20 08:21 Dose: Infused Documented by: Sodium Chloride () 250 mls @ 15 mls/hr IV .[id number] PRN PRN Reason: Additional IVPB Infusion Insulin Glargine (Lantus (Bk)) 45 units SC QHS [facility] Last Admin: 07/05/20 21:51 Dose: 45 u Documented by: Insulin Human Lispro (Humalog Kwikpen (Bk)) 0 unit SC ACHS [facility]; Protocol Last Admin: 08/31/20 12:22 Dose: 1 u Documented by: Multivit/Ca Carb/B Cmplx/FA/Prenat (Nephrocaps, Renaphro) [facility] Last Admin: 07/06/20 07:36 Dose: 1 capsule Documented by: Ondansetron HCl (Zofran) 4 mg IV Q8H PRN PRN PRN Reason: NAUSEA/VOMITING Pregabalin (Lyrica) 100 mg PO QHS [facility] Last Admin: 07/05/20 21:54 Dose: 100 mg Documented by: Senna/Docusate Sodium (Senokot-S, Justa-Colace) 2 tablet PO BID PRN PRN PRN Reason: Constipation Sodium Chloride () 10 - 40 ml IV UD PRN PRN Reason: SALINE FLUSH Assessment/Plan This patient was seen in conjunction with Caro Castaneda LEARN TO SWIM INSTRUCTOR. I have independently interviewed and examined the patient and reviewed pertinent historical, laboratory, and other data. Please refer to her note for patient's presentation, findings, and recommendations. Patient was seen and examined. She feels improved. Currently on dialysis. Denied any fever or chills. Physical Exam: Gen: Comfortable, obese, not pale, not jaundiced, alert oriented x3 CVS:HS I +II, regular, no murmurs RESP: Clinically clear to auscultation GI: BS present and normal, nontender, no palpable organs EXT: Left lower extremity edema and redness with differential warmth, to the left lower knee, some patchy evidence of spread starting in the anterior left thigh Labs reviewed: ASSESSMENT: 1. Left lower extremity cellulitis 2. Recent severe sepsis secondary to UTI 3. Type II DM 4. ESRD on hemodialysis 5. Hypertension 6. Hyperlipidemia 7. GERD 8. Obesity Meds reviewed Plan: We will continue on IV cefazolin, renal dosed Continue to elevate lower extremity Continue with home medications Inpatient E&M: [id number] [facility] Hosp L2
--- NOTE | 2020-07-06 13:28 | CASEMGMT ---
Addendum entered by Jerry Godinez 07/06/20 13:49: Patient has F/U appointment scheduled with PCP Dr. Dickens on Monday, July 16 @ [id number]. Appt placed in worklist. Original Note: RN CM Readmission Note Previous Admission: 06/30-07/02/2020 Diagnosis: Sepsis, UTI DC Disposition: Home on Cipro 250 mg po BID x 3 days. Current Admission Admission Date: 07/05/2020 Presentation: patient presented to ER with worsening left lower extremity redness, warmth and painful to touch despite being on Cipro po @ home. Cefazolin 1 gm IV ordered. Lactic Acid 1.1. -Patient lives with , no use of ambulatory DME but walker, cane wc available if needed. Chronic hemo dialysis patient @ [facility] in [facility]. DC Plan: anticipate Home on dc with family support. Mary THOMPSON RN ACM
--- NOTE | 2020-07-06 14:01 | DIALYSIS ---
Hemodialysis tx completed x 3.5 hours without complications. Pt tolerated tx well, fluid removed 2,000ml using crit-line monitor. Vitals stable throughout tx. Verbal report given to GEORGE Alicea post tx.
--- NOTE | 2020-07-06 14:05 | CHAPLAIN ---
Type of Pastoral Visit _x__ Initial Visit ___ Follow-up Visit ___ On-call Visit ___ General Patient Visit ___ Spiritual Assessment ___ Family Conference ___ Bereavement ___ Rapid Response ___ Code Blue ___ Other (describe below) Pastoral Care Referral From _x__ Patient ___ Family ___ Nurse ___ Physician ___ Smelter Liner ___ Service Station Manager ___ Other (describe below) Sacrament/Intervention _x__ Active listening ___ Anointing ___ Amish ___ Bereavement ___ Communion ___ Reyna exploration ___ ___ Life review ___ Prayer ___ Reconciliation ___ Sacrament of Sick ___ Supportive presence ___ Wedding ___ Other (describe below) Pastoral Comments patient is receiving dialysis and is alert; spouse of pt is with her; both are welcoming and talkative; pt indicates that her day is full with tests and that she is doing ok with it all so far; offered future support as desired
--- NOTE | 2020-07-06 14:55 | PCM.CONS.R ---
Problem List (1) ESRD (end stage renal disease) on dialysis Status: Chronic Consultation - Renal 07/06/20 PCP/ Referring MD: Requesting physician: [] Primary care physician: Dr. Gabriela Dickens MD Reason for Consultation:: ESRD - History of Present Illness History of Present Illness: The patient is a 80 year old F with known history of ESRD on HD MWF schedule. last HD was monday. recently admitted with fever, UTI. now admitted with LLE cellulitis, access is left arm AVF. no complaints today [] - Allergies Allergies: Allergies No Known Allergies Allergy (Verified 07/05/20 12:26) - Current Medications Current Medications: Current Medications Acetaminophen (Tylenol) 650 mg PO Q6H PRN PRN PRN Reason: Pain Score 1-10/Temp > 100.7 F Aspirin (Ecotrin) 81 mg PO DAILY [facility] Last Admin: 07/06/20 07:36 Dose: 81 mg Documented by: Atorvastatin Calcium (Lipitor) 40 mg PO QHS [facility] Last Admin: 07/05/20 21:53 Dose: 40 mg Documented by: Calcium Acetate (Phoslo Gel Cap) 667 mg PO TIDCM [facility] Last Admin: 07/06/20 12:44 Dose: Not Given Documented by: [facility] Last Admin: 07/06/20 07:37 Dose: 500 mg Documented by: Carvedilol (Coreg) 25 mg PO QHS [facility] Last Admin: 07/05/20 21:53 Dose: 25 mg Documented by: Carvedilol (Coreg) 12.5 mg PO DAILY [facility] Last Admin: 07/06/20 07:38 Dose: 12.5 mg Documented by: Cholecalciferol (Vitamin D (25mcg)) 5,000 unit PO DAILY [facility] Last Admin: 07/06/20 07:36 Dose: 5,000 unit Documented by: Clonidine (Catapres) 0.3 mg PO BID [facility] Last Admin: 07/06/20 07:37 Dose: 0.3 mg Documented by: Famotidine (Pepcid) 20 mg PO DAILY [facility] Last Admin: 07/06/20 07:38 Dose: 20 mg Documented by: Fenofibrate (Tricor) [facility] Last Admin: 07/06/20 07:37 Dose: 145 mg Documented by: Furosemide (Lasix) 40 mg PO SuSa@1000,1800 [facility] Gabapentin (Neurontin) 100 mg PO DAILY [facility] Last Admin: 07/06/20 07:38 Dose: 100 mg Documented by: Heparin Sodium (Porcine) (Heparin Na) 5,000 unit SC Q8 [facility] Last Admin: 07/06/20 06:50 Dose: Not Given Documented by: Sodium Chloride () 250 mls @ 15 mls/hr IV .[id number] PRN PRN Reason: Saline Flush Last Infusion: 07/06/20 08:21 Dose: Infused Documented by: Sodium Chloride () 250 mls @ 15 mls/hr IV .[id number] PRN PRN Reason: Additional IVPB Infusion Cefazolin Sodium () 1 gm in 50 mls @ 100 mls/hr IV DAILY [facility] Insulin Glargine (Lantus ([facility])) 45 units SC QHS [facility] Last Admin: 07/05/20 21:51 Dose: 45 u Documented by: Insulin Human Lispro (Humalog Kwikpen ([facility])) 0 unit SC ACHS [facility]; Protocol Last Admin: 07/06/20 12:22 Dose: 1 u Documented by: Multivit/Ca Carb/B Cmplx/FA/Prenat (Nephrocaps, Renaphro) [facility] Last Admin: 07/06/20 07:36 Dose: 1 capsule Documented by: Ondansetron HCl (Zofran) 4 mg IV Q8H PRN PRN PRN Reason: NAUSEA/VOMITING Pregabalin (Lyrica) 100 mg PO QHS [facility] Last Admin: 07/05/20 21:54 Dose: 100 mg Documented by: Senna/Docusate Sodium (Senokot-S, Justa-Colace) 2 tablet PO BID PRN PRN PRN Reason: Constipation Sodium Chloride () 10 - 40 ml IV UD PRN PRN Reason: SALINE FLUSH - Past Medical History Past Medical History (Chronic Problems): Chronic Problems (Last Reviewed 06/30/20 @ 09:[address] 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 Continues to use salt as well Hypertension associated with chronic kidney disease due to type 2 diabetes mellitus (Chronic) BP remains elevated. 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 Diet and food choices remain an issue. Has not changed her eating habits and therefore BG readings have never stabilized. Pt has made choices which have continued to create high BG readings. She is now being prepped for upcoming dialysis. She is doing well with making insulin adjustments and making BG corrections. She is doing fairly well with exercise. Lymphedema of left lower extremity (Chronic) - Past Surgical History Surgical History: - - Lymph node resection L groin - Social History Smoking Status: Never smoker Alcohol: None Drugs: None - Family History Maternal Family History: Family History (Last Reviewed 07/05/20 @ 16:01 by MARIBELL Escalera) Mother Diabetes Heart disease Hypertension High cholesterol Seizures Father Diabetes Heart disease High cholesterol Hypertension Kidney disease CVA (cerebral vascular accident) Paternal Family History: Family History (Last Reviewed 07/05/20 @ 16:01 by MARIBELL Escalera) Mother Diabetes Heart disease Hypertension High cholesterol Seizures Father Diabetes Heart disease High cholesterol Hypertension Kidney disease CVA (cerebral vascular accident) Review of Systems Constitutional: Denies: Chills, Fever, Weight Change HEENT: Denies: Head Aches, Sinus Congestion, Sinus Drainage Cardiovascular: Denies: Chest Pain, Palpitations Respiratory: Denies: Cough, Shortness of breath at rest, Sputum production Gastrointestinal: Denies: Abdominal Pain, Nausea, Vomiting Genitourinary: Denies: Dysuria Musculoskeletal: Denies: Joint Pain, Joint Tenderness Skin: Denies: Rash, Wounds Neurological: Denies: Numbness, Tingling, Focal weakness Psychiatric: Denies: Anxiety, Depression, Homicidal Ideations, Suicidal Ideations Hematologic/ Lymphatic: Denies: Easy Bruising, Easy Bleeding Patient Problems: Active and Suspected Problems (Last Reviewed 06/30/20 @ 09:[address] Tadeo Larsen MD) Cellulitis of leg, left (Acute) - Physical Exam Vitals/I&O's: Vital Signs Temp Pulse Resp BP Pulse Ox 98.2 F 71 16 119/92 H 94 07/06/20 07:35 07/06/20 07:35 07/06/20 07:35 07/06/20 07:35 07/06/20 07:35 Oxygen Delivery Method Room Air Weight: 90.8 kg Body Mass Index (BMI) 35.4 Intake and Output for Last 24 Hours 07/04/20 07/05/20 07/06/20 23:59 23:59 23:59 Intake Total 50 / 50 2152.25 / 2152.25 Output Total 900 / 900 Balance 50 / 50 1252.25 / 1252.25 General: Alert, Oriented x3, Cooperative HEENT: Atraumatic, PERRLA, EOMI, Normocephalic Neck: Supple, No JVD, Negative Carotid Bruits Lungs: Clear to auscultation, Normal air movement Cardiovascular: Regular rate, No murmurs Abdomen: Bowel Sounds Present, Soft, Non Tender Extremities: No edema, Capillary Refill Less than 3 Seconds Skin: No rashes - LLE rash, No breakdown Musculoskeletal: No Tenderness to Palpation of Joints or Extremities Neurological: Cranial nerves II-XII grossly intact Psych/Mental Status: Normal Affect, Appropriate Laboratory Results 07/05/20 17:05: POC Glucose 317 H 07/05/20 21:41: POC Glucose 377 H 07/06/20 05:45: WBC 4.2 L, RBC 3.11 L, Hgb 9.7 L, Hct 30.2 L, MCV 97.1, MCH 31.2, MCHC 32.1, RDW Std Deviation 48.4 H, RDW Coeff of Rohan 13.8, Plt Count , MPV 12.8 H, Immature Gran % (Auto) 3.300 H, Neut % (Auto) 52.2, Lymph % (Auto) 28.4, [place] % (Auto) 10.0, Eos % (Auto) 5.9 H, Baso % (Auto) 0.2, Absolute Neuts (auto) 2.2, Absolute Lymphs (auto) 1.20, Nucleated RBC % 0, Differential Comment SCANNED, Platelet Estimate ADEQUATE 07/06/20 05:45: Sodium 139, Potassium 3.7, Chloride 106, Carbon Dioxide 25.0, Anion Gap 8, BUN 61 H, Creatinine 5.16 H, Estim Creat Clear Calc 6.95, Est GFR (MDRD) Af Amer 10 L, Est GFR (MDRD) Non-Af 9 L, BUN/Creatinine Ratio 11.8, Glucose 190 H, Calcium 8.1 L, Total Bilirubin 0.40, AST 23, ALT 28, Alkaline Phosphatase 66, Total Protein 6.3 L, Albumin 2.3 L, Globulin 4.0, Albumin/Globulin Ratio 0.6 L 07/06/20 06:54: POC Glucose 171 H 07/06/20 10:56: POC Glucose 207 H Current Medications Acetaminophen (Tylenol) 650 mg PO Q6H PRN PRN PRN Reason: Pain Score 1-10/Temp > 100.7 F Aspirin (Ecotrin) 81 mg PO DAILY [facility] Last Admin: 07/06/20 07:36 Dose: 81 mg Documented by: Atorvastatin Calcium (Lipitor) 40 mg PO QHS [facility] Last Admin: 07/05/20 21:53 Dose: 40 mg Documented by: Calcium Acetate (Phoslo Gel Cap) 667 mg PO TIDCM [facility] Last Admin: 07/06/20 12:44 Dose: Not Given Documented by: Calcium Carbonate (Tums) 500 mg PO BIDCM [facility] Last Admin: 07/06/20 07:37 Dose: 500 mg Documented by: Carvedilol (Coreg) 25 mg PO QHS [facility] Last Admin: 07/05/20 21:53 Dose: 25 mg Documented by: Carvedilol (Coreg) 12.5 mg PO DAILY [facility] Last Admin: 07/06/20 07:38 Dose: 12.5 mg Documented by: Cholecalciferol (Vitamin D (25mcg)) 5,000 unit PO DAILY [facility] Last Admin: 07/06/20 07:36 Dose: 5,000 unit Documented by: Clonidine (Catapres) 0.3 mg PO BID [facility] Last Admin: 07/06/20 07:37 Dose: 0.3 mg Documented by: Famotidine (Pepcid) 20 mg PO DAILY [facility] Last Admin: 07/06/20 07:38 Dose: 20 mg Documented by: Fenofibrate (Tricor) 145 [facility] Last Admin: 07/06/20 07:37 Dose: 145 mg Documented by: Furosemide (Lasix) 40 mg PO SuSa@1000,1800 [facility] Gabapentin (Neurontin) 100 mg PO DAILY [facility] Last Admin: 07/06/20 07:38 Dose: 100 mg Documented by: Heparin Sodium (Porcine) (Heparin Na) 5,000 unit SC Q8 [facility] Last Admin: 07/06/20 06:50 Dose: Not Given Documented by: Sodium Chloride () 250 mls @ 15 mls/hr IV .[id number] PRN PRN Reason: Saline Flush Last Infusion: 07/06/20 08:21 Dose: Infused Documented by: Sodium Chloride () 250 mls @ 15 mls/hr IV .[id number] PRN PRN Reason: Additional IVPB Infusion Cefazolin Sodium () 1 gm in 50 mls @ 100 mls/hr IV DAILY [facility] Insulin Glargine (Lantus (Bk)) 45 units SC QHS [facility] Last Admin: 07/05/20 21:51 Dose: 45 u Documented by: Insulin Human Lispro (Humalog Kwikpen (Bk)) 0 unit SC ACHS [facility]; Protocol Last Admin: 07/06/20 12:22 Dose: 1 u Documented by: Multivit/Ca Carb/B Cmplx/FA/Prenat (Nephrocaps, Renaphro) [facility] Last Admin: 07/06/20 07:36 Dose: 1 capsule Documented by: Ondansetron HCl (Zofran) 4 mg IV Q8H PRN PRN PRN Reason: NAUSEA/VOMITING Pregabalin (Lyrica) 100 mg PO QHS [facility] Last Admin: 07/05/20 21:54 Dose: 100 mg Documented by: Senna/Docusate Sodium (Senokot-S, Justa-Colace) 2 tablet PO BID PRN PRN PRN Reason: Constipation Sodium Chloride () 10 - 40 ml IV UD PRN PRN Reason: SALINE FLUSH Assessment/Plan All Active Problems (Last Reviewed 06/30/20 @ 09:[address] Tadeo Larsen MD) Cellulitis of leg, left (Acute) melanoma removal (Acute) Sepsis (Resolved) UTI (urinary tract infection) (Resolved) ESRD. HD today. see orders/flowsheets Anemia. gets JUSTIN with HD. continue same orders LLE cellulitis. on cefazolin as per primary
[2020-07-06 14:57] VITALS: BP 137/63; PULSE 70; RESP 18; TEMP 36.8; O2SAT 92
[2020-07-06 16:46] LABS: Bedside Glucose 289 mg/dL (70-110)
[2020-07-06 22:07] VITALS: BP 161/48; PULSE 67; RESP 18; TEMP 37.2; O2SAT 95
[2020-07-06] MEDS: Atorvastatin Calcium 40 MG Tablet PO (22:17)
[2020-07-06] MEDS: Carvedilol 25 MG Tablet PO (22:18)
[2020-07-06] MEDS: Pregabalin 50 MG Capsule 100 MG PO (22:19)
[2020-07-06] MEDS: Heparin Injection (Vial) 5,000 UNIT/ML VIAL 5000 UNIT SC (22:31)
[2020-07-06 23:36] LABS: Bedside Glucose 299 mg/dL (70-110)
[2020-07-07 05:03] VITALS: BP 122/43; PULSE 66; RESP 18; TEMP 36.3; O2SAT 94
[2020-07-07 06:24] LABS: Anion Gap 7 (5-15); BUN 39 mg/dL (7-18); BUN/Creat Ratio 10.5 RATIO (10-20); Calcium,Total 7.7 mg/dL (8.5-10.1); Chloride 102 mmol/L (98-107); Creatinine, Serum 3.71 mg/dL (0.55-1.02); EST Glomerular Filtration Rate 12 mL/min (>60); Est Glom Filt Rate - Afr Amer 15 mL/min (>60); Estimated Creatinine Clearance 9.67 ml/min; Glucose 89 mg/dL (74-106); Potassium 3.1 mmol/L (3.5-5.1); Sodium Level 138 mmol/L (136-145)
[2020-07-07 06:26] LABS: Mean Corpuscular Volume 94.8 fL (81-99); Platelet Count 178 K/mm3 (150-450); White Blood Count 3.9 K/mm3 (4.4-11.0)
[2020-07-07 06:48] LABS: Red Blood Count 3.25 M/mm3 (4.2-5.4)
[2020-07-07 06:49] LABS: Hematocrit 31.2 % (37-47); Mean Corp Hgb Conc 32.1 g/dL (32-36); Mean Corpuscular Hgb 30.8 pg (27.0-32.0); Mean Platelet Vol. 10.6 fl (6.2-12.0); RBC Distribution Width CV 13.5 % (11.6-14.6); RBC Distribution Width SD 47.7 fl (35.1-43.9)
[2020-07-07] MEDS: Heparin Injection (Vial) 5,000 UNIT/ML VIAL 5000 UNIT SC ×3 (06:54→21:56)
[2020-07-07 07:31] LABS: Bedside Glucose 97 mg/dL (70-110)
[2020-07-07 07:31] LABS: Bedside Glucose 60 mg/dL (70-110)
[2020-07-07 08:37] VITALS: BP 125/41; PULSE 71; RESP 18; TEMP 36.7; O2SAT 94
[2020-07-07] MEDS: Calcium Carbonate 500 MG Tablet PO ×2 (08:39→16:52)
[2020-07-07] MEDS: Gabapentin 100 MG Capsule PO (08:39)
[2020-07-07] MEDS: Fenofibrate 145 MG Tablet PO (08:39)
[2020-07-07] MEDS: Calcium Acetate 667 MG Capsule PO ×3 (08:39→16:52)
[2020-07-07] MEDS: cloNIDine HCl 0.2 MG Tablet 0.3 MG PO ×2 (08:39→21:58)
[2020-07-07] MEDS: Folic Acid/Vitamin B Comp W-C 1 Capsule 1 CAP PO ×2 (08:39→16:51)
[2020-07-07] MEDS: Famotidine 20 MG Tablet PO (08:40)
[2020-07-07] MEDS: Aspirin E.C. 81 MG Tablet PO (08:40)
[2020-07-07] MEDS: Carvedilol 12.5 MG Tablet PO (08:40)
--- NOTE | 2020-07-07 10:08 | PN_ITS ---
<Caro Castaneda - Last Filed: 07/07/20 10:12> Patient Problems: Active and Suspected Problems (Last Reviewed 06/30/20 @ 09:[address] Tadeo Larsen MD) Cellulitis of leg, left (Acute) Subjective: Patient seen and examined. Left lower extremity redness and swelling improved. Denies fever, chills. - Physical Exam Vitals/I&O's: Vital Signs Temp Pulse Resp BP Pulse Ox 98.1 F 71 18 125/41 H 94 07/07/20 08:37 07/07/20 08:37 07/07/20 08:37 07/07/20 08:37 07/07/20 08:37 Oxygen Delivery Method Room Air Weight: 197 lb 4 oz Body Mass Index (BMI) 35.4 Intake and Output for Last 24 Hours 07/05/20 07/06/20 07/07/20 23:59 23:59 23:59 Intake Total 50 / 50 2652.25 / 2652.25 200 / 200 Output Total 900 / 900 100 / 100 Balance 50 / 50 1752.25 / 1752.25 100 / 100 General: Alert, Oriented x3, Cooperative HEENT: Atraumatic, PERRLA, EOMI, Normocephalic Neck: Supple, No JVD, Negative Carotid Bruits Lungs: Clear to auscultation, Normal air movement Cardiovascular: Regular rate, No murmurs Abdomen: Bowel Sounds Present, Soft, Non Tender, Non-Distended Extremities: No clubbing, No cyanosis, Edema - Nonpitting left lower extremity Skin: - - Left lower extremity erythema, improving Musculoskeletal: No Tenderness to Palpation of Joints or Extremities Neurological: Cranial nerves II-XII grossly intact, Neuro grossly intact Psych/Mental Status: Normal Affect, Appropriate Laboratory Results 07/06/20 10:56: POC Glucose 207 H 07/06/20 16:37: POC Glucose 289 H 07/06/20 22:21: POC Glucose 299 H 07/07/20 05:43: WBC 3.9 L, RBC 3.25 L, Hgb 10.0 L, Hct 31.2 L, MCV 94.8, MCH 30.8, MCHC 32.1, RDW Std Deviation 47.7 H, RDW Coeff of Rohan 13.5, Plt Count 178, MPV 10.6 07/07/20 05:43: Sodium 138, Potassium 3.1 L, Chloride 102, Carbon Dioxide 29.0, Anion Gap 7, BUN 39 H, Creatinine 3.71 H, Estim Creat Clear Calc 9.67, Est GFR (MDRD) Af Amer 15 L, Est GFR (MDRD) Non-Af 12 L, BUN/Creatinine Ratio 10.5, Glucose 89, Calcium 7.7 L 07/07/20 06:56: POC Glucose 60 L 07/07/20 07:24: POC Glucose 97 Current Medications Acetaminophen (Tylenol) 650 mg PO Q6H PRN PRN PRN Reason: Pain Score 1-10/Temp > 100.7 F Aspirin (Ecotrin) 81 mg PO DAILY [facility] Last Admin: 07/07/20 08:40 Dose: 81 mg Documented by: Atorvastatin Calcium (Lipitor) 40 mg PO QHS [facility] Last Admin: 07/06/20 22:17 Dose: 40 mg Documented by: Calcium Acetate (Phoslo Gel Cap) [facility] [facility] Admin: 07/07/20 08:39 Dose: 667 mg Documented by: [facility]) [facility] Last Admin: 07/07/20 08:39 Dose: 500 mg Documented by: Carvedilol (Coreg) 25 mg PO QHS [facility] Last Admin: 07/06/20 22:18 Dose: 25 mg Documented by: Carvedilol (Coreg) 12.5 mg PO DAILY [facility] Last Admin: 07/07/20 08:40 Dose: 12.5 mg Documented by: Cholecalciferol (Vitamin D (25mcg)) 5,000 unit PO DAILY [facility] Last Admin: 07/07/20 08:39 Dose: 5,000 unit Documented by: Clonidine (Catapres) 0.3 mg PO BID [facility] Last Admin: 07/07/20 08:39 Dose: 0.3 mg Documented by: Famotidine (Pepcid) 20 mg PO DAILY [facility] Last Admin: 07/07/20 08:40 Dose: 20 mg Documented by: Fenofibrate (Tricor) [facility] Last Admin: 07/07/20 08:39 Dose: 145 mg Documented by: Furosemide (Lasix) 40 mg PO SuSa@1000,1800 [facility] Gabapentin (Neurontin) 100 mg PO DAILY [facility] Last Admin: 07/07/20 08:39 Dose: 100 mg Documented by: Heparin Sodium (Porcine) (Heparin Na) 5,000 unit SC Q8 [facility] Last Admin: 07/07/20 06:54 Dose: 5,000 unit Documented by: Sodium Chloride () 250 mls @ 15 mls/hr IV .[id number] PRN PRN Reason: Saline Flush Last Infusion: 07/06/20 08:21 Dose: Infused Documented by: Sodium Chloride () 250 mls @ 15 mls/hr IV .[id number] PRN PRN Reason: Additional IVPB Infusion Cefazolin Sodium () 1 gm in 50 mls @ 100 mls/hr IV DAILY [facility] Insulin Glargine (Lantus ([facility])) 45 units SC QHS [facility] Last Admin: 07/06/20 22:22 Dose: 45 u Documented by: Insulin Human Lispro (Humalog Kwikpen ([facility])) 0 unit SC ACHS [facility]; Protocol Last Admin: 07/07/20 06:57 Dose: Not Given Documented by: Multivit/Ca Carb/B Cmplx/FA/Prenat (Nephrocaps, Renaphro) 1 capsule PO DAILYCM [facility] Last Admin: 07/07/20 08:39 Dose: 1 capsule Documented by: Ondansetron HCl (Zofran) 4 mg IV Q8H PRN PRN PRN Reason: NAUSEA/VOMITING Pregabalin (Lyrica) 100 mg PO QHS [facility] Last Admin: 07/06/20 22:19 Dose: 100 mg Documented by: Senna/Docusate Sodium (Senokot-S, Justa-Colace) 2 tablet PO BID PRN PRN PRN Reason: Constipation Sodium Chloride () 10 - 40 ml IV UD PRN PRN Reason: SALINE FLUSH Medical Necessity - Tobacco Use Smoking Status: Never smoker Assessment/Plan All Active Problems (Last Reviewed 06/30/20 @ 09:[address] Tadeo Larsen MD) Cellulitis of leg, left (Acute) melanoma removal (Acute) Sepsis (Resolved) UTI (urinary tract infection) (Resolved) 1. Left lower extremity cellulitis-IV cefazolin. Doppler of left lower extremity negative for DVT. Elevate left lower extremity. PRN pain regimen. 2. Recent sepsis with strep agalactiae bacteremia/E. coli UTI-resolved. Completed treatment with Cipro. ID consulted given recent bacteremia. Repeat blood cultures pending. 3. Type 2 diabetes [id number] with sliding scale insulin. Continue home insulin regimen. 4. End-stage renal disease on hemodialysis-Monday, Monday, Monday dialysis schedule. Consult nephrology. Continue Lyrica for neuropathy. 5. Hypertension-stable, continue carvedilol, clonidine. 6. Hyperlipidemia-continue statin, fenofibrate. 7. GERD-continue ranitidine. DVT prophylaxis- Heparin sc This patient was seen by MARIBELL Williamson under the supervision of Dr. Delvalle. <Merle Delvalle - Last Filed: 07/07/20 13:07> - Physical Exam Vitals/I&O's: Vital Signs Temp Pulse Resp BP Pulse Ox 98.1 F 71 18 125/41 H 94 07/07/20 08:37 07/07/20 08:37 07/07/20 08:37 07/07/20 08:37 07/07/20 08:37 Oxygen Delivery Method Room Air Weight: 89.471 kg Body Mass Index (BMI) 35.4 Intake and Output for Last 24 Hours 07/05/20 07/06/20 07/07/20 23:59 23:59 23:59 Intake Total 50 / 50 2652.25 / 2652.25 750 / 750 Output Total 900 / 900 100 / 100 Balance 50 / 50 1752.25 / 1752.25 650 / 650 Laboratory Results 07/06/20 16:37: POC Glucose 289 H 07/06/20 22:21: POC Glucose 299 H 07/07/20 05:43: WBC 3.9 L, RBC 3.25 L, Hgb 10.0 L, Hct 31.2 L, MCV 94.8, MCH 30.8, MCHC 32.1, RDW Std Deviation 47.7 H, RDW Coeff of Rohan 13.5, Plt Count 178, MPV 10.6 07/07/20 05:43: Sodium 138, Potassium 3.1 L, Chloride 102, Carbon Dioxide 29.0, Anion Gap 7, BUN 39 H, Creatinine 3.71 H, Estim Creat Clear Calc 9.67, Est GFR (MDRD) Af Amer 15 L, Est GFR (MDRD) Non-Af 12 L, BUN/Creatinine Ratio 10.5, Glucose 89, Calcium 7.7 L 07/07/20 06:56: POC Glucose 60 L 07/07/20 07:24: POC Glucose 97 07/07/20 11:07: POC Glucose 260 H Current Medications Acetaminophen (Tylenol) 650 mg PO Q6H PRN PRN PRN Reason: Pain Score 1-10/Temp > 100.7 F Aspirin (Ecotrin) 81 mg PO DAILY [facility] Last Admin: 07/07/20 08:40 Dose: 81 mg Documented by: Atorvastatin Calcium (Lipitor) 40 mg PO QHS [facility] Last Admin: 07/06/20 22:17 Dose: 40 mg Documented by: Calcium Acetate (Phoslo Gel Cap) 667 mg PO TIDCM [facility] Last Admin: 07/07/20 11:41 Dose: 667 mg Documented by: Calcium [facility] ([facility]ums) [facility] Last Admin: 07/07/20 08:39 Dose: 500 mg Documented by: Carvedilol (Coreg) 25 mg PO QHS [facility] Last Admin: 07/06/20 22:18 Dose: 25 mg Documented by: Carvedilol (Coreg) 12.5 mg PO DAILY [facility] Last Admin: 07/07/20 08:40 Dose: 12.5 mg Documented by: Cholecalciferol (Vitamin D (25mcg)) 5,000 unit PO DAILY [facility] Last Admin: 07/07/20 08:39 Dose: 5,000 unit Documented by: Clonidine (Catapres) 0.3 mg PO BID [facility] Last Admin: 07/07/20 08:39 Dose: 0.3 mg Documented by: Famotidine (Pepcid) 20 mg PO DAILY [facility] Last Admin: 07/07/20 08:40 Dose: 20 mg Documented by: Fenofibrate (Tricor) [facility] Last Admin: 07/07/20 08:39 Dose: 145 mg Documented by: Furosemide (Lasix) 40 mg PO SuSa@1000,1800 [facility] Gabapentin (Neurontin) 100 mg PO DAILY [facility] Last Admin: 07/07/20 08:39 Dose: 100 mg Documented by: Heparin Sodium (Porcine) (Heparin Na) 5,000 unit SC Q8 [facility] Last Admin: 07/07/20 06:54 Dose: 5,000 unit Documented by: Sodium Chloride () 250 mls @ 15 mls/hr IV .[id number] PRN PRN Reason: Saline Flush Last Admin: 07/07/20 11:05 Dose: 15 mls/hr Documented by: Sodium Chloride () 250 mls @ 15 mls/hr IV .[id number] PRN PRN Reason: Additional IVPB Infusion Cefazolin Sodium () 1 gm in 50 mls @ 100 mls/hr IV DAILY [facility] Last Infusion: 07/07/20 11:33 Dose: Infused Documented by: Insulin Glargine (Lantus ([facility])) 45 units SC QHS [facility] Last Admin: 07/06/20 22:22 Dose: 45 u Documented by: Insulin Human Lispro (Humalog Kwikpen ([facility])) 0 unit SC ACHS [facility]; Protocol Last Admin: 07/07/20 11:07 Dose: 2 u Documented by: Multivit/Ca Carb/B Cmplx/FA/Prenat (Nephrocaps, Renaphro) 1 capsule PO DAILYCM [facility] Last Admin: 07/07/20 08:39 Dose: 1 capsule Documented by: Ondansetron HCl (Zofran) 4 mg IV Q8H PRN PRN PRN Reason: NAUSEA/VOMITING Pregabalin (Lyrica) 100 mg PO QHS [facility] Last Admin: 07/06/20 22:19 Dose: 100 mg Documented by: Senna/Docusate Sodium (Senokot-S, Justa-Colace) 2 tablet PO BID PRN PRN PRN Reason: Constipation Sodium Chloride () 10 - 40 ml IV UD PRN PRN Reason: SALINE FLUSH Last Admin: 07/07/20 11:06 Dose: 10 ml Documented by: Assessment/Plan This patient was seen in conjunction with Caro Castaneda NP. I have independently interviewed and examined the patient and reviewed pertinent historical, laboratory, and other data. Please refer to her note for patient's presentation, findings, and recommendations. Patient was seen and examined. Her left lower leg is improved. No acute events overnight. No fevers. Physical Exam: Gen: Comfortable, obese, not pale, not jaundiced, alert oriented x3 CVS:HS I +II, regular, no murmurs RESP: Clinically clear to auscultation GI: BS present and normal, nontender, no palpable organs EXT: Left lower extremity edema and redness with differential warmth, to the left lower knee, some patchy evidence of spread starting in the anterior left thigh Labs reviewed: ASSESSMENT: 1. Left lower extremity cellulitis 2. Recent severe sepsis secondary to UTI 3. Recent strept agalactiae 4. Type II DM 5. ESRD on hemodialysis 6. Hypertension 7. Hyperlipidemia 8. GERD 9. Obesity Meds reviewed Plan: We will continue on IV cefazolin, renal dosed Continue to elevate lower extremity Continue with home medications Possible DC in am Inpatient E&M: 16127 Subs Hosp L2
--- NOTE | 2020-07-07 10:19 | PCM.HP.ID ---
Problem List (1) Cellulitis of leg, left Status: Acute Reason for Consult: cellulitis Consulted by: Dr. Delvalle History of Present Illness: The patient is a 80 year old F with DM, ESRD, presented with 2 days of LLE cellulitis. Leg became red, swollen, tender to touch. No inciting event. Was admitted last week with uti and bacteremia. Ucx here with ecoli. Bcx at [facility] 06/30 with strep. Discharged 07/02 on cipro. No further fever, no further dysuria, no abd pain, no new complaints at home until leg start to become inflammed. Came to ED, admitted on cefazolin, feeling better, leg much less red. Full ROS performed and neg except as noted above. - Medical History Past Medical History (Chronic Problems): Chronic Problems (Last Reviewed 06/30/20 @ 09:[address] 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 Continues to use salt as well Hypertension associated with chronic kidney disease due to type 2 diabetes mellitus (Chronic) BP remains elevated. 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 Diet and food choices remain an issue. Has not changed her eating habits and therefore BG readings have never stabilized. Pt has made choices which have continued to create high BG readings. She is now being prepped for upcoming dialysis. She is doing well with making insulin adjustments and making BG corrections. She is doing fairly well with exercise. Lymphedema of left lower extremity (Chronic) Allergies/Adverse Reactions: Allergies No Known Allergies Allergy (Verified 07/05/20 12:26) Home Medications: Ambulatory Orders Medication Instructions Recorded Fenofibrate 134 mg PO DAILY 03/01/16 aspirin 81 mg tablet,delayed 81 mg PO QDAY 11/09/17 release atorvastatin 40 mg tablet 40 mg PO QHS 11/09/17 ranitidine HCl 150 mg tablet 150 mg PO QDAY 06/18/18 clonidine HCl 0.3 mg tablet 0.3 mg PO BID tab 10/09/18 furosemide 40 mg tablet 40 mg PO BID 10/09/18 Insulin Lispro [Humalog] 20 - 26 unit SQ TIDCM 01/07/19 carvedilol 25 mg tablet 25 mg PO QHS tab 01/29/19 Insulin Glargine [Lantus ([facility])] 45 units SUBCUT QHS 02/11/19 calcium carbonate 500 mg calcium 500 mg PO BID 01/24/20 (1,250 mg) chewable tablet pregabalin 100 mg capsule 100 mg PO QHS cap 01/24/20 Calcium Acetate 667 mg PO TID 06/30/20 Carvedilol [Coreg] 12.5 mg PO DAILY 06/30/20 Cholecalciferol (Vitamin D3) 5,000 unit PO DAILY 06/30/20 [Vitamin D3] Folic Acid/Vit B Complex and C 0.8 mg PO DAILY 06/30/20 [Renal-Shameka Tablet] - Social History Tobacco Use: non-smoker Vital Signs Temp Pulse Resp BP Pulse Ox 98.1 F 71 18 125/41 H 94 07/07/20 08:37 07/07/20 08:37 07/07/20 08:37 07/07/20 08:37 07/07/20 08:37 Oxygen Delivery Method Room Air Weight: 89.471 kg Body Mass Index (BMI) 35.4 Laboratory Tests Past 24 Hrs 07/07/20 07/07/20 05:43 05:43 WBC 3.9 L RBC 3.25 L Hgb 10.0 L Hct 31.2 L MCV 94.8 MCH 30.8 MCHC 32.1 RDW Std Deviation 47.7 H RDW Coeff of Rohan 13.5 Plt Count 178 MPV 10.6 Sodium 138 Potassium 3.1 L Chloride 102 Carbon Dioxide 29.0 Anion Gap 7 BUN 39 H Creatinine 3.71 H Estim Creat Clear Calc 9.67 Est GFR (MDRD) Af Amer 15 L Est GFR (MDRD) Non-Af 12 L BUN/Creatinine Ratio 10.5 Glucose 89 Calcium 7.7 L - Other Studies Radiology: [] reviewed Other Studies: [] Route of nutrition/ use of supplements: [] Nutritional Intake: [] IV Site: [] Gant Catheter: [] - Physical Exam General: Alert, Oriented x3, Cooperative, No apparent distress HEENT: Atraumatic, PERRLA, EOMI Neck: Supple, No Nodes Lungs: Clear to auscultation, Normal air movement Cardiovascular: Regular rate, Regular Rhythm Abdomen: Soft, Non Tender, Non-Distended Extremities: Edema Skin: Rash Present - LLE fading erythema around melara. IV Site: Peripheral, without redness Musculoskeletal: No Tenderness to Palpation of Joints or Extremities Neurological: Cranial nerves II-XII grossly intact - Assessment/Plan Antibiotics: [] Assessment/Plan: [] Active and Suspected Problems (Last Reviewed 06/30/20 @ 09:[address] Tadeo Larsen MD) Cellulitis of leg, left (Acute) Much improved on cefazolin. Plan is for discharge home on 5 days of keflex 500mg daily (take after HD on dialysis days). Reviewed [place] records; only a single bcx was drawn there, so have to suspect it was a true bacteremia particularly given severity of her illness last admit. Cipro is not reliable coverage for strep bacteremia, but so far no sign of infection beyond her cellulitis. Recent uti is resolved. Will follow, thank you, d/w primary team
[2020-07-07] MEDS: Cefazolin 1 GM/50 ML BAG IV (11:01)
[2020-07-07] MEDS: 0.9% Saline Lock 10 ML Syringe IV (11:06)
[2020-07-07] MEDS: Insulin Lispro 100 UNIT/ML INSULN.PEN SC ×3 (11:07→21:55)
[2020-07-07 11:15] LABS: Bedside Glucose 260 mg/dL (70-110)
--- NOTE | 2020-07-07 13:43 | PN.RENAL_ITS ---
Patient Problems: Active and Suspected Problems (Last Reviewed 06/30/20 @ 09:[address] Tadeo Larsen MD) Cellulitis of leg, left (Acute) Subjective: no new complaints. - Physical Exam Vitals/I&O's: Vital Signs Temp Pulse Resp BP Pulse Ox 98.1 F 71 18 125/41 H 94 07/07/20 08:37 07/07/20 08:37 07/07/20 08:37 07/07/20 08:37 07/07/20 08:37 Oxygen Delivery Method Room Air Weight: 89.471 kg Body Mass Index (BMI) 35.4 Intake and Output for Last 24 Hours 07/05/20 07/06/20 07/07/20 23:59 23:59 23:59 Intake Total 50 / 50 2652.25 / 2652.25 750 / 750 Output Total 900 / 900 100 / 100 Balance 50 / 50 1752.25 / 1752.25 650 / 650 General: Alert, Oriented x3, Cooperative HEENT: Atraumatic, PERRLA, EOMI, Normocephalic Neck: Supple, No JVD, Negative Carotid Bruits Lungs: Clear to auscultation, Normal air movement Cardiovascular: Regular rate, No murmurs Abdomen: Bowel Sounds Present, Soft, Non Tender Extremities: No edema, Capillary Refill Less than 3 Seconds Skin: No rashes, No breakdown Musculoskeletal: No Tenderness to Palpation of Joints or Extremities Neurological: Cranial nerves II-XII grossly intact Psych/Mental Status: Normal Affect, Appropriate Comment: LLE redness looks better Laboratory Results 07/06/20 16:37: POC Glucose 289 H 07/06/20 22:21: POC Glucose 299 H 07/07/20 05:43: WBC 3.9 L, RBC 3.25 L, Hgb 10.0 L, Hct 31.2 L, MCV 94.8, MCH 30.8, MCHC 32.1, RDW Std Deviation 47.7 H, RDW Coeff of Rohan 13.5, Plt Count 178, MPV 10.6 07/07/20 05:43: Sodium 138, Potassium 3.1 L, Chloride 102, Carbon Dioxide 29.0, Anion Gap 7, BUN 39 H, Creatinine 3.71 H, Estim Creat Clear Calc 9.67, Est GFR (MDRD) Af Amer 15 L, Est GFR (MDRD) Non-Af 12 L, BUN/Creatinine Ratio 10.5, Glucose 89, Calcium 7.7 L 07/07/20 06:56: POC Glucose 60 L 07/07/20 07:24: POC Glucose 97 07/07/20 11:07: POC Glucose 260 H Current Medications Acetaminophen (Tylenol) 650 mg PO Q6H PRN PRN PRN Reason: Pain Score 1-10/Temp > 100.7 F Aspirin (Ecotrin) 81 mg PO DAILY [facility] Last Admin: 07/07/20 08:40 Dose: 81 mg Documented by: Atorvastatin Calcium (Lipitor) 40 mg PO QHS [facility] Last Admin: 07/06/20 22:17 Dose: 40 mg Documented by: Calcium Acetate (Phoslo Gel Cap) 667 mg PO TIDCM [facility] Last Admin: 07/07/20 11:41 Dose: 667 mg Documented by: [facility] Last Admin: 07/07/20 08:39 Dose: 500 mg Documented by: Carvedilol (Coreg) 25 mg PO QHS [facility] Last Admin: 07/06/20 22:18 Dose: 25 mg Documented by: Carvedilol (Coreg) 12.5 mg PO DAILY [facility] Last Admin: 07/07/20 08:40 Dose: 12.5 mg Documented by: Cholecalciferol (Vitamin D (25mcg)) 5,000 unit PO DAILY [facility] Last Admin: 07/07/20 08:39 Dose: 5,000 unit Documented by: Clonidine (Catapres) 0.3 mg PO BID [facility] Last Admin: 07/07/20 08:39 Dose: 0.3 mg Documented by: Famotidine (Pepcid) 20 mg PO DAILY [facility] Last Admin: 07/07/20 08:40 Dose: 20 mg Documented by: [facility] ([facility]or) [facility] Last Admin: 07/07/20 08:39 Dose: 145 mg Documented by: Furosemide (Lasix) 40 mg PO SuSa@1000,1800 [facility] Gabapentin (Neurontin) 100 mg PO DAILY [facility] Last Admin: 07/07/20 08:39 Dose: 100 mg Documented by: Heparin Sodium (Porcine) (Heparin Na) 5,000 unit SC Q8 [facility] Last Admin: 07/07/20 06:54 Dose: 5,000 unit Documented by: Sodium Chloride () 250 mls @ 15 mls/hr IV .[id number] PRN PRN Reason: Saline Flush Last Admin: 07/07/20 11:05 Dose: 15 mls/hr Documented by: Sodium Chloride () 250 mls @ 15 mls/hr IV .[id number] PRN PRN Reason: Additional IVPB Infusion Cefazolin Sodium () 1 gm in 50 mls @ 100 mls/hr IV DAILY [facility] Last Infusion: 07/07/20 11:33 Dose: Infused Documented by: Insulin Glargine (Lantus ([facility])) 45 units SC QHS [facility] Last Admin: 07/06/20 22:22 Dose: 45 u Documented by: Insulin Human Lispro (Humalog Kwikpen ([facility])) 0 unit SC ACHS [facility]; Protocol Last Admin: 07/07/20 11:07 Dose: 2 u Documented by: Multivit/Ca Carb/B Cmplx/FA/Prenat (Nephrocaps, Renaphro) [facility] Last Admin: 07/07/20 08:39 Dose: 1 capsule Documented by: Ondansetron HCl (Zofran) 4 mg IV Q8H PRN PRN PRN Reason: NAUSEA/VOMITING Pregabalin (Lyrica) 100 mg PO QHS [facility] Last Admin: 07/06/20 22:19 Dose: 100 mg Documented by: Senna/Docusate Sodium (Senokot-S, Justa-Colace) 2 tablet PO BID PRN PRN PRN Reason: Constipation Sodium Chloride () 10 - 40 ml IV UD PRN PRN Reason: SALINE FLUSH Last Admin: 07/07/20 11:06 Dose: 10 ml Documented by: Medical Necessity - Tobacco Use Smoking Status: Never smoker Assessment/Plan All Active Problems (Last Reviewed 06/30/20 @ 09:[address] Tadeo Larsen MD) Cellulitis of leg, left (Acute) melanoma removal (Acute) Sepsis (Resolved) UTI (urinary tract infection) (Resolved) ESRD. HD MWF Anemia. gets JUSTIN with HD. continue same orders LLE cellulitis. on cefazolin as per primary. she did have strep bacteremia last admit. ID following
[2020-07-07 14:15] VITALS: BP 139/52; PULSE 72; RESP 18; TEMP 36.8; O2SAT 94
[2020-07-07 17:01] LABS: Bedside Glucose 256 mg/dL (70-110)
[2020-07-07 20:15] VITALS: BP 147/59; PULSE 71; RESP 16; TEMP 36.8; O2SAT 93
[2020-07-07] MEDS: Carvedilol 25 MG Tablet PO (21:56)
[2020-07-07] MEDS: Atorvastatin Calcium 40 MG Tablet PO (21:59)
[2020-07-07] MEDS: Pregabalin 50 MG Capsule 100 MG PO (22:02)
[2020-07-07 22:10] LABS: Bedside Glucose 311 mg/dL (70-110)
[2020-07-08 02:15] VITALS: BP 137/58; PULSE 62; RESP 16; TEMP 36.6; O2SAT 94
[2020-07-08 06:23] LABS: Hematocrit 31.4 % (37-47); Hemoglobin 9.9 g/dL (12.0-15.0); Mean Corp Hgb Conc 31.5 g/dL (32-36); Mean Corpuscular Hgb 30.5 pg (27.0-32.0); Mean Corpuscular Volume 96.6 fL (81-99); Mean Platelet Vol. 12.4 fl (6.2-12.0); POSITIVE COUNT YES; RBC Distribution Width CV 13.5 % (11.6-14.6); RBC Distribution Width SD 47.8 fl (35.1-43.9); Red Blood Count 3.25 M/mm3 (4.2-5.4)
[2020-07-08 06:30] LABS: Platelet Count 218 K/mm3 (150-450); White Blood Count 3.2 K/mm3 (4.4-11.0)
[2020-07-08 06:45] LABS: ALB/GLOB Ratio 0.6 RATIO (0.9-2.4); AST(SGOT) 14 U/L (15-37); Alanine Aminotransfer ALT/SGPT 11 U/L (13-56); Albumin, Serum 2.3 g/dL (3.2-5.0); Alkaline Phosphatase 75 U/L (45-117); Anion Gap 8 (5-15); BUN 57 mg/dL (7-18); BUN/Creat Ratio 11.6 RATIO (10-20); Calcium,Total 8.3 mg/dL (8.5-10.1); Chloride 106 mmol/L (98-107); Creatinine, Serum 4.92 mg/dL (0.55-1.02); EST Glomerular Filtration Rate 9 mL/min (>60); Est Glom Filt Rate - Afr Amer 11 mL/min (>60); Estimated Creatinine Clearance 7.29 ml/min; Globulin 3.6 g/dL (2.2-4.2); Glucose 165 mg/dL (74-106); Potassium 3.6 mmol/L (3.5-5.1); Protein, Total 5.9 g/dL (6.4-8.2); Sodium Level 141 mmol/L (136-145)
[2020-07-08] MEDS: Heparin Injection (Vial) 5,000 UNIT/ML VIAL 5000 UNIT SC (06:46)
[2020-07-08 07:00] LABS: Bedside Glucose 147 mg/dL (70-110)
[2020-07-08 08:05] VITALS: BP 131/60; PULSE 64; RESP 18; TEMP 36.5; O2SAT 94
[2020-07-08] MEDS: cloNIDine HCl 0.2 MG Tablet 0.3 MG PO (08:07)
[2020-07-08] MEDS: Gabapentin 100 MG Capsule PO (08:08)
[2020-07-08] MEDS: Calcium Acetate 667 MG Capsule PO (08:08)
[2020-07-08] MEDS: Calcium Carbonate 500 MG Tablet PO (08:08)
[2020-07-08] MEDS: Famotidine 20 MG Tablet PO (08:08)
[2020-07-08] MEDS: Fenofibrate 145 MG Tablet PO (08:09)
[2020-07-08] MEDS: Carvedilol 12.5 MG Tablet PO (08:09)
[2020-07-08] MEDS: Aspirin E.C. 81 MG Tablet PO (08:09)
--- NOTE | 2020-07-08 09:25 | DCINST_ITS ---
- Discharge Diagnoses Current Active Problems: Current Active and Chronic Problems (Last Reviewed 06/30/20 @ 09:[address] Tadeo Larsen MD) ESRD (end stage renal disease) on dialysis (Chronic) Cellulitis of leg, left (Acute) Diabetes type 2, uncontrolled (Chronic) dx : last exacerbation : dka : never hypoglycemic episode : 11/22 er visit : never Reason(s) for Visit for Discharge Instructions: Left lower leg redness You will use the following diet at home:: Calorie/Carbohydrate Controlled (specify 1200, 1400, etc) - 1800 calories, Renal (restricted protein/sodium) Your food should be the consistency of: Regular Your liquids should be the consistency of: Regular/Thin Discharge Activity: Return to Normal Activity Additional Instructions: Complete your antibiotics. Continue antibiotics after dialysis (on the days you have dialysis). Continue to elevate your left lower extremity. Follow-up with your primary care doctor in 1 to 2 weeks. Let your doctor know if the redness in your lower extremity continues to get worse. Follow-up with your dialysis and information writer as scheduled. Allergies/Adverse Reactions: Allergies No Known Allergies Allergy (Verified 07/05/20 12:26) Medications to take at Discharge Fenofibrate 134 mg PO DAILY 03/01/16 aspirin 81 mg tablet,delayed release 81 mg PO QDAY 11/09/17 atorvastatin 40 mg tablet 40 mg PO QHS 11/09/17 ranitidine HCl 150 mg tablet 150 mg PO QDAY 06/18/18 clonidine HCl 0.3 mg tablet 0.3 mg PO BID tab 10/09/18 furosemide 40 mg tablet 40 mg PO BID 10/09/18 Insulin Lispro [Humalog] 20 - 26 unit SQ TIDCM 01/07/19 carvedilol 25 mg tablet 25 mg PO QHS tab 01/29/19 Insulin Glargine [Lantus SoloStar Pen] 45 units SUBCUT QHS 02/11/19 calcium carbonate 500 mg calcium (1,250 mg) chewable tablet 500 mg PO BID 01/24/20 pregabalin 100 mg capsule 100 mg PO QHS cap 01/24/20 Calcium Acetate 667 mg PO TID 06/30/20 Carvedilol [Coreg] 12.5 mg PO DAILY 06/30/20 Cholecalciferol (Vitamin D3) [Vitamin D3] 5,000 unit PO DAILY 06/30/20 Folic Acid/Vit B Complex and C [Renal-Shameka Tablet] 0.8 mg PO DAILY 06/30/20 Acetaminophen [Tylenol Tablet] 650 mg PO Q6H PRN PRN tablet 07/08/20 Cephalexin [Keflex] 500 mg PO DAILY 5 Days #5 cap 07/08/20 The following prescriptions were given: Cephalexin [Keflex] 500 mg PO DAILY 5 Days #5 cap Transmission Status: Pending to [facility] Primary Care Physician: Gabriela Dickens MD [Primary Care Provider] - Please follow up with your Primary Care Physician in: within 1-2 weeks Test Results: Test results from this visit will be discussed in further detail at your follow- up appointment, if applicable. Please Follow Up With: Gabriela Dickens MD When: Monday Proposed Discharge Date: 07/08/20
--- NOTE | 2020-07-08 09:31 | DS.PCM_ITS ---
Discharge Date and Diagnosis Date of Admission: 07/05/20 Date of Discharge: 07/08/20 - Primary Discharge Diagnosis Acute Problems: Active Problems (Last Reviewed 06/30/20 @ 09:[address] Tadeo Larsen MD) Cellulitis of leg, left (Acute), severe, present on admission Recent sepsis with streptococcal likely bacteremia/E. coli UTI - Secondary Discharge Diagnosis Chronic Problems: Chronic Problems (Last Reviewed 06/30/20 @ 09:[address] 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 Continues to use salt as well Hypertension associated with chronic kidney disease due to type 2 diabetes mellitus (Chronic) BP remains elevated. 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 Diet and food choices remain an issue. Has not changed her eating habits and therefore BG readings have never stabilized. Pt has made choices which have continued to create high BG readings. She is now bein g prepped for upcoming dialysis. She is doing well with making insulin adjustments and making BG corrections. She is doing fairly well with exercise. Lymphedema of left lower extremity (Chronic) Hospital Course and Treatment Infectious disease Nephrology Operations: None Procedures: None Summary of Care Provided: The patient is a 80 year old F with past medical history of ESRD on hemodialysis who was recently discharged after admission for severe sepsis secondary to UTI on 07/02/20 comes in with progressive left lower extremity redness and swelling ongoing. Patient stated that prior to discharge she noticed some redness but was not bad. She completed her Cipro for her UTI at home. She however noticed over 2 days prior to admission that the redness in the lower extremity was progressively worse and was warm to touch. In the ED, vitals are stable. Admitting blood work showed WBC count of 4.7, hemoglobin 10.0, platelet count 109, her chemistries are stable. Lactic Acid is 1.1 And was admitted to the [facility] floor, started on IV cefazolin. She also received dialysis during the hospital stay. Her left lower extremity redness and swelling improved. At time of discharge, patient still has some erythema of the lower extremity but was markedly improved from previous. Nephrology and procedures were consulted. Patient was discharged on 5 days of Keflex. Blood culture showed no growth in 48 hours and 1 bottle and pending in the other bottle. She did not receive dialysis on the day of discharge. She was discharged for Outpatient dialysis. She will follow-up with the credit support specialist and primary care doctor as scheduled. Subjective: On the day of discharge, patient was seen and examined. Denied any new complaints. Objective: Physical exam: General: Alert, Oriented x3, Cooperative HEENT: Atraumatic, PERRLA, EOMI, Normocephalic Neck: Supple, No JVD, Negative Carotid Bruits Lungs: Clear to auscultation, Normal air movement Cardiovascular: Regular rate, No murmurs Abdomen: Bowel Sounds Present, Soft, Non Tender, Non-Distended Extremities: Edema - Nonpitting left lower extremity Skin: - - Left lower extremity erythema, improving Musculoskeletal: No Tenderness to Palpation of Joints or Extremities Neurological: Cranial nerves II-XII grossly intact, Neuro grossly intact Psych/Mental Status: Normal Affect, Appropriate - Physical Exam Vitals/I&O's: Vital Signs Temp Pulse Resp BP Pulse Ox 97.7 F L 64 18 131/60 H 94 07/08/20 08:05 07/08/20 08:05 07/08/20 08:05 07/08/20 08:05 07/08/20 08:05 Oxygen Delivery Method Room Air Weight: 90.5 kg Body Mass Index (BMI) 35.4 Intake and Output for Last 24 Hours 07/06/20 07/07/20 07/08/20 23:59 23:59 23:59 Intake Total 2652.25 / 2652.25 797.5 / 1197.5 650 / 650 Output Total 900 / 900 100 / 425 325 / 325 Balance 1752.25 / 1752.25 697.5 / 772.5 325 / 325 Microbiology Past 72 Hours 07/06/20 05:45 Blood Culture (Wb) - Right Hand Blood Culture - Preliminary No growth in 48 hours. Laboratory Results 07/07/20 11:07: POC Glucose 260 H 07/07/20 16:49: POC Glucose 256 H 07/07/20 21:53: POC Glucose 311 H 07/08/20 05:54: Sodium 141, Potassium 3.6, Chloride 106, Carbon Dioxide 27.0, Anion Gap 8, BUN 57 H, Creatinine 4.92 H, Estim Creat Clear Calc 7.29, Est GFR (MDRD) Af Amer 11 L, Est GFR (MDRD) Non-Af 9 L, BUN/Creatinine Ratio 11.6, Glucose 165 H, Calcium 8.3 L, Total Bilirubin 0.30, AST 14 L, ALT 11 L, Alkaline Phosphatase 75, Total Protein 5.9 L, Albumin 2.3 L, Globulin 3.6, Albumin/Globulin Ratio 0.6 L 07/08/20 05:54: WBC 3.2 L, RBC 3.25 L, Hgb 9.9 L, Hct 31.4 L, MCV 96.6, MCH 30.5, MCHC 31.5 L, RDW Std Deviation 47.8 H, RDW Coeff of Rohan 13.5, Plt Count 218, MPV 12.4 H 07/08/20 06:43: POC Glucose 147 H Current Medications Acetaminophen (Tylenol) 650 mg PO Q6H PRN PRN PRN Reason: Pain Score 1-10/Temp > 100.7 F Aspirin (Ecotrin) 81 mg PO DAILY [facility] Last Admin: 07/08/20 08:09 Dose: 81 mg Documented by: Atorvastatin Calcium (Lipitor) 40 mg PO QHS [facility] Last Admin: 07/07/20 21:59 Dose: 40 mg Documented by: Calcium Acetate (Phoslo Gel Cap) 667 mg PO TIDCM [facility] Last Admin: 07/08/20 08:08 Dose: 667 mg Documented by: Calcium Carbonate (Tums) 500 mg PO BIDCM [facility] Last Admin: 07/08/20 08:08 Dose: 500 mg Documented by: Carvedilol (Coreg) 25 mg PO QHS [facility] Last Admin: 07/07/20 21:56 Dose: 25 mg Documented by: Carvedilol (Coreg) 12.5 mg PO DAILY [facility] Last Admin: 07/08/20 08:09 Dose: 12.5 mg Documented by: Cholecalciferol (Vitamin D (25mcg)) 5,000 unit PO DAILY [facility] Last Admin: 07/08/20 08:08 Dose: 5,000 unit Documented by: Clonidine (Catapres) 0.3 mg PO BID [facility] Last Admin: 07/08/20 08:07 Dose: 0.3 mg Documented by: Famotidine (Pepcid) 20 mg PO DAILY [facility] Last Admin: 07/08/20 08:08 Dose: 20 mg Documented by: Fenofibr[facility] (Tricor) [facility] Last Admin: 07/08/20 08:09 Dose: 145 mg Documented by: Furosemide (Lasix) 40 mg PO SuSa@1000,1800 [facility] Gabapentin (Neurontin) 100 mg PO DAILY [facility] Last Admin: 07/08/20 08:08 Dose: 100 mg Documented by: Heparin Sodium (Porcine) (Heparin Na) 5,000 unit SC Q8 [facility] Last Admin: 07/08/20 06:46 Dose: 5,000 unit Documented by: Sodium Chloride () 250 mls @ 15 mls/hr IV .[id number] PRN PRN Reason: Saline Flush Last Infusion: 07/07/20 14:15 Dose: 0 mls/hr Documented by: Sodium Chloride () 250 mls @ 15 mls/hr IV .[id number] PRN PRN Reason: Additional IVPB Infusion Cefazolin Sodium () 1 gm in 50 mls @ 100 mls/hr IV DAILY [facility] Last Infusion: 07/07/20 11:33 Dose: Infused Documented by: Insulin Glargine (Lantus ([facility])) 45 units SC QHS [facility] Last Admin: 07/07/20 21:55 Dose: 45 u Documented by: Insulin Human Lispro (Humalog Kwikpen ([facility])) 0 unit SC ACHS [facility]; Protocol Last Admin: 07/08/20 06:47 Dose: Not Given Documented by: Multivit/Ca Carb/B Cmplx/FA/Prenat (Nephrocaps, Renaphro) [facility] Last Admin: 07/07/20 16:51 Dose: 1 capsule Documented by: Ondansetron HCl (Zofran) 4 mg IV Q8H PRN PRN PRN Reason: NAUSEA/VOMITING Pregabalin (Lyrica) 100 mg PO QHS [facility] Last Admin: 07/07/20 22:02 Dose: 100 mg Documented by: Senna/Docusate Sodium (Senokot-S, Justa-Colace) 2 tablet PO BID PRN PRN PRN Reason: Constipation Sodium Chloride () 10 - 40 ml IV UD PRN PRN Reason: SALINE FLUSH Last Admin: 07/07/20 11:06 Dose: 10 ml Documented by: Discharge Diet: Carb Control Diet, Renal Diet Discharge Activity: Return to Normal Activity Home Medications: Medications to take at Discharge Fenofibrate 134 mg PO DAILY 03/01/16 aspirin 81 mg tablet,delayed release 81 mg PO QDAY 11/09/17 atorvastatin 40 mg tablet 40 mg PO QHS 11/09/17 ranitidine HCl 150 mg tablet 150 mg PO QDAY 06/18/18 clonidine HCl 0.3 mg tablet 0.3 mg PO BID tab 10/09/18 furosemide 40 mg tablet 40 mg PO BID 10/09/18 Insulin Lispro [Humalog] 20 - 26 unit SQ TIDCM 01/07/19 carvedilol 25 mg tablet 25 mg PO QHS tab 01/29/19 Insulin Glargine [Lantus SoloStar Pen] 45 units SUBCUT QHS 02/11/19 calcium carbonate 500 mg calcium (1,250 mg) chewable tablet 500 mg PO BID 01/24/20 pregabalin 100 mg capsule 100 mg PO QHS cap 01/24/20 Calcium Acetate 667 mg PO TID 06/30/20 Carvedilol [Coreg] 12.5 mg PO DAILY 06/30/20 Cholecalciferol (Vitamin D3) [Vitamin D3] 5,000 unit PO DAILY 06/30/20 Folic Acid/Vit B Complex and C [Renal-Shameka Tablet] 0.8 mg PO DAILY 06/30/20 Acetaminophen [Tylenol Tablet] 650 mg PO Q6H PRN PRN tab 07/08/20 Cephalexin [Keflex] 500 mg PO DAILY 5 Days #5 cap 07/08/20 Following Prescriptions Were Given to Patient: Cephalexin [Keflex] 500 mg PO DAILY 5 Days #5 cap Transmission Status: Received by [facility] Primary Care Physician: Gabriela Dickens MD [Primary Care Provider] - Please follow up with your Primary Care Physician in: within 1-2 weeks Please Follow Up With: Gabriela Dickens MD When: Monday Disposition: Home Minutes spent on discharge:: 40 Patient Condition:: Stable Medical Necessity - Tobacco Use Smoking Status: Never smoker Tobacco Use: Non-smoker Meaningful Use Info Meaningful Use Diagnoses (Choose all that apply): None applicable Inpatient E&M: 49592 Disch Hosp
--- NOTE | 2020-07-09 13:41 | CASEMGMT ---
GEORGE TRIMBLE Discharge Follow-up Phone Call: CHANTEL: Cheyanne Strata: 3 Call Date: 07/09/2020 Discharge Date: 07/08/2020 Time of Call: 1340 Duration: 4 minutes Admitting Diagnosis: RLL cellulitis Discharge follow-up call placed to patient. Pt states she is doing well since discharge. States she was sitting with her leg elevated with a compression stocking on at the time of the call. Pt reports her leg does look better today with redness persisting near her ankle but not as fire red as before. Pt states she did obtain her antibiotic and has taken her dose today. Pt states she has been getting around her home without difficulty. Pt states she has a follow-up appointment with her PCP on the . Pt states she has a glucose testing supplies and reports this morning's sugar was 300. She states she did take her insulin as ordered (Humalog 20 units in the morning) and that she had not yet checked it or taken her lunch time dose. Pt states she will use a sliding scale for her lunch time dose. This GEORGE TRIMBLE instructed pt to inform her PCP if her sugars remain elevated. Pt agreed. Pt denied any other questions or concerns. Ann Rogers RN CM
== END 2020-07-08 10:43 | disposition home or self-care (01) | DRG 602 ==
LOC: ED 14:05 → MS3 15:13
PROVIDERS: Nurse Practitioner Family; Admitting Provider Internal Medicine; Emergency Provider Emergency Medicine; PCP Internal Medicine; Visit Provider Internal Medicine
DX: L03.116 Cellulitis of left lower limb (principal); N18.6 End stage renal disease; I12.0 Hypertensive chronic kidney disease with stage 5 chronic kidney disease or end stage renal disease; E11.40 Type 2 diabetes mellitus with diabetic neuropathy, unspecified; E11.22 Type 2 diabetes mellitus with diabetic chronic kidney disease; E11.59 Type 2 diabetes mellitus with other circulatory complications; D63.1 Anemia in chronic kidney disease; E11.65 Type 2 diabetes mellitus with hyperglycemia; E78.5 Hyperlipidemia, unspecified; K21.9 Gastro-esophageal reflux disease without esophagitis; I89.0 Lymphedema, not elsewhere classified; G56.02 Carpal tunnel syndrome, left upper limb; E66.9 Obesity, unspecified; Z66 Do not resuscitate; Z99.2 Dependence on renal dialysis; Z68.35 Body mass index [BMI] 35.0-35.9, adult; Z79.4 Long term (current) use of insulin; Z85.820 Personal history of malignant melanoma of skin; Z90.710 Acquired absence of both cervix and uterus; Z90.722 Acquired absence of ovaries, bilateral; Z98.41 Cataract extraction status, right eye; Z98.42 Cataract extraction status, left eye; Z79.899 Other long term (current) drug therapy; Z79.82 Long term (current) use of aspirin
CPT/HCPCS: 36415; 80048; 80053; 82962; 83605; 85025; 85027; 85610; 85652; 86141; 87040; 90937; 93971; 97110; 97162; 97166; 97530; 97802; 99285; J7030; J7050; A4216; G0257

== ENCOUNTER → 2021-08-05 11:10 | Outpatient (CLI) | payer MEDICARE, OTHER, SELFPAY ==
--- NOTE | 2021-08-05 10:00 | LES_PTH ---
PATIENT: JOSE REYES LOC: [facility] U#:[id number] AGE/SX: 85/F ROOM: RE08/05/[address]: Dr. Hans Rousseau MD : [id number] BED: DIS: SPEC #: [id number] RECD: 08/05/21 11:03 STATUS: KALEB TONY #: [id number] SANTIAGO: 08/05/21 10:[address]: Hans Rousseau DEPT: SURGICAL PATHOLOGY RECD BY: Desiree David ENTERED: 08/05/21 11:37 SP TYPE: Lesion OTHR DR: Dr. 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 Solar elastosis. AM:trey 08/06/2021 COMMENT Case has been reviewed in consultation with Dr. Terry who concurs with the above diagnosis. IDC:SJ MICROSCOPIC DESCRIPTION Slides are reviewed. GROSS DESCRIPTION Received in fixative is one container labeled with the patient's name and designated right forearm. The specimen consists of an ellipse pink-cardoza excised skin measuring 2.5 x 1.2 x 0.5 cm. The cutaneous surface contains an elevated light cardoza-white lesion measuring 0.7 cm in greatest dimension. The specimen is inked, serially sectioned and totally submitted in two cassettes as follows: 1 - tips, 2??remainder of specimen. / AM:trey 08/05/21 TC:0 [facility]: [id number]
== END ==
PROVIDERS: PCP Internal Medicine; Referring Provider Surgery; Visit Provider Surgery
DX: L98.9 Disorder of the skin and subcutaneous tissue, unspecified (principal)
CPT/HCPCS: 88305

== ENCOUNTER → 2022-06-16 | Outpatient (CLI) | payer MEDICARE, OTHER, SELFPAY ==
[2022-06-16 12:41] LABS: AST(SGOT) 23 U/L (15-37); Alanine Aminotransfer ALT/SGPT 27 U/L (13-56); Albumin, Serum 3.3 g/dL (3.2-5.0); Alkaline Phosphatase 83 U/L (45-117); Bilirubin, Direct 0.19 mg/dL (0.00-0.30); Globulin 3.5 g/dL (2.2-4.2); Protein, Total 6.8 g/dL (6.4-8.2)
[2022-06-17 17:17] LABS: ANTINUCLEAR ANTIBODIES DIRECT Negative (Negative)
[2022-06-20 22:09] LABS: Cytoplasmic Ab (C-ANCA) <1:20 titer (Neg:<1:20)
[2022-06-21 12:42] LABS: CCP IgG Antibodies 5 units (0-19); Perinuclear Ab (P-ANCA) <1:20 titer (Neg:<1:20)
== END | disposition home or self-care (01) ==
LOC: PAVLAB 11:59
PROVIDERS: PCP Internal Medicine; Visit Provider Internal Medicine Critical Care Medicine
DX: I27.20 Pulmonary hypertension, unspecified (principal)
CPT/HCPCS: 36415; 80076; 86038; 86200; 86225; 86235; 86256; 86431

== ENCOUNTER → 2022-06-28 | Outpatient (CLI) | payer MEDICARE, OTHER, SELFPAY ==
--- NOTE | 2022-06-28 12:51 | PFT ---
INTRODUCTION: The patient is an 82-year-old female that presents for pulmonary function studies secondary to a diagnosis of pulmonary hypertension. Respiratory therapy reported good patient effort. Bronchodilators were used during testing. INTERPRETATION: Forced expiration spirometry demonstrates no evidence of a large airways obstructive ventilatory defect. There was no significant response to aerosolized bronchodilators. Spirograms are of good quality and plateau normally. Body plethysmography was performed and revealed lung volumes to be within normal limits. Diffusing capacity by single breath CO is reduced at 50% of predicted. IMPRESSION: Isolated moderate reduction in diffusing capacity.
== END | disposition home or self-care (01) ==
LOC: PSN 09:57
PROVIDERS: PCP Internal Medicine; Referring Provider Internal Medicine Critical Care Medicine; Visit Provider Internal Medicine Critical Care Medicine
DX: I27.20 Pulmonary hypertension, unspecified (principal)
CPT/HCPCS: 94060; 94726; 94729

== ENCOUNTER → 2022-07-04 | Outpatient (CLI) | payer MEDICARE, OTHER, SELFPAY ==
[2022-07-04 12:45] VITALS: PULSE 78; PULSE 79; PULSE 82; PULSE 83; PULSE 86; PULSE 93; PULSE 94; O2SAT 90; O2SAT 93; O2SAT 94; O2SAT 95; O2SAT 96
--- NOTE | 2022-07-04 14:19 | PCM.PSN.6M ---
PSN 6 Minute Walk Test 6 Minute Walk Test 6 Minute Walk Test: 6 Minute Walk Test PSN:6-Minute Walk Test Start: 07/04/22 12:45 Freq: Status: Active Protocol: [id number] Document 07/04/22 12:45 DWP (Rec: 07/04/22 12:53 [facility] [id number]) 6 Minute Walk Test Date Performed 07/04/22 Time Performed 12:30 Height 5 ft 2 in Weight: 85.275 kg Weight in Pounds 188.[address]: DR. GOLDSMITH FIO2 (% Oxygen) 0.21 Assistive device used: None Pre-test Oxygen Delivery Method Room Air Pulse Ox (%) 94 Pulse Rate (60-100 beats/min) 79 1st minute Oxygen Delivery Method Room Air Pulse Ox (%) 96 Pulse Rate (60-100 beats/min) 78 Reported Symptoms Increased Work of Breathing 2nd minute Oxygen Delivery Method Room Air Pulse Ox (%) 93 Pulse Rate (60-100 beats/min) 79 Reported Symptoms Increased Work of Breathing 3rd minute Oxygen Delivery Method Room Air Pulse Ox (%) 95 Pulse Rate (60-100 beats/min) 83 Reported Symptoms Increased Work of Breathing 4th minute Oxygen Delivery Method Room Air Pulse Ox (%) 94 Pulse Rate (60-100 beats/min) 86 Reported Symptoms Increased Work of Breathing 5th minute Oxygen Delivery Method Room Air Pulse Ox (%) 90 Pulse Rate (60-100 beats/min) 93 Reported Symptoms Increased Work of Breathing 6th minute Oxygen Delivery Method Room Air Pulse Ox (%) 90 Pulse Rate (60-100 beats/min) 94 Reported Symptoms Increased Work of Breathing Post-test Oxygen Delivery Method Room Air Pulse Ox (%) 96 Pulse Rate (60-100 beats/min) 82 Dyspnea Abraham Scale (0-10) 4 Exertion Abraham Scale (6-20) 14 Full Laps Walked 10 Partial Lap, Number of Tiles Walked 0 Total Distance Walked (ft) 590 Interpretation Interpretation: The patient was able to ambulate only 590 feet over the course of 6 minutes on room air with no assistive devices or breaks. The patient did experience significant desaturation from baseline of 94% to as low as 90%. No significant tachycardia was noted. These findings are consistent with a respiratory limitation exercise tolerance. Recommendations Recommendations: No supplemental oxygen is indicated at this time. However, patient will need to be followed closely given level of desaturation.
== END | disposition home or self-care (01) ==
LOC: PSN 12:22
PROVIDERS: PCP Internal Medicine; Referring Provider Internal Medicine Critical Care Medicine; Visit Provider Internal Medicine Critical Care Medicine
DX: I27.20 Pulmonary hypertension, unspecified (principal)
CPT/HCPCS: 94618

== ENCOUNTER → 2022-07-21 | Outpatient (CLI) | payer MEDICARE, OTHER, SELFPAY ==
--- NOTE | 2022-07-21 09:41 | CDU_ITS ---
Reason For Study: carotid stenosis Rt. Velocities/BP Lt. Velocities/BP Prox CCA 90.5/12.4 cm/sec. Prox CCA 99.8/13.9 cm/sec. Mid CCA 69.6/9.1 cm/sec. Mid CCA 79.0/9.0 cm/sec. Dist CCA 74.0/11.3 cm/sec. Dist CCA 85.1/11.4 cm/sec. Prox ICA 82.8/10.2 cm/sec. Prox ICA 165.3/16.0 cm/sec. Mid ICA 85.0/11.3 cm/sec. Mid ICA 101.1/16.3 cm/sec. Dist ICA 109.1/17.9 cm/sec. Dist ICA 93.7/20.0 cm/sec. Rt. ICA/CCA = 1.6. Lt. ICA/CCA = 2.1. Prox ECA 93.8/3.6 cm/sec. Prox ECA 98.6 cm/sec. Rt. Vert. 99.8/17.6 cm/sec. Lt. Vert. 47.0/13.9 cm/sec. Right Extracranial There is homogeneous, smooth atherosclerotic plaque noted in the right common carotid artery. There is heterogeneous, irregular atherosclerotic plaque noted in the right internal carotid artery. There is heterogeneous, irregular atherosclerotic plaque noted in the right external carotid artery. Antegrade flow is noted in the right vertebral artery. Left Extracranial There is homogeneous, smooth atherosclerotic plaque noted in the left common carotid artery. There is heterogeneous, irregular atherosclerotic plaque noted in the left internal carotid artery. There is heterogeneous, irregular atherosclerotic plaque noted in the left external carotid artery. Antegrade flow is noted in the left vertebral artery. Procedure Carotid Duplex 01954. This is a Carotid Duplex examination using B-mode, color flow and specral Doppler. The exam was diagnostic. Exam performed in department. VL/Carotid Duplex Ultrasound Interpretation Summary Irregular calcific plaque with shadowing at the proximal right internal carotid artery with less than 50% stenosis Less than 50% stenosis right external carotid artery Irregular calcific plaque with shadowing at the proximal left internal carotid artery with 50 to 69% stenosis Less than 50% stenosis left external carotid artery Patent and antegrade vertebral arteries bilaterally Ordering Physician: Hans Rousseau Performed By: Preston Hebert RVT
== END | disposition home or self-care (01) ==
LOC: CVS 09:36
PROVIDERS: PCP Internal Medicine; Referring Provider Surgery; Visit Provider Surgery
DX: I65.23 Occlusion and stenosis of bilateral carotid arteries (principal)
CPT/HCPCS: 93880

== ENCOUNTER 2023-04-20 09:33 | Observation (INO) | payer MEDICARE, OTHER, SELFPAY ==
[2023-04-20] VITALS (15 sets, daily range): BP systolic 105–189; BP diastolic 53–98; PULSE 58–81; RESP 16–18; TEMP 36.1–36.4; O2SAT 93–100; BMI 34.0
[2023-04-20 09:18] LABS: Hematocrit 33.6 % (37-47); Hemoglobin 10.6 g/dL (12.0-15.0); Mean Corp Hgb Conc 31.5 g/dL (32-36); Mean Corpuscular Hgb 32.2 pg (27.0-32.0); Mean Corpuscular Volume 102.1 fL (81-99); POSITIVE COUNT YES; RBC Distribution Width CV 14.6 % (11.6-14.6); RBC Distribution Width SD 55.1 fl (35.1-43.9); Red Blood Count 3.29 M/mm3 (4.2-5.4); White Blood Count 3.1 K/mm3 (4.4-11.0)
--- NOTE | 2023-04-20 09:30 | PN.ORTHO_ITS ---
Subjective Subjective The patient was seen and examined postoperatively. She is lying in bed resting comfortably. Her pain is controlled. She denies any acute numbness tingling or weakness Objective Data Lab / Micro Data Result Diagrams: 04/20/23 11:10 04/20/23 09:00 Physical Exam Const alert, oriented x3 and no apparent distress General Appearance: cooperative, comfortable and well kempt HEENT normocephalic and head/scalp atraumatic Head and Scalp: normal to inspection Eyes EOMs intact bilaterally and conjunctivae normal Neck full ROM General: normal visual inspection Chest inspection of chest normal and palpation of chest normal Resp normal respiratory effort and normal air movement Cardio regular rate, regular rhythm and peripheral pulses 2+ throughout GI soft to palpation, non-tender and non-distended Back/Spine Back/Spine Narrative: Dressings clean dry and intact Cervical Spine: cervical ROM normal Thoracic Spine / Upper Back: normal to inspection Lumbar Spine / Lower Back: normal to inspection Extremity normal to inspection, full ROM, normal capillary refill, no clubbing, cyanosis or edema and no calf tenderness Skin no rashes or lesions noted General Skin Exam: no breakdown Neuro oriented x3, CN's II-XII intact bilaterally, moves all extremities, no focal motor deficits, no sensory deficits noted and deep tendon reflexes 2+ bila terally Motor Exam: strength 5/5 throughout and muscle tone normal throughout Assessment & Plan Assessment/Plan (1) Lumbar spondylosis: PLAN: Plan Okay to admit to floor See orders Discharge planning, likely home tomorrow
--- NOTE | 2023-04-20 09:30 | OP.PCM_ITS ---
Problems Associated Problem List Diagnoses (1) Lumbar spondylosis: Report of Operation Date of Procedure: 04/20/23 Pre-Operative Diagnosis: 1. Lumbar stenosis, spondylosis 2. Chronic back pain Post-Operative Diagnosis: 1. Lumbar stenosis, spondylosis 2. Chronic back pain Surgery/Procedure Performed:: 1. T9-10 partial bilateral laminectomies 2. Dorsal column stimulator paddle lead placement 3. Subcutaneous placement of dorsal column stimulator generator 4. 1 hour of complex programming postoperatively Description of Surgical Findings:: The patient is an 83-year-old female with intractable back and leg pain. Image studies confirm the above diagnosis. She is opted for operative intervention understanding the risk to include but not limited to bleeding, infection, damage to nerves arteries and veins, possibility of spinal fluid leak, paralysis, continued pain, need for further surgery, deep vein thrombosis, pulmonary embolism, heart attack, risk of stroke or , possibility of hardware failure The patient was identified in the preoperative holding area. There she received preoperative IV antibiotics and was then transferred to the operative suite. Once in the operative suite after general endotracheal anesthesia was established the patient was transferred to the [place] operating table in the prone position. All bony prominences were padded accordingly. The thoracolumbar spine was prepped and draped in a standard surgical fashion. An incision was made over the thoracolumbar spine centered over the T9-10 interspace. This was taken down to the fascia. The fascia was divided and subperiosteal dissection was taken down to the level of the bilateral facet joints at T9-10. Partial bilateral laminectomies were performed at the T9-10 interspace with part of the inferior lamina of T9 and superior lamina of T10. At this point a paddle lead was placed spanning from T8 inferiorly. The lead was then anchored to the fascia using standard anchors with nylon suture. An incision was made over the right iliolumbar region to create a battery pocket for the generator. Wires from the stimulator were passed subcutaneously with a passing device to the battery pocket and connected to a new generator battery. Both incisions were then irrigated and closed with #1 Vicryl for the fascia, 2-0 Vicryl for subcutaneous, 2-0 nylon for skin. Sterile dressings were applied with 4 x 4's ABD and tape. Sponge instrument needle counts were correct at the end of the case. Neurophysiologic monitoring was maintained at baseline throughout the duration of the case. The patient was extubated and taken to the PACU without incident. Surgeon: Alexys Roger Type of Anesthesia: General Estimated Blood Loss (mL): 10 cc Fluids Replaced: 250 cc Grafts/Implants Used: [employer] Complications None Admit VTE Documentation VTE Present on Admission: No
--- NOTE | 2023-04-20 09:30 | DS.PCM_ITS ---
Providers Date of Admission: 04/20/23 Primary Care Physician: Dr. Gabriela Dickens MD Reason For Visit: THORACIC 9-10 LAMINECTOMY IMPLANT SPINAL CORD STIM Medications at Discharge Home Medications atorvastatin 40 mg tablet (Lipitor) 40 mg PO QHS cholesterol 11/09/17 clonidine HCl 0.3 mg tablet 0.3 mg PO BID blood pressure 10/09/18 Calcium Acetate 2 tab PO TID supplement 06/16/22 antiarthritic combination no.2 900 mg tablet (glucosamine-chondroitin) 1,800 mg PO DAILY 06/16/22 carvedilol 25 mg tablet 25 mg PO BID blood pressure 06/16/22 fenofibrate micronized 134 mg capsule 134 mg PO DAILY 06/16/22 furosemide 40 mg tablet (Lasix) 40 mg PO .SATSUN diuretic 06/16/22 spironolactone 25 mg tablet 25 mg PO BID 06/16/22 insulin glargine 100 unit/mL subcutaneous solution (Lantus U-100 Insulin) 25 unit subcut QPM 04/19/23 insulin lispro 100 unit/mL subcutaneous pen 5 - 15 unit subcut TID PRN SLIDING SCALE 04/19/23 hydrocodone-acetaminophen 5-325mg 5mg-325mg 1 tab PO Q8H PRN Pain 7 days #21 tabs 04/20/23 Hospital Course Operations - (T9-10 laminectomy, implantation of permanent spinal cord stimulator lead and generator) Summary of Care Provided Minutes Spent on Discharge: 15 Hospital Course: The patient is an 83-year-old female who underwent implantation of permanent spinal cord stimulator lead and generator on 04/20/2023. She was subsequently admitted. The hospitalist was consulted for medical management. She progressed well. Her pain was well controlled and she was mobilizing well. No significant medical issues were reported. She was subsequently discharged home on 04/21/23 to follow-up with Dr. Roger in 3 weeks Physical Exam Const alert, oriented x3 and no apparent distress General Appearance: cooperative, comfortable and well kempt HEENT normocephalic and head/scalp atraumatic Eyes EOMs intact bilaterally and conjunctivae normal Neck full ROM General: normal visual inspection Chest inspection of chest normal and palpation of chest normal Resp normal respiratory effort and normal air movement Effort and Inspection: able to speak in complete sentences Cardio regular rate and peripheral pulses 2+ throughout GI soft to palpation, non-tender and non-distended Back/Spine Back/Spine Narrative: Dressings clean dry and intact. Incisions well approximated with interrupted sutures in place. No tenderness erythema drainage or fluctuance Cervical Spine: cervical ROM normal Thoracic Spine / Upper Back: normal to inspection Lumbar Spine / Lower Back: normal to inspection Extremity normal to inspection, full ROM, normal capillary refill, no clubbing, cyanosis or edema and no calf tenderness Skin no rashes or lesions noted General Skin Exam: no breakdown Neuro oriented x3, CN's II-XII intact bilaterally, moves all extremities, no focal motor deficits, no sensory deficits noted and deep tendon reflexes 2+ bilateral ly Motor Exam: strength 5/5 throughout and muscle tone normal throughout ABG / Lab / Microbiology Data Result Diagrams: 04/20/23 11:10 04/20/23 09:00 D/C Instructions Discharge Diet: No restrictions Lifting Restrictions: 5 pounds Additional Activity Instructions: No repetitive bending twisting or lifting greater than 5 pounds Call your doctor if your incision/area has: Continuous Slow Oozing, Sudden Increased Bleeding, Increased Pain/ Swelling, Increased Redness, Foul Smelling Discharge and Swelling at the incision site Call your doctor if you observe: Fever of 101 or Higher, Coldness, Increased Pain, Numbness or Tingling, Change in Color, Inability to urinate, Inability to have a bowel movement, Using more than 1 pad per hour, Shortness of breath, Dizziness, Fainting spells, Swelling in the ankles, Chest pain, Prolonged hiccupping, Increased palpitations (irregular heartbeat), Calf discomfort and Uncontrolled pain Cleanse incision/area with: Do not get Incision Wet and Keep Dressing Clean & D ry Additional Dressing/Incision Instructions: Change dressing daily with iodine gauze and tape. Use waterproof dressing to shower Additional Instructions: 1. During your procedure, you received sedation through your IV. Please follow these instructions for the next 24 hours: Do not drive a motor vehicle, do not drink any alcoholic beverages, and do not sign any legal documents or make personal or business decisions. A responsible adult should stay with you at least 6 hours after the procedure. 2. Keep your surgical site/incision clean and the dressing dry and intact. You may use an ice pack at the surgical site to reduce any swelling or discomfort. 3. Monitor the incision site for any signs or symptoms of infection. Watch for redness, excessive swelling or drainage, or continued pain at the incision site after 3 days. Contact your physician immediately for a fever, chills or a temperature of 101.5? F or greater. 4. Take your medication exactly as prescribed by your physician. Do not attempt to wean yourself off any of your medications even though your pain is improving. This process needs to be carefully monitored by your doctor. Take any antibiotics prescribed exactly as directed and until they are gone. 5. Avoid stretching, bending, pulling, twisting or any sudden movements. Do not bend or twist at the waist. 6. No lifting greater than 5 pounds. 7. Do not operate a motor vehicle, equipment or a power tool while taking pain medication 8. Do not have any manipulation done by a chiropractor or any other physician without first consulting with the surgeon 9. Please contact our office if you are even scheduled for a CT scan or an MRI. 10. Please call us if you have any questions, problems or concerns. Please Follow Up With: Alexys Roger, DO Meaningful Use Info Meaningful Use Diagnoses (Choose all that apply): None applicable Discharge Plan Admission Admit Date/Time: 04/20/23 09:33 Attending Provider: Alexys Roger Primary Care Provider: Gabriela Dickens Consulting Providers: Ignacio Desir Discharge Orders/Prescriptions Prescriptions: New hydrocodone-acetaminophen 5-325 mg tablet 1 tab PO Q8H PRN (Reason: Pain) 7 Days Qty: 21 0RF Continued atorvastatin [Lipitor] 40 mg tablet 40 mg PO QHS carvedilol 25 mg tablet 25 mg PO BID clonidine HCl 0.3 mg tablet 0.3 mg PO BID furosemide [Lasix] 40 mg tablet 40 mg PO .SATSUN Rx Instructions: only on monday and monday fenofibrate micronized 134 mg capsule 134 mg PO DAILY spironolactone 25 mg tablet 25 mg PO BID glucosamine-chondroitin 900 mg tablet 1,800 mg PO DAILY Calcium Acetate 667 MG capsule 2 tab PO TID insulin glargine [Lantus U-100 Insulin] 100 unit/mL Solution 25 unit SUBCUT QPM Rx Instructions: took 12 units night before surgery insulin lispro 100 unit/mL Insulin Pen 5 - 15 unit SUBCUT TID PRN (Reason: SLIDING SCALE) Referrals / Follow Up: Gabriela Dickens MD [Primary Care Provider] - Alexys Roger DO [Med Staff - Active Staff] - Disposition Disposition (needs filled in before D/C Order can be placed): Home, Self Care
[2023-04-20 09:33] LABS: ALB/GLOB Ratio 0.7 RATIO (0.9-2.4); AST(SGOT) 26 U/L (15-37); Alanine Aminotransfer ALT/SGPT 20 U/L (13-56); Albumin, Serum 2.8 g/dL (3.2-5.0); Alkaline Phosphatase 106 U/L (45-117); Anion Gap 7 (5-15); BUN 38 mg/dL (7-18); Calcium,Total 8.5 mg/dL (8.5-10.1); Chloride 105 mmol/L (98-107); EST Glomerular Filtration Rate 11 mL/min (>60); Est Glom Filt Rate - Afr Amer 13 mL/min (>60); Globulin 3.8 g/dL (2.2-4.2); Glucose 63 mg/dL (74-106); Potassium 4.2 mmol/L (3.5-5.1); Protein, Total 6.6 g/dL (6.4-8.2); Sodium Level 142 mmol/L (136-145)
[2023-04-20 09:44] LABS: Scan Indicated on CBC? Y/N YES- FLAGS NOTED
[2023-04-20 10:13] LABS: Bedside Glucose 56 mg/dL (74-106)
[2023-04-20 10:33] LABS: Bedside Glucose 158 mg/dL (74-106)
[2023-04-20 11:41] LABS: POSITIVE COUNT YES; Platelet Count 70 K/mm3 (150-450)
[2023-04-20 11:42] LABS: Differential Indicated SCAN CRITERIA MET
[2023-04-20] MEDS: THROMBIN (RECOMBINANT) 20,000 UNIT VIAL 20000 UNIT TOPICAL (12:43)
[2023-04-20] MEDS: Cefazolin 2 GM in 0.9% Normal Saline 100 ML IV (12:52)
--- NOTE | 2023-04-20 12:57 | RAD_ITS ---
PROCEDURE: Spinal cord stimulator placement. DATE OF EXAMINATION: April 20, 2023. INDICATION: Female, 83 years old. Chronic low back pain. FLUOROSCOPY TIME (if supplied): (32.2 seconds) minutes/seconds. 7.9 mGy RAD/Spine 1 View Any Level IMPRESSION: Intraoperative imaging provided for spinal cord stimulator placement. The electrodes are at the T8-T9 level. Electronically Signed: Gal Guzman MD at 14:44 EDT ,
[2023-04-20] MEDS: Bupivacaine 0.25% 30 ML Vial (14:22)
[2023-04-20 15:11] LABS: Bedside Glucose 115 mg/dL (74-106)
--- NOTE | 2023-04-20 20:32 | CON.PCM.HO_ITS ---
Assessment & Plan Assessment/Plan (1) Lumbar spondylosis: (2) ESRD (end stage renal disease) on dialysis: (3) Hypertension associated with chronic kidney disease due to type 2 diabetes mellitus: (4) ESRD (end stage renal disease): (5) Hyperlipidemia: (6) Diabetes type 2, uncontrolled: PLAN: Plan Patient is an 80-year-old lady admitted after lumbar spondylosis surgery. 1.? Back surgery - management per Surgery, pain control. ambulation per surgery recs. 2.? End-stage renal disease ?Patient is on hemodialysis on Wednesdays and Fridays consultation placed to nephrology for dialysis orders 3.? Diabetes mellitus type II -Complications including diabetic nephropathy .? Placed on long acting insulin, Accu-Cheks a.c. and at bedtime and covered with sliding scale insulin 4.? Dyslipidemia ?Patient is on Statin 5.? Essential hypertension ?Patient blood pressure medications continued 6.? DVT prophylaxis ?SC heparin HPI Consult Data Date of Consult: 04/20/23 HPI Narrative Reason for Consultation: Medical management. HPI Narrative: JOSE REYES, is a 83 F was admitted with T9-10 partial bilateral laminectomies, dorsal column stimulator paddle lead placement, subcutaneous placement of dorsal column stimulator generator. Her pain is well controlled. She said she feels really good right now, in good spirits. She has hypertension. This is well controlled. She is on dialysis MWF and is compliant at [facility] in [place] and has no volume overload. She also has diabetes She is planning to go to [place], [place] to recuperate and actually has dialysis set up there for tomorrow. [facility] Medical History (Updated 04/20/23 @ 09:[address] Alexys Roger, DO) Ambulates with cane Arthritis Back pain Bilateral edema of lower extremity Cancer Carotid artery stenosis Carpal tunnel syndrome Carpal tunnel syndrome of left wrist Cholelithiasis Chronic renal failure, stage 4 (severe) CPAP (continuous positive airway pressure) dependence Diabetes type 2, uncontrolled Diabetic retinopathy, nonproliferative, mild Dietary restriction DJD (degenerative joint disease), lumbar Easy bruising Former smoker Heartburn History of colon polyps History of echocardiogram History of edema History of renal dialysis History of renal disease History of stress test HTN (hypertension) Hyperlipidemia Hyperparathyroidism, secondary Insulin dependent diabetes mellitus Melanoma Problem with dialysis access Pulmonary hypertension Spinal stenosis, lumbar Squamous cell carcinoma Thyroid adenoma Vitamin D deficiency Walker as ambulation aid Wears glasses Wears partial dentures Home Medications atorvastatin 40 mg tablet (Lipitor) 40 mg PO QHS cholesterol 11/09/17 [History Last Taken 07/04/20 22:00] clonidine HCl 0.3 mg tablet 0.3 mg PO BID blood pressure 10/09/18 [History Last Taken 04/20/23 07:00] Calcium Acetate 2 tab PO TID supplement 06/16/22 [History Last Taken Unknown] antiarthritic combination no.2 900 mg tablet (glucosamine-chondroitin) 1,800 mg PO DAILY 06/16/22 [History Last Taken Unknown] carvedilol 25 mg tablet 25 mg PO BID blood pressure 06/16/22 [History Last Taken 04/20/23 07:00] fenofibrate micronized 134 mg capsule 134 mg PO DAILY 06/16/22 [History Last Taken Unknown] furosemide 40 mg tablet (Lasix) 40 mg PO .SATSUN diuretic 06/16/22 [History Last Taken Unknown] spironolactone 25 mg tablet 25 mg PO BID 06/16/22 [History Last Taken Unknown] insulin glargine 100 unit/mL subcutaneous solution (Lantus U-100 Insulin) 25 unit subcut QPM 04/19/23 [History Last Taken 04/19/23 21:00] insulin lispro 100 unit/mL subcutaneous pen 5 - 15 unit subcut TID PRN SLIDING SCALE 04/19/23 [History Last Taken Unknown] hydrocodone-acetaminophen 5-325mg 5mg-325mg 1 tab PO Q8H PRN Pain 7 days #21 tabs 04/20/23 [Rx Last Taken Unknown] Allergy/AdvReac Type Severity Reaction Status Date / Time No Known Allergies Allergy Verified 04/20/23 09:15 Family History Mother Diabetes Heart disease Hypertension High cholesterol Seizures Father Diabetes Heart disease High cholesterol Hypertension Kidney disease CVA (cerebral vascular accident) Surgical History (Updated 04/19/23 @ 14:49 by Rubia Modi) H/O bilateral cataract extraction H/O carpal tunnel repair H/O colonoscopy H/O laminectomy Hx of arteriovenostomy for renal dialysis Hx of arteriovenostomy for renal dialysis melanoma removal S/P CECILIO-BSO Social History Smoking Status: Former smoker pack-years: 20 Tobacco: How many years used: 20 how long ago did patient quit smoking: Quit in her 40s second hand exposure: No alcohol intake: never substance use type: does not use ROS ROS Narrative pertinent positives above in HPI Physical Exam Const alert, no apparent distress, average body habitus and healthy appearing General Appearance: cooperative HEENT normocephalic and head/scalp atraumatic Resp normal respiratory effort and no retractions Cardio regular rate and regular rhythm GI normal to inspection, nondistended, normoactive bowel sounds Psych affect normal Medical Records Data Attestation: I reviewed the patient's medical records Lab / Micro Data Attestation: I reviewed the patient's lab results. Result Diagrams: 04/20/23 11:10 04/20/23 09:00 Labs: Laboratory Results - last 24 hr 04/20/23 08:59: POC Glucose 56 L 04/20/23 09:00: Blood Type O POSITIVE, Antibody Screen NEGATIVE 04/20/23 09:00: WBC 3.1 L, RBC 3.29 L, Hgb 10.6 L, Hct 33.6 L, MCV 102.1 H, MCH 32.2 H, MCHC 31.5 L, RDW Std Deviation 55.1 H, RDW Coeff of Rohan 14.6, Plt Count , Differential Comment 04/20/23 09:00: Sodium 142, Potassium 4.2, Chloride 105, Carbon Dioxide 30.0, Anion Gap 7, BUN 38 H, Creatinine 4.20 H, Est GFR (MDRD) Af Amer 13 L, Est GFR (MDRD) Non-Af 11 L, BUN/Creatinine Ratio 9.0 L, Glucose 63 L, Calcium 8.5, Total Bilirubin 0.50, AST 26, ALT 20, Alkaline Phosphatase 106, Total Protein 6.6, Albumin 2.8 L, Globulin 3.8, Albumin/Globulin Ratio 0.7 L 04/20/23 09:50: Plt Count Cancelled 04/20/23 10:16: POC Glucose 158 H 04/20/23 11:10: Plt Count 70 L 04/20/23 14:52: POC Glucose 115 H Charges/Coding Visit Charges Office Visits / Consults: 25183 IP Consult L3
[2023-04-20] MEDS: Lactated Ringers 1,000 ML 100 ML IV (20:40)
[2023-04-20] MEDS: Atorvastatin Calcium 40 MG Tablet PO (20:43)
[2023-04-20] MEDS: cloNIDine HCl 0.1 MG Tablet 0.3 MG PO (20:43)
[2023-04-20] MEDS: Carvedilol 25 MG Tablet PO (20:44)
[2023-04-20] MEDS: Acetaminophen 500 MG Tablet 1000 MG PO (20:44)
[2023-04-20] MEDS: Insulin Glargine-YFGN 100 UNIT/ML Pen 25 UNIT SC (22:03)
[2023-04-20 22:25] LABS: Bedside Glucose 254 mg/dL (74-106)
[2023-04-21] MEDS: Nystatin Powder 15gm Bottle 1 APPLIC TOPICAL ×2 (02:32→09:04)
[2023-04-21 02:33] VITALS: BP 149/50; PULSE 74; RESP 16; TEMP 36.4; O2SAT 97
[2023-04-21 06:31] VITALS: BP 155/45; PULSE 71; RESP 16; TEMP 37.1; O2SAT 95
[2023-04-21] MEDS: Acetaminophen 500 MG Tablet 1000 MG PO (06:36)
[2023-04-21] MEDS: Calcium Acetate 667 MG Capsule 1334 MG PO ×2 (06:36→08:54)
[2023-04-21 07:21] LABS: Bedside Glucose 259 mg/dL (74-106)
[2023-04-21] MEDS: Insulin Lispro 100 UNIT/ML INSULN.PEN SC (07:38)
[2023-04-21 08:34] VITALS: BP 128/29; PULSE 74; RESP 16; TEMP 36.6; O2SAT 94
[2023-04-21] MEDS: Carvedilol 25 MG Tablet PO (08:55)
[2023-04-21] MEDS: cloNIDine HCl 0.1 MG Tablet 0.3 MG PO (08:55)
[2023-04-21] MEDS: Cefazolin 1 GM/50 ML BAG IV (09:02)
[2023-04-21 09:23] VITALS: PULSE 76
--- NOTE | 2023-04-21 10:07 | CASEMGMT ---
Addendum entered by Steffanie Lance 04/21/23 10:45: Pt states she does not have/wear home O2. Original Note: RN?CM?OVERNIGHT STOCKER?CM?to room to meet with patient for initial transition planning/care coordination?assessment.?RN?CM?introduced self and role at [facility].? Pt voices understanding and consents to?assessment?at this time.? Pt sitting up in chair in room in no distress at this time.? Pt is A/O at this time and answers all questions appropriately.?? Care providers, pharmacy, and demographics verified/updated at this time. PCP: Dr Dickens Specialists: Dr Roger-ortho. Dr Rowland--nephro in [place]. Dialysis: Pt goes to [facility] in [facility]. Chair time: 6 AM Preferred Pharmacy: [facility] Insurance: [employer] Prescription Benefit:?Yes Living Will/HPOA:?Has both LW and HCPOA, who is her LNOK: , children Living Arrangements: Lives w/. Indep w/ADL's. has been assisting w/walking and getting in/out of the car when needed. They share home mgnt tasks. [facility] [place] [facility] Condo is one-level and one step to enter. Transportation:?Pt states drives self and states no transportation concerns at this time.? also drives. DME: ?States has the following DME:?shower chair, cane, walker, CPAP, functioning glucometer w/supplies ?Pt states no need for further DME at this time.? HHC/SNF: No hx of either. No needs identified. Pt wishes to return home and states has no concerns with going home at time of discharge.? CM?to follow for any discharge planning/needs.? Pt voices no concerns/needs at this time.? Advised pt to ask for?CM?if any questions/concerns/needs arise.? Voices understanding. PLAN:??Home w/spousal support and discharge plans in place. Samantha MCCANNN?RN?CM
--- NOTE | 2023-04-21 11:05 | PHA.DC.MC ---
Pharmacy Service has performed discharge medication reconciliation and counseling for this patient. 1. NORCO 5/325MG 1T PO Q8H PRN PAIN The patient's discharge medication list was reviewed for discrepancies and discrepancies were resolved. Home Medications atorvastatin 40 mg tablet (Lipitor) 40 mg PO QHS cholesterol 11/09/17 clonidine HCl 0.3 mg tablet 0.3 mg PO BID blood pressure 10/09/18 Calcium Acetate 2 tab PO TID supplement 06/16/22 antiarthritic combination no.2 900 mg tablet (glucosamine-chondroitin) 1,800 mg PO DAILY 06/16/22 carvedilol 25 mg tablet 25 mg PO BID blood pressure 06/16/22 fenofibrate micronized 134 mg capsule 134 mg PO DAILY 06/16/22 furosemide 40 mg tablet (Lasix) 40 mg PO .SATSUN diuretic 06/16/22 spironolactone 25 mg tablet 25 mg PO BID 06/16/22 insulin glargine 100 unit/mL subcutaneous solution (Lantus U-100 Insulin) 25 unit subcut QPM 04/19/23 insulin lispro 100 unit/mL subcutaneous pen 5 - 15 unit subcut TID PRN SLIDING SCALE 04/19/23 hydrocodone-acetaminophen 5-325mg 5mg-325mg 1 tab PO Q8H PRN Pain 7 days #21 tabs 04/20/23 The patient was counseled on the following discharge medications and changes in medications for homegoing were reviewed. The Reason for Use, instructions for use, and potential side effects were reviewed for all new medications. The patient's questions regarding all of their medications were answered. The patient was able to verbally demonstrate an understanding of their discharge medications. Patient counseled by on call pharmacy technicianSloan.
--- NOTE | 2023-04-21 12:27 | PN_ITS ---
Subjective Subjective Patient seen and examined. She had no complaints and had an uneventful night. Review of systems is otherwise negative. Pain is well controlled. Review of systems is otherwise negative. Objective Data Objective Data Vital Signs: Vital Signs Temp Pulse Resp BP Pulse Ox O2 Del Method O2 Flow Rate 98 F 76 16 128/29 H 94 Room Air 2 04/21/23 08:34 04/21/23 09:23 04/21/23 08:34 04/21/23 08:34 04/21/23 08:34 04/21/23 08:34 04/20/23 16:00 Oxygen Flow Rate (L/min) 2 Oxygen Delivery Method Room Air Weight: 179 lb 14.355 oz Body Mass Index (BMI) 34.0 Intake & Output: Intake and Output for Last 24 Hours 04/19/23 04/20/23 04/21/23 23:59 23:59 23:59 Intake Total 650.92 / 650.92 50 / 50 Balance 650.92 / 650.92 50 / 50 Lab / Micro Data Result Diagrams: 04/20/23 11:10 04/20/23 09:00 Labs: Laboratory Results - last 24 hr 04/20/23 14:52: POC Glucose 115 H 04/20/23 22:01: POC Glucose 254 H 04/21/23 06:28: POC Glucose 259 H Physical Exam Const alert, oriented x3 and no apparent distress General Appearance: cooperative HEENT normocephalic, head/scalp atraumatic and moist oral mucous membranes Eyes PERRL and EOMs intact bilaterally Neck no lymphadenopathy, supple and no JVD Lymph Lymphatic: no lymphadenopathy noted and no lymphedema noted Resp normal respiratory effort, normal air movement and clear to auscultation bilaterally Cardio regular rate, regular rhythm, S1 normal heart sound, S2 normal heart sound and no murmurs Peripheral Pulses: pulses 2+ throughout GI normal to inspection, nondistended, normoactive bowel sounds, soft to palpation, non-tender and non-distended Extremity normal capillary refill, no clubbing, cyanosis or edema and no calf tenderness General Extremity: no tenderness to palpation of joints or extremities Skin Skin Narrative: intact dressing over surgical site on lower back General Skin Exam: no breakdown Neuro CN's II-XII intact bilaterally, no focal motor deficits, no sensory deficits noted and deep tendon reflexes 2+ bilaterally Psych thought process normal, cooperative and affect normal Appearance: appropriate Assessment & Plan Assessment/Plan (1) Lumbar spondylosis: PLAN: Plan #Lumbar stenosis s/p bilateral laminectomy of T9-T10 * today is POD 1 * pain is well controlled * management as per spine surgery * PT/OT on board * fall precautions * #ESRD: on hemodialysis MWF. nephrology on board #Type 2 diabetes mellitus * complicated by nephropathy * on lantus * ISS. Accuchecks ACHS * #Hyperlipidemia: on atorvastatin. #Benign essential hypertension * on carvedilol and clonidine * DVT prophylaxis; as per primary team spine surgery Charges/Coding Visit Charges Inpatient E&M: 17639 Subs Hosp L2
== END 2023-04-21 12:34 | disposition home or self-care (01) ==
LOC: SDC 16:07 → MS3 16:07
PROVIDERS: Anesthesiology; Admitting Provider Orthopaedic Surgery; PCP Internal Medicine; Referring Provider Orthopaedic Surgery; Visit Provider Orthopaedic Surgery
PROC: (CPT 63655; principal; 2023-04-20 12:00)
DX: Z45.42 Encounter for adjustment and management of neurostimulator (principal); Z99.2 Dependence on renal dialysis; E11.22 Type 2 diabetes mellitus with diabetic chronic kidney disease; N18.6 End stage renal disease; I12.0 Hypertensive chronic kidney disease with stage 5 chronic kidney disease or end stage renal disease; Z79.4 Long term (current) use of insulin; M48.061 Spinal stenosis, lumbar region without neurogenic claudication; M47.816 Spondylosis without myelopathy or radiculopathy, lumbar region; Z87.891 Personal history of nicotine dependence; G89.29 Other chronic pain; E78.00 Pure hypercholesterolemia, unspecified; Z79.899 Other long term (current) drug therapy; M19.90 Unspecified osteoarthritis, unspecified site; M41.86 Other forms of scoliosis, lumbar region; M96.1 Postlaminectomy syndrome, not elsewhere classified; G47.33 Obstructive sleep apnea (adult) (pediatric)
CPT/HCPCS: 63685; 63655; 00300; 36415; 36430; 72020; 76000; 80053; 82962; 85027; 85049; 86850; 86900; 86901; 86965; 96365; 97161; 99221; C1778; C1820; J7040; J7120; P9035; G0378; J2405

== ENCOUNTER → 2023-07-25 | Outpatient (CLI) | payer MEDICARE, OTHER, SELFPAY ==
--- NOTE | 2023-07-25 10:16 | CDU_ITS ---
Reason For Study: Lt Carotid Stenosis Rt. Velocities/BP Lt. Velocities/BP Prox CCA 84.6/10.0 cm/sec. Prox CCA 100.8/17.3 cm/sec. Mid CCA 86.4/8.4 cm/sec. Mid CCA 74.4/10.8 cm/sec. Dist CCA 69.9/8.4 cm/sec. Dist CCA 78.8/15.1 cm/sec. Prox ICA 74.3/17.1 cm/sec. Prox ICA 161.3/15.8 cm/sec. Mid ICA 99.6/17.1 cm/sec. Mid ICA 95.3/22.8 cm/sec. Dist ICA 84.2/18.2 cm/sec. Dist ICA 86.7/20.4 cm/sec. Rt. ICA/CCA = 1.2. Lt. ICA/CCA = 2.2. Prox ECA 77.1/0.0 cm/sec. Prox ECA 138.1/4.2 cm/sec. Rt. Vert. 64.4/11.7 cm/sec. Lt. Vert. 30.3/9.0 cm/sec. Right Extracranial There is homogeneous, smooth atherosclerotic plaque noted in the right common carotid artery. There is heterogeneous, irregular atherosclerotic plaque noted in the right internal carotid artery. There is heterogeneous, irregular atherosclerotic plaque noted in the right external carotid artery. Antegrade flow is noted in the right vertebral artery. Left Extracranial There is homogeneous, smooth atherosclerotic plaque noted in the left common carotid artery. There is heterogeneous, irregular atherosclerotic plaque noted in the left internal carotid artery. The atherosclerotic plaque causes acoustic shadowing. There is heterogeneous, irregular atherosclerotic plaque noted in the left external carotid artery. Antegrade flow is noted in the left vertebral artery. Procedure Carotid Duplex 43606. This is a Carotid Duplex examination using B-mode, color flow and specral Doppler. The exam was diagnostic. Exam performed in department. VL/Carotid Duplex Ultrasound Interpretation Summary Irregular calcific plaque at the proximal right internal carotid artery with le ss than 50% stenosis Less than 50% stenosis right external carotid artery Extensive calcific plaque with shadowing at the proximal left internal carotid artery with 50 to 69% stenosis Less than 50% stenosis left external carotid artery Patent and antegrade vertebral arteries bilaterally No change from the previous examination of July 21, 2022 Ordering Physician: Hans Rousseau Referring Physician: Gabriela Dickens Performed By: Chele Negron RVT
== END | disposition home or self-care (01) ==
LOC: CVS 10:16
PROVIDERS: PCP Internal Medicine; Referring Provider Surgery; Visit Provider Surgery
DX: I65.21 Occlusion and stenosis of right carotid artery (principal)
CPT/HCPCS: 93880

== ENCOUNTER → 2024-06-25 | Outpatient (CLI) | payer MEDICARE, OTHER, SELFPAY | END | disposition home or self-care (01) | LOC: PSN 10:45 | PROVIDERS: PCP Internal Medicine; Referring Provider Nurse Practitioner Acute Care; Visit Provider Nurse Practitioner Acute Care | DX: I27.20 Pulmonary hypertension, unspecified (principal) | CPT/HCPCS: 94060; 94726; 94729 ==

== ENCOUNTER 2025-03-12 11:29 | Emergency (ER) | payer MEDICARE, SELFPAY ==
[2025-03-12] VITALS (7 sets, daily range): BP systolic 162–191; BP diastolic 60–142; PULSE 67–71; RESP 15–18; TEMP 36.3–36.6; O2SAT 95–99
--- NOTE | 2025-03-12 11:34 | EKG12_ITS ---
Test Reason : SOB Blood Pressure : */* mmHG Vent. Rate : 67 BPM Atrial Rate : 67 BPM P-R Int : 164 ms QRS Dur : 88 ms QT Int : 422 ms P-R-T Axes : 71 -42 53 degrees QTcB Int : 445 ms Normal sinus rhythm Left axis deviation Possible Anterior infarct , age undetermined Abnormal ECG Confirmed by Bo Jernigan ([id number]), medical transcription editor VIJAYA PRITCHETT ([id number]) on 03/14/2025 12:45:30 PM Referred By: Confirmed By: Bo Jernigan
[2025-03-12 11:57] LABS: Absolute Lymphocyte Count 0.78 X10^3/uL (0.83-4.51); Absolute Neutrophil Count 0.9 X10^3/uL (2.0-7.7); Basophil# 0.01 X10^3/uL; Basophil% 0.5 % (0-1); Eosinophil# 0.02 X10^3/uL; Hematocrit 35.2 % (37-47); Hemoglobin 11.4 g/dL (12.0-15.0); Lymphocyte # 0.78 X10^3/ul (0.83-4.51); Lymphocyte % 38.6 % (19-41); Mean Corp Hgb Conc 32.4 g/dL (32-36); Mean Corpuscular Hgb 30.6 pg (27.0-32.0); Mean Corpuscular Volume 94.6 fL (81-99); Mean Platelet Vol. 12.3 fl (6.2-12.0); Monocyte# 0.24 X10^3/uL; Monocyte% 11.9 % (0-10); NRBC Flagged by Analyzer 0 % (0-5); Neutrophil # 0.94 X10^3/uL (2.7-7.7); Neutrophil % 46.5 % (47-70); POSITIVE COUNT YES; POSITIVE DIFFERENTIAL YES; RBC Distribution Width SD 55.8 fl (35.1-43.9); Red Blood Count 3.72 M/mm3 (4.2-5.4)
[2025-03-12 12:28] LABS: Differential Indicated SCAN CRITERIA MET; Platelet Estimate MOD DEC (ADEQ)
[2025-03-12 12:37] LABS: Anion Gap 13 (5-15); BUN 46 mg/dL (4-19); BUN/Creat Ratio 9.4 RATIO (10-20); Calcium,Total 8.4 mg/dL (7.6-11.0); Carbon Dioxide 22.8 mmol/L (21.0-32.0); Chloride 105 mmol/L (98-108); Creatinine, Serum 4.85 mg/dL (0.70-1.20); EST Glomerular Filtration Rate 8 (>60); Glucose 193 mg/dL (70-99); Potassium 4.8 mmol/L (3.3-5.1); Sodium Level 140 mmol/L (133-145)
[2025-03-12 12:40] LABS: Troponin T High Sensitivity 166 ng/L (<=14)
--- NOTE | 2025-03-12 12:40 | RAD_ITS ---
PROCEDURE: CHEST 1 VIEW (PORTABLE), 03/12/2025 REASON FOR EXAM: SOB TECHNIQUE: A single portable AP view of the chest was obtained. COMPARISON: 06/30/2020 ; note that images only are available for review, the report is not available at the time of the dictation. FINDINGS: Heart: Similar mild cardiomegaly. Mediastinum: Similar atherosclerosis, central vascular prominence, and contours including widening of the RIGHT paratracheal stripe. Lungs/pleura: Grossly similar mild bibasilar airspace disease favoring atelectasis/scarring. Trace to small bilateral effusions suspected. No visible pneumothorax. Bones: Suspect demineralization. Lines and support devices: None. Other: Interval placement of a partially imaged ascending thoracic spinal stimulator.. RAD/Chest 1 View (Portable) IMPRESSION: 1. Cardiomegaly and central vascular prominence with suspected trace to small b ilateral pleural effusions. No overt pulmonary edema. 2. Similar mild bibasilar airspace disease favoring atelectasis/scarring. 3. Additional description as above. Reading Location: [id number]
[2025-03-12 13:50] LABS: Mucous, Urine 0 SEEN /hpf (<or=2+)
[2025-03-12 13:54] LABS: Color, Urine Yellow (Yellow); Glucose, Dipstick 250 mg/dl (Normal); Ketone-Dipstick Negative (Negative); Leukocyte Esterase-Dipstick 500 /ul (Negative); Nitrite-Dipstick Negative (Negative); Occult Blood-Urine 150 /ul (Negative); Protein-Dipstick 500 mg/dl (Negative); Urine Bilirubin Dipstick Negative (Negative); Urine Clarity Sl. Cloudy (Clear); Urine Urobilinogen Normal (Normal)
[2025-03-12 14:11] LABS: Bacteria 2+ /hpf (None Seen); Squamous Epithelial Cells - UA 0-5 SEEN /hpf (5-10)
[2025-03-12 14:12] LABS: Red Blood Cells-Urine 0-5 SEEN /hpf (0-5); White Blood Cells 10-25 SEEN /hpf (0-5)
[2025-03-12 14:13] LABS: Troponin T High Sens 2 HR 158 ng/L (<=14)
[2025-03-12 16:13] LABS: Troponin T High Sens 4 HR 144 ng/L (<=14)
--- NOTE | 2025-03-12 16:49 | EDS_ITS ---
HPI History of Present Illness Chief Complaint: Shortness of Breath Informant: patient and spouse/S.O. Narrative Narrative: 85-year-old female history of end-stage renal disease on dialysis hypertension diabetes hyperlipidemia presenting to the emergency department chief complaint of dyspnea. Patient states that she noticed some significant dyspnea today both during the night and when she woke. She states she was recently seen at [facility] and then transferred to [facility] where she was admitted for this dyspnea. She states that nothing was found that she knows of. She states that she had a UTI that was treated recently she started to feel some burning with urination. She states typically she urinates 4-5 times per day. She gets dialysis Monday. She is missing dialysis today and will have dialysis on Monday. She states that she typically does well if she has to occasionally miss a treatment. She denies any fever or significant cough. She adamantly denies any chest pain or chest pressure. She notes no change in her legs or pain in her calves. [facility] Medical History Wears glasses Wears partial dentures Cancer Insulin dependent diabetes mellitus Walker as ambulation aid Ambulates with cane Arthritis History of renal disease Easy bruising Back pain Dietary restriction Heartburn Former smoker CPAP (continuous positive airway pressure) dependence History of edema History of echocardiogram History of stress test History of renal dialysis Pulmonary hypertension Cholelithiasis History of colon polyps Thyroid adenoma Vitamin D deficiency Hyperparathyroidism, secondary Carotid artery stenosis Bilateral edema of lower extremity DJD (degenerative joint disease), lumbar Spinal stenosis, lumbar Diabetic retinopathy, nonproliferative, mild Squamous cell carcinoma Carpal tunnel syndrome of left wrist Problem with dialysis access Chronic renal failure, stage 4 (severe) Melanoma Carpal tunnel syndrome HTN (hypertension) Hyperlipidemia Diabetes type 2, uncontrolled Home Medications ?Medication ?Instructions ?Recorded ?Last Taken ?Type atorvastatin 40 mg tablet (Lipitor) 40 mg PO QHS rosalia sterol 11/09/17 07/04/20 22:00 History clonidine HCl 0.3 mg tablet 0.3 mg PO BID blood pressu re 10/09/18 04/20/23 07:00 History carvedilol 25 mg tablet 25 mg PO BID blood pressure 06/16/22 04/20/23 07:00 History fenofibrate micronized 134 mg 134 mg PO DAILY 06/16/22 Unknown History capsule aspirin 81 mg chewable tablet 81 mg PO DAILY 05/01/24 Unknown History insulin glargine 100 unit/mL (3 24 - 26 unit subcut QH S 05/08/24 Unknown History mL) subcutaneous pen (Lantus Solostar U-100 Insulin) insulin lispro 100 unit/mL 4 - 6 unit subcut TID 05/08 Unknown History subcutaneous pen (Humalog KwikPen (U-100) Insulin) furosemide 40 mg tablet (Lasix) 40 mg PO DAILY diureti c 06/19/24 Unknown History cephalexin 500 mg capsule 500 mg PO Q6 #28 CAPSULES Unknown Rx Allergy/AdvReac Type Severity Reaction Status Date / Time No Known Allergies Allergy Verified 03/12/25 11:32 Family History Mother Diabetes Heart disease Hypertension High cholesterol Seizures Father Diabetes Heart disease High cholesterol Hypertension Kidney disease CVA (cerebral vascular accident) Surgical History History of back surgery Hx of arteriovenostomy for renal dialysis Hx of arteriovenostomy for renal dialysis H/O bilateral cataract extraction H/O colonoscopy H/O laminectomy melanoma removal H/O carpal tunnel repair S/P CECILIO-BSO Social History Smoking Status: Former smoker pack-years: 20 Tobacco: How many years used: 20 Electronic Cigarette Use: not used how long ago did patient quit smoking: Quit in her 40s second hand exposure: No alcohol intake: never substance use type: does not use ROS ROS ED Constitutional Constitutional ED: Denies chills, fever(s) or weight loss Eyes Eyes: Denies change in vision or diplopia ENT ENT ED: Denies ear pain, rhinorrhea or sore throat Cardiovascular Cardiovascular: Denies chest pain, orthopnea, palpitations or racing heartbeat Respiratory/Chest Respiratory/Chest: Reports dyspnea and dyspnea on exertion; Denies cough or orthopnea Gastrointestinal Gastrointestinal: Denies abdominal pain, diarrhea, nausea or vomiting Genitourinary Genitourinary ED: Reports dysuria; Denies hematuria or urinary frequency Musculoskeletal Musculoskeletal: Denies arthralgias or myalgias Integumentary Denies abscess or rash Neurologic Neurologic: Denies headache(s) or weakness Psychiatric Psychiatric: Denies anxiety, depression, suicidal ideation or suicidal thoughts Endocrine Endocrinology: Denies polydipsia, polyphagia or polyuria Allergic/Immunologic Allergic/Immunologic ED: Denies mouth swelling, tongue swelling or urticaria EXAM Physical Exam Const Vital Signs: 03/12/25 11:30 03/12/25 11:32 03/12/25 12:19 Temperature 97.8 F 97.8 F Temperature Source Oral Oral Pulse Rate 71 71 Respiratory Rate 18 18 Respiratory Effort Respiratory Depth Respiratory Pattern Blood Pressure 166/103 H 166/103 H Blood Pressure Mean 124 124 Pulse Ox 97 97 97 Oxygen Delivery Method Room Air Room Air Room Air 03/12/25 12:19 03/12/25 12:32 03/12/25 13:36 Temperature 97.8 F Temperature Source Temporal Pulse Rate 67 71 Respiratory Rate 15 18 Respiratory Effort Short of Breath Respiratory Depth Normal Respiratory Pattern Normal Blood Pressure 172/142 H 191/60 H Blood Pressure Mean 152 103 Pulse Ox 97 99 Oxygen Delivery Method Room Air Room Air Room Air 03/12/25 15:00 03/12/25 16:57 Temperature 97.4 F L Temperature Source Pulse Rate 70 71 Respiratory Rate 18 16 Respiratory Effort Respiratory Depth Respiratory Pattern Blood Pressure 190/61 H 162/109 H Blood Pressure Mean 104 126 Pulse Ox 95 97 Oxygen Delivery Method Room Air Positive well nourished and well developed General Appearance ED: well developed and NAD HEENT Reports normocephalic, head/scalp atraumatic and moist mucous membranes Eyes PERRL and EOMs intact bilaterally Neck no lymphadenopathy, supple and no JVD Resp normal respiratory effort and clear to auscultation bilaterally Cardio regular rate, regular rhythm and no murmurs GI normal to inspection, nondistended, normoactive bowel sounds and non-tender Palpation: soft Back/Spine no CVA tenderness and normal ROM Extremity General Extremety ED: Yes edema General Extremity: edema left (Chronic for the patient no change from baseline) Neuro oriented x3 and CN's II-XII intact bilaterally Sensorium / Orientation: alert Motor Exam: strength 5/5 throughout Psych mental status grossly normal Mood & Affect: Negative for depressed or tearful Skin no rashes or lesions noted and no wounds MDM MDM MDM Narrative Medical decision making narrative: Differential diagnosis includes pleural effusion pneumonia heart failure volume overload pneumothorax pulmonary embolism hypoxia Manage interpretation of the chest x-ray is no acute process. Labs appear at baseline for the patient hemoglobin 11.4 white count 2.0 platelet count is unable to be counted due to clumping. Her troponins 166-second troponin 158. Urinalysis positive leukocyte esterase negative nitrates 10-25 white cells 2+ bacteria. EKG is sinus with PACs. She ambulates with no hypoxia. She is not dyspneic when she ambulates and has not been dyspneic since being in the room. We we will perform a urine culture and treat with Keflex initially. Patient is comfortable going home at this time as she is otherwise asymptomatic. She remains on the hypertensive side but wonders if that could be from just being here. She did take her morning medications but is due for clonidine. She notes that she has had prior stress testing that have been negative. She does not believe that she had a stress test was at [facility]. History & Record Review Discussion w/independent historian: Patient and Significant other Additional record(s) reviewed:: Prior ED visit and Prior labs Lab Data Attestation: I reviewed the patient's lab results. Labs: Laboratory Results - last 24 hr 03/12/25 03/12/25 03/12/25 11:30 12:18 13:34 WBC 2.0 L RBC 3.72 L Hgb 11.4 L Hct 35.2 L MCV 94.6 MCH 30.6 MCHC 32.4 RDW Std Deviation 55.8 H RDW Coeff of Rohan 16.0 H Plt Count TNP MPV 12.3 H Immature Gran % (Auto) 1.500 H Neut % (Auto) 46.5 L Lymph % (Auto) 38.6 [place] % (Auto) 11.9 H Eos % (Auto) 1.0 Baso % (Auto) 0.5 Absolute Neuts (auto) 0.9 L Absolute Lymphs (auto) 0.78 L Nucleated RBC % 0 Platelet Estimate MOD DEC Sodium 140 Potassium 4.8 Chloride 105 Carbon Dioxide 22.8 Anion Gap 13 BUN 46 H Creatinine 4.85 H Est GFR (MDRD) Non-Af 8 L BUN/Creatinine Ratio 9.4 L Glucose 193 H Calcium 8.4 Troponin T High Sens 166 H* Troponin T Hi Sens 2 Hr 158 H* Troponin T Hi Sens 4Hr Urine Color Yellow Urine Clarity Sl. Cloudy Urine pH 8.0 Ur Specific Dora 1.010 Urine Protein 500 H Urine Glucose (UA) 250 H Urine Ketones Negative Urine Occult Blood 150 H Urine Nitrite Negative Urine Bilirubin Negative Urine Urobilinogen Normal Ur Leukocyte Esterase 500 H Urine RBC 0-5 SEEN Urine WBC 10-25 SEEN Ur Squamous Epith Cells 0-5 SEEN Urine Bacteria 2+ Urine Mucus 0 SEEN 03/12/25 15:25 WBC RBC Hgb Hct MCV MCH MCHC RDW Std Deviation RDW Coeff of Rohan Plt Count MPV Immature Gran % (Auto) Neut % (Auto) Lymph % (Auto) [place] % (Auto) Eos % (Auto) Baso % (Auto) Absolute Neuts (auto) Absolute Lymphs (auto) Nucleated RBC % Platelet Estimate Sodium Potassium Chloride Carbon Dioxide Anion Gap BUN Creatinine Est GFR (MDRD) Non-Af BUN/Creatinine Ratio Glucose Calcium Troponin T High Sens Troponin T Hi Sens 2 Hr Troponin T Hi Sens 4Hr 144 H* Urine Color Urine Clarity Urine pH Ur Specific Dora Urine Protein Urine Glucose (UA) Urine Ketones Urine Occult Blood Urine Nitrite Urine Bilirubin Urine Urobilinogen Ur Leukocyte Esterase Urine RBC Urine WBC Ur Squamous Epith Cells Urine Bacteria Urine Mucus Radiography Diagnostic Testing: Clinical Impression(s) from Imaging Studies Chest X-Ray 03/12/25 12:40 IMPRESSION: 1. Cardiomegaly and central vascular prominence with suspected trace to small bilateral pleural effusions. No overt pulmonary edema. 2. Similar mild bibasilar airspace disease favoring atelectasis/scarring. 3. Additional description as above. Reading Location: [facility] Discharge Plan Triage Chief Complaint: Shortness of Breath ED Provider: Joaquin Castro Dx/Rx/DC Orders Clinical Impression: Acute dyspnea, ESRD (end stage renal disease), Acute UTI Instructions: ED Dyspnea Prescriptions: New cephalexin 500 mg capsule 500 mg PO Q6 Qty: 28 0RF No Action atorvastatin [Lipitor] 40 mg tablet 40 mg PO QHS carvedilol 25 mg tablet 25 mg PO BID clonidine HCl 0.3 mg tablet 0.3 mg PO BID furosemide [Lasix] 40 mg tablet 40 mg PO DAILY fenofibrate micronized 134 mg capsule 134 mg PO DAILY insulin glargine [Lantus Solostar U-100 Insulin] 100 unit/mL (3 mL) insulin pen 24 - 26 unit subcut QHS insulin lispro [Humalog KwikPen Insulin] 100 unit/mL insulin pen 4 - 6 unit subcut TID aspirin 81 mg tablet,chewable 81 mg PO DAILY Primary Care Provider: Gabriela Dickens Referrals: Gabriela Dickens MD [Primary Care Provider] - 3-5 Days Print Language: Luxembourgish Disposition Disposition: Home, Self Care Discharge Date/Time: 03/12/25 16:58
== END 2025-03-12 16:58 | disposition home or self-care (01) ==
PROVIDERS: Emergency Provider Emergency Medicine; PCP Internal Medicine; Visit Provider Emergency Medicine
DX: R06.00 Dyspnea, unspecified (principal); I12.0 Hypertensive chronic kidney disease with stage 5 chronic kidney disease or end stage renal disease; N18.6 End stage renal disease; E11.22 Type 2 diabetes mellitus with diabetic chronic kidney disease; N39.0 Urinary tract infection, site not specified; Z87.891 Personal history of nicotine dependence
CPT/HCPCS: 71045; 80048; 81001; 84484; 85025; 87077; 87086; 87088; 87186; 93005; 94760; 99284; A4216